=== PATIENT | male | born 1980 | race Hispanic/Latino ===

== ENCOUNTER 2020-11-24 15:00 | Emergency (ER) | payer SELFPAY ==
--- OUTSIDE RECORDS SUMMARY | 2020-11-24 15:04 | XMS REPORT | Continuity of Care Document ---
:1980 Author Organization [employer] Care Team Providers Name Role Phone [employer] Unavailable Un available Problems Problem Status Onset Classification Date Comments Sourc e Date Reported Priapism, 02/14/2017 [place] unspecified 7 [place] OTHER Active Sugar 7 [place] Priapism 02/10/[address], [place] PAIN IN GROIN Active Sug ar AREA 7 [place] PAIN IN GROIN Active Sug ar 7 [place] PRIAPISM Active [address] Discharge 06/17/2016 [place] Diagnosis: 6 [place] Priapism, unspecified ABDOMINAL PAIN Active Alzar gar 6 [place] GROIN PAIN Active Sugar 6 [place] Discharge 06/11/2016 [place] Diagnosis: 6 [place] Priapism Discharge 06/11/2016 [place] Diagnosis: 6 [place] Benign hypertension Discharge 02/21/2016 [place] Diagnosis: HTN 6 [place] (hypertension) CHEST PAIN Active [place] 2 [place] Hypertensive Active Problem 02/14/2017 [place] disorder, Medical [facility], arterial [place] (disorder) Priapism Active Problem 02/14/2017 [facility] (disorder) [facility], [place] Medications Medication Details Route Status Patient Ordering Order Source Instructions Provider Date Morphine Notes: (Same Inactive 02/11[facility] Sugar as:MORPhine 2016 [facility] Sulfate) Morphine 2 mg, Route: Inactive 02/11[facility] Sugar IVP, ONCE, 2016 [place] Dosing Weight 89.091, kg, Priority: STAT, Start date: 02/11/17 13:55:00 CDT, Stop date: 02/11/17 13:55:00 CDT phenylephrine 10 Notes: Same Inactive 02/11[facility] Sugar mg/mL injectable as: 2016 [facility] solution Naeem-Synephrin e Terbutaline Notes: DO Inactive Suga r NOT USE IN 2017 [facility] [employer]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 (Same As: Poornima) Sodium Chloride 0.154 1,000 mL, Inactive [place] MEQ/ML Injectable 1,000 ml/hr, 2017 L and Solution Infuse Over: 1 hr, Route: IV, 1,000, Drug form: INJ, ONCE, Priority: STAT, Dosing Weight 89.091 kg, Start date: 02/11/17 13:09:00 CDT, Duration: 1 doses or times, Stop date: 02/11/17 13:09:00 CDT Zofran ODT 4 mg, Route: Inactive [place] PO, Drug 2016 [place] form: TABDIS, ONCE, Dosing Weight 89.091, kg, Priority: STAT, Start date: 02/11/17 13:00:00 CDT, Stop date: 02/11/17 13:00:00 CDT Morphine 4 mg, Route: Inactive [place] IM, ONCE, 2016 [facility] Dosing Weight 89.091, kg, Priority: STAT, Start date: 02/11/17 13:00:00 CDT, Stop date: 02/11/17 13:00:00 CDT Acetaminophen 325 MG 1 tab, PO, Active Sugar / Hydrocodone Q6H, PRN Pain 2016 [facility] Bitartrate 5 MG Oral Score 6-10, Tablet [[place] 5/325] do not drive or operate heavy machinery while taking this medication not to exceed 8 tablets/day, # 15 tab, 0 Refill(s) Amlodipine 10 MG Oral 10 mg = 1 Active Sugar Tablet [Norvasc] tab, PO, 2016 Daily, # 30 tab, 0 Refill(s) Labetalol 20 mg, Route: Inactive [place] IVP, Drug 2016 [place] form: INJ, ONCE, Dosing Weight 85.909, kg, Start date: 02/07/17 12:25:00 CDT, Stop date: 02/07/17 12:25:00 CDT Clonidine 0.2 mg, Inactive [place] Hydrochloride 0.2 MG Route: PO, 2016 [facility] Oral Tablet Drug form: TAB, ONCE, Dosing Weight 85.909, kg, Priority: STAT, Start date: 02/07/17 11:45:00 CDT, Stop date: 02/07/17 11:45:00 CDT Labetalol 20 mg, Route: Inactive [place] IVP, Drug 2017 [place] form: INJ, ONCE, Dosing Weight 85.909, kg, Priority: STAT, Start date: 02/07/17 11:41:00 CDT, Stop date: 02/07/17 11:41:00 CDT Morphine 4 mg, Route: Inactive [place] IM, ONCE, 2016 [place] Dosing Weight 85.909, kg, Priority: STAT, Start date: 02/07/17 11:31:00 CDT, Stop date: 02/07/17 11:31:00 CDT Morphine 4 mg, Route: Inactive [place] IM, ONCE, 2016 [place] Dosing Weight 85.909, kg, Priority: STAT, Start date: 02/07/17 10:40:00 CDT, Stop date: 02/07/17 10:40:00 CDT Zofran ODT 4 mg, Route: Inactive [place] PO, Drug 2016 [place] form: TABDIS, ONCE, Dosing Weight 85.909, kg, Priority: STAT, Start date: 02/07/17 10:40:00 CDT, Stop date: 02/07/17 10:40:00 CDT Zofran ODT 4 mg, Route: Inactive [place] PO, Drug 2016 [place] form: TABDIS, ONCE, Dosing Weight 85.909, kg, Priority: STAT, Start date: 02/07/17 10:39:00 CDT, Stop date: 02/07/17 10:39:00 CDT Morphine 4 mg, Route: Inactive [place] IM, ONCE, 2016 [place] Dosing Weight 85.909, kg, Priority: STAT, Start date: 02/07/17 10:39:00 CDT, Stop date: 02/07/17 10:39:00 CDT Naeem-Synephrine Notes: Same Inactive Mady hammond as: 2017 [place] Naeem-Synephrin e Phenylephrine 10 mg, Route: Inactive Sugar INJ, Q15Min, 2017 [place] Dosing Weight 85.909, kg, PRN, Start date: 02/07/17 10:26:00 CDT, Duration: 30 day, Stop date: 03/09/17 10:25:00 CDT, pripism Lidocaine Notes: (Same Inactive [place] Hydrochloride 10 as: 2016 [place] MG/ML Injectable Xylocaine) Solution Dilaudid 0.5 mg, Inactive [place] Route: IM, 2017 [place] ONCE, Dosing Weight 89.091, kg, Priority: STAT, Start date: 02/01/17 11:03:00 CDT, Stop date: 02/01/17 11:03:00 CDT Zofran 4 mg, Route: Inactive [place] IM, Drug 2016 [place] form: INJ, ONCE, Dosing Weight 89.091, kg, Priority: STAT, Start date: 02/01/17 10:08:00 CDT, Stop date: 02/01/17 10:08:00 CDT Zofran ODT Notes: (Same Inactive [place] as: Zofran 2016 [place] ODT) Dilaudid 0.5 mg, Inactive [place] Route: IM, 2016 [place] ONCE, Dosing Weight 89.091, kg, Priority: STAT, Start date: 02/01/17 10:01:00 CDT, Stop date: 02/01/17 10:01:00 CDT Phenylephrine 1 mg, Route: Inactive S ugar SUB-Q, ONCE, 2016 [facility] Dosing Weight 89.091, kg, Start date: 02/01/17 9:55:00 CDT, Stop date: 02/01/17 9:55:00 CDT Dilaudid 1 mg, Route: Inactive Sugar IVP, ONCE, 2016 [facility] Dosing Weight 89.091, kg, Priority: STAT, Start date: 02/01/17 9:54:00 CDT, Stop date: 02/01/17 9:54:00 CDT Amlodipine 10 mg, Route: Inactive [place] as PO, Drug 2016 Medical form: TAB, Center ONCE, Dosing Weight 100.909, kg, Start date: 01/28/17 14:15:00 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, Stop date: 01/28/17 14:15:00 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 Dilaudid 0.5 mg, Inactive [place] Route: IVP, 2017 Medical ONCE, Dosing Center Weight 100.909, kg, Priority: STAT, Start date: 01/28/17 13:39:00 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, Stop date: 01/28/17 13:39:00 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 phenylephrine 100 Inactive 01/28[facility] [place] microgram, 1 2017 Medical mL, Route: Center intraCAVERNOS AL, Drug form: INJ, PRN, PRN Other -See Comment, Start date: 01/28/17 13:09:00 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, Duration: 5 doses or times, Stop date: Limited # of times Lidocaine Notes: (Same Inactive [place] Hydrochloride 10 as: 2017 Medical MG/ML Injectable Xylocaine) [facility] er Solution phenylephrine 10 1 mL, Route: Inactive [place] mg/mL injectable intraCAVERNOS 2017 M edical solution AL, ONCE, Center Dosing Weight 100.909, kg, Start date: 01/28/17 12:55:00 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, Stop date: 01/28/17 12:55:00 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 Morphine Notes: (Same Inactive [place] as:MORPhine 2017 Medical Sulfate) [place] Ondansetron Notes: (Same Inactive [place] as as: Zofran) 2017 [facility] Center MEDICATION WASTE Product Size: 4 mg Product Wasted: _0__ mg Zofran 4 mg, Route: Inactive [place] IVP, Drug 2016 [place] form: INJ, ONCE, Dosing Weight 93.182, kg, Priority: STAT, Start date: 06/14/16 13:33:00 CDT, Stop date: 06/14/16 13:33:00 CDT Dilaudid 0.5 mg, Inactive [place] Route: IVP, 2016 [place] ONCE, Dosing Weight 93.182, kg, Priority: STAT, Start date: 06/14/16 13:33:00 CDT, Stop date: 06/14/16 13:33:00 CDT Sodium Chloride 0.154 1,000 mL, Inactive 06/14[facility] [place] MEQ/ML Injectable 1000 ml/hr, [address] [place] [address] Solution Infuse Over: 1 hr, Route: IV, 1,000, Drug form: INJ, ONCE, Priority: STAT, Dosing Weight 93.182 kg, Start date: 06/14/16 13:27:00 CDT, Duration: 1 doses or times, Stop date: 06/14/16 13:27:00 CDT Morphine 2 mg, Route: Inactive [place] IM, Drug 2015 [place] form: INJ, ONCE, Dosing Weight 93.182, kg, Priority: STAT, Start date: 06/14/16 12:11:00 CDT, Stop date: 06/14/16 12:11:00 CDT Phenylephrine Notes: (Same Inactive S ugar as: 2015 [facility] Naeem-Synephrin e) Morphine Notes: (Same Inactive [place] as:MORPhine 2015 [facility] Sulfate) Zofran ODT Notes: (Same Inactive [place] as: Zofran 2015 [facility] ODT) bupivacaine 0.5% 1 inj, Route: Inactive [place] SUB-Q, Dosing 2015 [facility] Weight 93.182, kg, ONCE, STAT, Start date: 06/14/16 11:03:00 CDT, Stop date: 06/14/16 11:03:00 CDT lidocaine 2% 1 inj, Route: Inactive S ugar SUB-Q, Dosing 2015 [place] Weight 93.182, kg, ONCE, STAT, Start date: 06/14/16 11:02:00 CDT, Stop date: 06/14/16 11:02:00 CDT Acetaminophen 325 MG 1-2 tab, PO, Active Sugar / Hydrocodone Q4-6H, PRN 2015 [facility] Bitartrate 5 MG Oral Pain, X 5 Tablet [[place] 5/325] day, # 15 tab, 0 Refill(s) Dilaudid Notes: (Same Inactive [place] as: Dilaudid) 2015 [facility] Morphine 4 mg, Route: Inactive [place] IM, ONCE, 2015 [facility] Dosing Weight 88.636, kg, Start date: 06/08/16 13:42:00 CDT, Stop date: 06/08/16 13:42:00 CDT Morphine 4 mg, Route: Inactive [place] IM, Drug 2015 [place] form: INJ, ONCE, Dosing Weight 88.636, kg, Priority: STAT, Start date: 06/08/16 13:26:00 CDT, Stop date: 06/08/16 13:26:00 CDT Phenylephrine Route: SUB-Q, Inactive [place] ONCE, Dosing 2015 [facility] Weight 88.636, kg, Start date: 06/08/16 13:23:00 CDT, Stop date: 06/08/16 13:23:00 CDT Marcaine HCl 10 mL, Route: Inactive S ugar SUB-Q, Dosing 2015 [facility] Weight 88.636, kg, ONCE, Start date: 06/08/16 13:22:00 CDT, Stop date: 06/08/16 13:22:00 CDT Amlodipine 10 mg, Route: Inactive Sug ar PO, Drug 2015 [facility] form: TAB, ONCE, Dosing Weight 91.818, kg, Start date: 03/22/16 14:16:00 CDT, Stop date: 03/22/16 14:16:00 CDT Morphine 4 mg, Route: Inactive [place] IVP, ONCE, 2015 [facility] Dosing Weight 91.818, kg, Priority: STAT, Start date: 03/22/16 13:33:00 CDT, Stop date: 03/22/16 13:33:00 CDT Hydralazine Notes: (Same Inactive Sug ar as: 2015 Apresoline) Push over 5 minutes Morphine Notes: (Same Inactive [place] as:MORPhine 2015 [facility] Sulfate) Ondansetron Notes: (Same Inactive Sug ar as: Zofran) 2015 MEDICATION WASTE Product Size: 4 mg Product Wasted: ___ mg Phenylephrine Notes: Same Inactive Lazar gar as: 2015 Naeem-Synephrin e Hydrochlorothiazide Notes: (Same Inactive [place] as: 2015 Hydrodiuril) With food. hydrochlorothiazide 12.5 mg = 1 Active [place] 12.5 mg oral tablet tab, PO, 2015 [place] d Daily, # 30 tab, 0 Refill(s) amLODIPine 10 mg oral 10 mg = 1 Active [place] tablet tab, PO, 2015 [place] Daily, # 30 tab, 0 Refill(s) Ondansetron 4 mg, Route: Inactive Sug ar IVP, ONCE, 2015 [facility] Dosing Weight 90.136, kg, Priority: STAT, Start date: 02/18/16 15:02:00, Stop date: 02/18/16 15:02:00 Hydromorphone 1 mg, Route: Inactive S ugar IVP, ONCE, 2015 [facility] Dosing Weight 90.136, kg, Priority: STAT, Start date: 02/18/16 15:02:00, Stop date: 02/18/16 15:02:00 Phenylephrine Notes: (Same Inactive S ugar as: 2015 [facility] Naeem-Synephrin e) Labetalol 20 mg, Route: Inactive [place] IVP, ONCE, 2015 [facility] Dosing Weight 90.136, kg, Priority: STAT, Start date: 02/18/16 14:54:00, Stop date: 02/18/16 14:54:00 Saline Flush 0.9% Notes: (Same Inactive [place] as: BD 2015 [facility] Posiflush) Acetaminophen 325 MG 1-2 tab, PO, Active [place] / Hydrocodone Q4-6H, PRN 2015 [facility] Bitartrate 5 MG Oral Pain, X 5 Tablet [[place] 5/325] day, # 15 tab, 0 Refill(s) amLODIPine 5 mg oral 5 mg = 1 tab, Active 02/08 [place] tablet PO, Daily, # 2016 [place] 30 tab, 0 Refill(s) Marcaine HCl Notes: Inactive 02/08[facility] Sugar Preservative 2015 [facility] free. 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 (Same As: Brethine) Non-Formulary Dilaudid 1 mg, Route: Inactive [place] IVP, ONCE, 2015 [facility] Dosing Weight 93.636, kg, Priority: STAT, Start date: 02/09/16 14:06:00, Stop date: 02/09/16 14:06:00 Labetalol 20 mg, Route: Inactive [place] IVP, Drug 2015 [place] form: INJ, ONCE, Dosing Weight 93.636, kg, Priority: STAT, Start date: 02/09/16 14:06:00, Stop date: 02/09/16 14:06:00 phenylephrine 10 Notes: (Same Inactive H Sugar mg/mL injectable as: 2015 [facility] solution Naeem-Synephrin e) Unknown Home Refill(s) 0 Active [place] Medication 2015 Phenylephrine 1 mg, Route: Inactive S ugar SUB-Q, ONCE, 2015 [facility] Dosing Weight 93.636, kg, Start date: 02/09/16 11:15:00, Stop date: 02/09/16 11:15:00 Morphine 4 mg, Route: Inactive [place] IVP, Drug 2015 form: INJ, ONCE, Dosing Weight 93.636, kg, Priority: STAT, Start date: 02/09/16 11:12:00, Stop date: 02/09/16 11:12:00 Phenergan 25 mg oral 25 mg, 1 tab, PO Active aton 08/23 [place] tablet PO, Q4H, PRN, 2011 15 tab, Nausea, Substitution Allowed Pepcid 40 mg oral 40 mg, 1 tab, PO Active [place] tablet PO, Daily, 2011 tab, Substitution Allowed morphine Sulfate 2 mg, Route: IVP No Longer [place] IVP, ONCE, Active 2011 [facility] Dosing Weight 81.818, kg, Priority: STAT, Start date: 08/23/12 12:25:00, Stop date: 08/23/12 12:25:00 ondansetron 4 mg, Route: IVP No Longer Ye[place] Lazar gar IVP, ONCE, Active 2011 [facility] Dosing Weight 81.818, kg, Priority: STAT, Start date: 08/23/12 12:25:00, Stop date: 08/23/12 12:25:00 Sodium Chloride 0.9% 1,000 mL, IV No Longer [place] (Bolus) IV 1000 mL Rate: 1,000 Active 2011 L and ml/hr, Infuse over: 1 hr, Route: IV, Dosing Weight 81.818 kg, Total Volume: 1,000, Bolus Dose, Priority: STAT, Start date: 08/23/12 12:25:00, Duration: 1 doses or times, Stop date: 08/23/12 13:24:00 Pepcid 20 mg, Route: IVP No Longer [place] IVP, ONCE, Active 2011 [facility] Dosing Weight 81.818, kg, Start date: 08/23/12 12:25:00, Stop date: 08/23/12 12:25:00 Allergies, Adverse Reactions, Alerts No Known Medication Allergies Immunizations No Data Provided for This Section Results Order Name Results Value Reference Date Interpretation Comments [place] r[place] DRUG SCREEN U Opiate Scr Positive Negative 02/11 Lazar gar *ABN* /2016 [facility] (02/11/17 3:19 PM) DRUG SCREEN U Edna Scr Negative Negative 02/11 [place] *NA* [facility] (02/11/17 3:19 PM) DRUG SCREEN U Benzodia Negative Negative 02/11 [place] Scr *NA* [facility] (02/11/17 3:19 PM) DRUG SCREEN U Amph Scr Negative Negative 02/11 [place] *NA* [facility] (02/11/17 3:19 PM) DRUG SCREEN UDS Note See Note 02/11 [place] (02/11/17 3:19 PM) [facility] DRUG SCREEN U Phencyc Scr Negative Negative 02/11 S ugar *NA* [facility] (02/11/17 3:19 PM) DRUG SCREEN U Cocaine Scr Negative Negative 02/11 S ugar *NA* [facility] (02/11/17 3:19 PM) DRUG SCREEN U Cannab Scr Positive Negative 02/11 Lazar gar *ABN* /2016 [facility] (02/11/17 3:19 PM) URINE AND UA <=1.0 0.1 - 1.0 02/11 [place] STOOL Urobilinogen mg/dL /2016 [facility] URINE AND UA Spec Grav 1.011 <=1.030 02/11 [place] STOOL [place] URINE AND UA Sq Epi None Seen 02/11 [place] STOOL [place] URINE AND UA Mucus Few /LPF None Seen 02/11 [place] STOOL /LPF /2016 [place] URINE AND UA RBC 1 0 - 2 02/11 [place] STOOL [place] URINE AND UA WBC <1 0 - 5 02/11 [place] STOOL [place] URINE AND UA Leuk Est Negative Negative 02/11 [place] STOOL (02/11/17 3:19 PM) Land URINE AND UA Nitrite Negative Negative 02/11 [place] STOOL (02/11/17 3:19 PM) Land URINE AND UA Bili Negative Negative 02/11 [place] STOOL *NA* /2016 [place] (02/11/17 3:19 PM) URINE AND UA Blood Negative Negative 02/11 [place] STOOL (02/11/17 3:19 PM) Land URINE AND UA Protein Negative Negative 02/11 [place] STOOL mg/dL mg/dL [place] URINE AND UA pH 7.0 5.0 - 8.0 02/11 [place] STOOL [place] URINE AND UA Glucose Negative Negative 02/11 [place] STOOL mg/dL mg/dL [place] URINE AND UA Ketones Negative Negative 02/11 [place] STOOL mg/dL mg/dL [place] URINE AND UA Turbidity Clear Clear 02/11 [place] STOOL (02/11/17 3:19 PM) Land URINE AND UA Color Light Yellow Yellow 02/11 [place] STOOL *NA* /2016 [facility] (02/11/17 3:19 PM) CHEM PANEL eGFR 101 02/11 Comment: The [facility] eGFR is calculated using the CKD-EPI formula. In most young, healthy individuals the eGFR will be >90 mL/min/1.73m2 . The eGFR declines with age. An eGFR of 60-89 may be normal in some populations, particularly the elderly, for whom the CKD-EPI formula has not been extensively validated. Use of the eGFR is not recommended in the following populations:< br/>
Susie viduals with unstable creatinine concentration s, including patients and those with serious co-morbid conditions.<b r/>
Patie nts with extremes in muscle mass or diet.

The data above are obtained from the National Kidney Disease Education Program (NKDEP) which additionally recommends that when the eGFR is used in patients with extremes of body mass index for purposes of drug dosing, the eGFR should be multiplied by the estimated BMI. CHEM PANEL Sodium Lvl 143 135 - 145 02/11 [place] CHEM PANEL BUN 17 7 - 22 02/11 [place] CHEM PANEL Creatinine 0.97 0.50 - 03 [place] Lvl 1.40 /2016 [place] CHEM PANEL Glucose Lvl 116 70 - 99 02/11 [place] CHEM PANEL Chloride Lvl 107 95 - 109 02/11 [place] CHEM PANEL CO2 29 24 - 32 02/11 [place] CHEM PANEL Potassium Lvl 4.2 3.5 - 5.1 02/11 Lazar gar [place] CHEM PANEL Calcium Lvl 7.7 8.5 - 10.5 02/11 [place] CHEM PANEL AGAP 11.2 10.0 - 02/11 [place] 20.0 [place] HEMATOLOGY WBC 13.0 3.7 - 10.4 02/11 [place] HEMATOLOGY Hgb 14.4 14.0 - 02/11 [place] 18.0 [place] HEMATOLOGY Hct 43.2 42.0 - 02/11 [place] 54.0 [place] HEMATOLOGY RBC 4.58 4.70 - 02/11 [place] 6.10 [place] HEMATOLOGY MPV 8.6 7.4 - 10.4 02/11 [place] HEMATOLOGY MCV 94.4 80.0 - 02/11 [place] 94.0 [place] HEMATOLOGY RDW 14.1 11.5 - 02/11 [place] 14.5 [place] HEMATOLOGY Platelet 166 133 - 450 02/11 [place] HEMATOLOGY MCH 31.4 27.0 - 02/11 [place] 31.0 [place] HEMATOLOGY MCHC 33.3 32.0 - 02/11 [place] 36.0 [place] HEMATOLOGY Basophils # 0.1 0.0 - 0.2 02/11 [place] HEMATOLOGY Eosinophils # 0.2 0.0 - 0.5 02/11 [place] HEMATOLOGY Lymphocytes # 2.9 1.0 - 5.5 02/11 [place] gar [place] HEMATOLOGY Monocytes # 0.8 0.0 - 0.8 02/11 [place] HEMATOLOGY Segs-Bands # 9.0 1.5 - 8.1 02/11 [place] HEMATOLOGY Basophils 0.5 0.0 - 1.0 02/11 [place] HEMATOLOGY Lymphocytes 22.5 20.0 - 03 [place] 40.0 [place] HEMATOLOGY Monocytes 6.2 2.0 - 12.0 02/11 [place] HEMATOLOGY Segs 69.5 45.0 - 02/11 [place] 75.0 [place] HEMATOLOGY Eosinophils 1.3 0.0 - 4.0 02/11 [place] /2016 [facility] HEMATOLOGY Sickle Cell Negative Negative 02/11 [place] Screen (02/11/17 1:31 PM) [facility] ELECTROLYTE AGAP 14.8 10.0 - 01/28 [place] S 20.0 [facility] ELECTROLYTE eGFR 111 01/28 Result [facility] Comment: The Medical eGFR is Center calculated using the CKD-EPI formula. In most young, healthy individuals the eGFR will be >90 mL/min/1.73m2 . The eGFR declines with age. An eGFR of 60-89 may be normal in some populations, particularly the elderly, for whom the CKD-EPI formula has not been extensively validated. Use of the eGFR is not recommended in the following populations:< br/>
Susie viduals with unstable creatinine concentration s, including patients and those with serious co-morbid conditions.<b r/>
Patie nts with extremes in muscle mass or diet.

The data above are obtained from the National Kidney Disease Education Program (NKDEP) which additionally recommends that when the eGFR is used in patients with extremes of body mass index for purposes of drug dosing, the eGFR should be multiplied by the estimated BMI. ELECTROLYTE Chloride Lvl 102 95 - 109 01/28 [facility] as [facility] ELECTROLYTE CO2 25 24 - 32 01/28 [facility] ELECTROLYTE Potassium Lvl 3.8 3.5 - 5.1 01/28 [place] [facility] ELECTROLYTE Calcium Lvl 8.4 8.5 - 10.5 01/28 [place] [facility] ELECTROLYTE Sodium Lvl 138 135 - 145 01/28 [facility] ELECTROLYTE Creatinine 0.88 0.50 - 01/28 [facility] S Lvl 1.40 [facility] ELECTROLYTE BUN 8 7 - 22 01/28 [facility] ELECTROLYTE Glucose Lvl 106 70 - 99 01/28 [facility] HEMATOLOGY Monocytes 6.6 2.0 - 12.0 01/28 [facility]2016 [facility] HEMATOLOGY Segs 61.5 45.0 - 01/28 [place] 75.0 [facility] HEMATOLOGY Lymphocytes 29.4 20.0 - 01/28 [place] 40.0 [facility] HEMATOLOGY Basophils 0.5 0.0 - 1.0 01/28 [facility] HEMATOLOGY Segs-Bands # 7.4 1.5 - 8.1 01/28 [facility] HEMATOLOGY Lymphocytes # 3.5 1.0 - 5.5 01/28 [facility] HEMATOLOGY Monocytes # 0.8 0.0 - 0.8 01/28 [facility] HEMATOLOGY Eosinophils 2.0 0.0 - 4.0 01/28 [facility] HEMATOLOGY Basophils # 0.1 0.0 - 0.2 01/28 [facility] HEMATOLOGY Eosinophils # 0.2 0.0 - 0.5 01/28 [facility] HEMATOLOGY MCV 93.3 80.0 - 01/28 94.0 [facility] HEMATOLOGY MCHC 34.0 32.0 - 01/28 [place] 36.0 [facility] HEMATOLOGY MCH 31.7 27.0 - 01/28 [place] 31.0 [facility] HEMATOLOGY RDW 14.1 11.5 - 01/28 [place] 14.5 [facility] HEMATOLOGY Platelet 129 133 - 450 01/28 [facility] HEMATOLOGY MPV 8.2 7.4 - 10.4 01/28 [facility] HEMATOLOGY WBC 12.0 3.7 - 10.4 01/28 [facility] HEMATOLOGY Hct 41.8 42.0 - 01/28 [place] 54.0 [facility] HEMATOLOGY RBC 4.48 4.70 - 01/28 [place] 6.10 [facility] HEMATOLOGY Hgb 14.2 14.0 - 01/28 [place] 18.0 [facility] URINE AND UA RBC 0-2 /HPF 0 - 2 06/14 [place] URINE AND UA Bacteria Occasional None Seen 06/14 Lazar gar STOOL /HPF /HPF /2015 [place] URINE AND UA Sq Epi Rare /LPF Few /LPF 06/14 [place] URINE AND UA WBC 0-2 /HPF None Seen 06/14 [place] STOOL /HPF /2015 [place] URINE AND UA Leuk Est Negative Negative 06/14 [place] STO[place] (06/14/16 2:33 PM) /2015 [place] URINE AND UA Blood Negative Negative 06/14 [place] STOOL (06/14/16 2:33 PM) /2015 [place] URINE AND UA 0.2 0.1 - 1.0 06/14 [place] STOOL Urobilinogen /2015 [place] URINE AND UA Ketones Negative Negative 06/14 [place] STO[place] mg/dL mg/dL /2015 [place] URINE AND UA Nitrite Negative Negative 06/14 [place] ST[place] (06/14/16 2:33 PM) /2015 [place] URINE AND UA Turbidity Clear Clear 06/14 [place] STOOL (06/14/16 2:33 PM) [place] URINE AND UA Spec Grav 1.020 <=1.030 06/14 [place] STOOL /2015 [place] URINE AND UA Bili Negative Negative 06/14 [place] STOOL *NA* /2015 [place] (06/14/16 2:33 PM) URINE AND UA pH 5.5 5.0 - 8.0 06/14 [place] STOOL /2015 [place] URINE AND UA Protein Negative Negative 06/14 [place] STOOL mg/dL mg/dL /2015 [place] URINE AND UA Glucose Negative Negative 06/14 [place] STO[place] mg/dL mg/dL /2015 [place] URINE AND UA Color Yellow Yellow 06/14 [place] STOOL *NA* /2015 [place] (06/14/16 2:33 PM) DRUG SCREEN U Phencyc Scr Negative Negative 06/14 [facility] S ugar *NA* (06/14/16 2:32 PM) DRUG SCREEN UDS Note See Note 06/14 [place] (06/14/16 2:32 PM) [place] DRUG SCREEN U Edna Scr Negative Negative 06/14 [facility] [place] *NA* /2015 [place] (06/14/16 2:32 PM) DRUG SCREEN U Cocaine Scr Negative Negative 06/14 MH S ugar *NA* [place] (06/14/16 2:32 PM) DRUG SCREEN U Amph Scr Negative Negative 06/14 [facility] [place] *NA* [place] (06/14/16 2:32 PM) DRUG SCREEN U Cannab Scr Positive Negative 06/14 MH Lazar gar *ABN* /2015 (06/14/16 2:32 PM) DRUG SCREEN U Opiate Scr Positive Negative 06/14 MH [place] *ABN* /2015 [place] (06/14/16 2:32 PM) DRUG SCREEN U Benzodia Negative Negative 06/14 MH [place] Scr *NA* /2015 [place] (06/14/16 2:32 PM) ELECTROLYTE Chloride Lvl 110 95 - 109 06/14 MH [place] S /2015 [place] ELECTROLYTE CO2 26 24 - 32 06/14 MH [place] S [place] ELECTROLYTE Calcium Lvl 7.7 8.5 - 10.5 06/14 MH L[facility] gar S [place] ELECTROLYTE eGFR 120 06/14 Result MH [place] S Comment: The [place] eGFR is calculated using the CKD-EPI formula. In most young, healthy individuals the eGFR will be >90 mL/min/1.73m2 . The eGFR declines with age. An eGFR of 60-89 may be normal in some populations, particularly the elderly, for whom the CKD-EPI formula has not been extensively validated. Use of the eGFR is not recommended in the following populations:< br/>
Susie viduals with unstable creatinine concentration s, including patients and those with serious co-morbid conditions.<b r/>
Patie nts with extremes in muscle mass or diet.

The data above are obtained from the National Kidney Disease Education Program (NKDEP) which additionally recommends that when the eGFR is used in patients with extremes of body mass index for purposes of drug dosing, the eGFR should be multiplied by the estimated BMI. ELECTROLYTE Potassium Lvl 3.7 3.5 - 5.1 06/14 MH S ugar [place] ELECTROLYTE Creatinine 0.74 0.50 - 07 MH [place] Lvl 1.40 /2015 [place] ELECTROLYTE Sodium Lvl 144 135 - 145 06/14 MH [place] ELECTROLYTE Glucose Lvl 97 70 - 99 / MH [place] S 2016 [place] ELECTROLYTE BUN 12 7 - 22 / MH [place] S /2016 [place] ELECTROLYTE AGAP 11.7 10.0 - 07 MH [place] S 20.0 /2015 [place] HEMATOLOGY Eosinophils 1.1 0.0 - 4.0 /24 MH [place] /2016 [place] HEMATOLOGY Monocytes 5.6 2.0 - 12.0 /24 MH [place] /2016 [place] HEMATOLOGY Segs 69.2 45.0 - 07/ MH [place] 75.0 /2016 [place] HEMATOLOGY Lymphocytes 23.7 20.0 - 07 MH [place] 40.0 /2015 [place] HEMATOLOGY Basophils 0.4 0.0 - 1.0 07/24 MH [place] /2015 [place] HEMATOLOGY Monocytes # 0.6 0.0 - 0.8 07/24 MH [place] /2015 [place] HEMATOLOGY Segs-Bands # 8.0 1.5 - 8.1 07/24 MH [place] HEMATOLOGY Lymphocytes # 2.7 1.0 - 5.5 07/24 MH [place] gar /2015 [place] HEMATOLOGY Basophils # 0.0 0.0 - 0.2 07/24 [facility] [place] 2016 [place] HEMATOLOGY Eosinophils # 0.1 0.0 - 0.5 07/24 MH [place] HEMATOLOGY RDW 13.9 11.5 - 06/14 MH [place] 14.5 [place] HEMATOLOGY MCV 93.7 80.0 - 06/14 [facility] [place] 94.0 [place] HEMATOLOGY Platelet 133 133 - 450 / MH [place] HEMATOLOGY MPV 8.2 7.4 - 10.4 / MH [place] HEMATOLOGY MCH 31.3 27.0 - 06/14 MH [place] 31.0 [place] HEMATOLOGY MCHC 33.4 32.0 - 06/14 MH [place] 36.0 [place] HEMATOLOGY Hgb 13.5 14.0 - 06/14 [facility] [place] 18.0 [place] HEMATOLOGY RBC 4.30 4.70 - 06/14 MH [place] 6.10 [place] HEMATOLOGY WBC 11.6 3.7 - 10.4 / MH [place] HEMATOLOGY Hct 40.3 42.0 - 06/14 MH [place] 54.0 [place] CHEM PANEL eGFR 116 05/ Result Comment: The [place] eGFR is calculated using the CKD-EPI formula. In most young, healthy individuals the eGFR will be >90 mL/min/1.73m2 . The eGFR declines with age. An eGFR of 60-89 may be normal in some populations, particularly the elderly, for whom the CKD-EPI formula has not been extensively validated. Use of the eGFR is not recommended in the following populations:< br/>
Susie viduals with unstable creatinine concentration s, including patients and those with serious co-morbid conditions.<b r/>
Patie nts with extremes in muscle mass or diet.

The data above are obtained from the National Kidney Disease Education Program (NKDEP) which additionally recommends that when the eGFR is used in patients with extremes of body mass index for purposes of drug dosing, the eGFR should be multiplied by the estimated BMI. CHEM PANEL Sodium Lvl 143 135 - 145 05/ MH [place] /2016 [place] CHEM PANEL Creatinine 0.80 0.50 - 05/ MH [place] Lvl 1.40 /2015 [place] CHEM PANEL BUN 13 7 - 22 05/ MH [place] /2016 [place] CHEM PANEL Glucose Lvl 105 70 - 99 05/ MH [place] /2016 [place] CHEM PANEL Calcium Lvl 8.1 8.5 - 10.5 05/ [place] /2015 [place] CHEM PANEL CO2 26 24 - 32 05/ MH [place] /2016 [place] CHEM PANEL Chloride Lvl 110 95 - 109 05/ [place] /2015 [place] CHEM PANEL Potassium Lvl 3.7 3.5 - 5.1 05/ Lazar gar /2015 [place] CHEM PANEL AGAP 10.7 10.0 - 05/ MH [place] 20.0 /2015 [place] HEMATOLOGY MCH 31.2 27.0 - 05/ [place] 31.0 /2016 [place] HEMATOLOGY MCV 92.1 80.0 - 05/ [place] 94.0 /2016 [place] HEMATOLOGY Hct 41.0 42.0 - 05/ MH [place] 54.0 /2016 [place] HEMATOLOGY Hgb 13.9 14.0 - 05/ MH [place] 18.0 /2016 [place] HEMATOLOGY WBC 12.8 3.7 - 10.4 05/ MH [place] /2016 [place] HEMATOLOGY RBC 4.45 4.70 - 05/ [place] 6.10 /2016 [place] HEMATOLOGY Platelet 153 133 - 450 05/ MH [place] /2016 [place] HEMATOLOGY RDW 13.8 11.5 - 05/01 [place] 14.5 /2016 [place] HEMATOLOGY MCHC 33.9 32.0 - 05/01 MH [place] 36.0 /2016 [place] HEMATOLOGY MPV 8.7 7.4 - 10.4 05/01 MH [place] /2016 [place] HEMATOLOGY Segs 67.1 45.0 - 05/01 MH [place] 75.0 /2016 [place] HEMATOLOGY Lymphocytes 23.6 20.0 - 05/01 MH [place] 40.0 /2016 [place] HEMATOLOGY Basophils # 0.0 0.0 - 0.2 05/01 MH [place] /2016 [place] HEMATOLOGY Monocytes # 1.0 0.0 - 0.8 05/01 MH [place] /2016 [facility] HEMATOLOGY Eosinophils # 0.2 0.0 - 0.5 03/22 [place] [place] HEMATOLOGY Segs-Bands # 8.6 1.5 - 8.1 03/22 [place] HEMATOLOGY Lymphocytes # 3.0 1.0 - 5.5 03/22 [place] HEMATOLOGY Monocytes 7.6 2.0 - 12.0 03/22 [place] HEMATOLOGY Eosinophils 1.4 0.0 - 4.0 03/22 [place] HEMATOLOGY Basophils 0.3 0.0 - 1.0 03/22 [place] CARDIAC Troponin-I <0.02 0.00 - 02/17 [place] ENZYMES 0.40 /2015 [facility] CARDIAC CK MB 0.7 0.5 - 3.6 02/17 [place] ENZYMES /2015 [facility] CARDIAC Total CK 109 12 - 191 02/17 [place] ENZYMES [facility] CARDIAC CK MB Index 0.6 0.0 - 2.5 02/17 [place] [facility] CHEM PANEL eGFR 104 02/17 Result Comment: The [facility] eGFR is calculated using the CKD-EPI formula. In most young, healthy individuals the eGFR will be >90 mL/min/1.73m2 . The eGFR declines with age. An eGFR of 60-89 may be normal in some populations, particularly the elderly, for whom the CKD-EPI formula has not been extensively validated. Use of the eGFR is not recommended in the following populations:< br/>
Susie viduals with unstable creatinine concentration s, including patients and those with serious co-morbid conditions.<b r/>
Patie nts with extremes in muscle mass or diet.

The data above are obtained from the National Kidney Disease Education Program (NKDEP) which additionally recommends that when the eGFR is used in patients with extremes of body mass index for purposes of drug dosing, the eGFR should be multiplied by the estimated BMI. CHEM PANEL B/C Ratio 17 6 - 25 02/17 [facility] CHEM PANEL Globulin 4.2 2.0 - 4.0 02/17 [facility] CHEM PANEL A/G Ratio 1.0 0.7 - 1.6 02/17 [place] CHEM PANEL AGAP 11.7 10.0 - 02/17 [place] 20.0 [place] CHEM PANEL AST 22 0 - 37 02/17 [place] CHEM PANEL Bili Total 0.4 0.2 - 1.3 02/17 [place] CHEM PANEL Alk Phos 165 39 - 136 02/17 [place] CHEM PANEL Creatinine 0.95 0.50 - 02/17 [place] Lvl 1.40 /2015 [place] CHEM PANEL Sodium Lvl 140 135 - 145 02/17 [place] CHEM PANEL BUN 16 7 - 22 02/17 [place] CHEM PANEL Glucose Lvl 113 70 - 99 02/17 [place] CHEM PANEL Albumin Lvl 4.1 3.5 - 5.0 02/17 [place] CHEM PANEL Total Protein 8.3 6.4 - 8.4 02/17 [place] [place] CHEM PANEL ALT 51 0 - 65 02/17 [place] CHEM PANEL Calcium Lvl 8.5 8.5 - 10.5 02/17 [place] CHEM PANEL Chloride Lvl 104 95 - 109 02/17 [place] CHEM PANEL Potassium Lvl 3.7 3.5 - 5.1 02/17 [place] [place] CHEM PANEL CO2 28 24 - 32 02/17 [place] HEMATOLOGY MCHC 33.6 32.0 - 02/17 [place] 36.0 [place] HEMATOLOGY Platelet 174 133 - 450 02/17 [place] HEMATOLOGY MPV 8.4 7.4 - 10.4 02/17 [place] HEMATOLOGY RDW 13.2 11.5 - 02/17 [place] 14.5 [place] HEMATOLOGY WBC 11.9 3.7 - 10.4 02/17 [place] HEMATOLOGY RBC 4.84 4.70 - 02/17 [place] 6.10 /2015 [place] HEMATOLOGY Hgb 14.9 14.0 - 02/17 [place] 18.0 [place] HEMATOLOGY MCH 30.9 27.0 - 02/17 [place] 31.0 /2015 [place] HEMATOLOGY Hct 44.5 42.0 - 02/17 [place] 54.0 /2015 [place] HEMATOLOGY MCV 91.9 80.0 - 02/17 [place] 94.0 /2015 [place] HEMATOLOGY PT 12.2 12.0 - 02/17 [place] 14.7 /2015 [place] HEMATOLOGY INR 0.88 0.85 - 02/17 [place] 1.17 /2015 [place] HEMATOLOGY PTT 30.2 22.9 - 02/17 MH [place] 35.8 /2015 [place] HEMATOLOGY Monocytes # 0.5 0.0 - 0.8 02/17 [place] /2015 [place] HEMATOLOGY Eosinophils # 0.1 0.0 - 0.5 02/17 [place] HEMATOLOGY Lymphocytes # 2.5 1.0 - 5.5 02/17 [place] HEMATOLOGY Basophils # 0.0 0.0 - 0.2 02/17 [place] HEMATOLOGY Monocytes 4.4 2.0 - 12.0 02/17 [place] HEMATOLOGY Lymphocytes 21.1 20.0 - 02/17 [place] 40.0 [facility] HEMATOLOGY Segs-Bands # 8.7 1.5 - 8.1 02/17 [place] HEMATOLOGY Basophils 0.4 0.0 - 1.0 02/17 [facility] HEMATOLOGY Eosinophils 0.9 0.0 - 4.0 02/17 [place] [facility] HEMATOLOGY Segs 73.2 45.0 - 02/17 [place] 75.0 [facility] IMMUNOLOGY CDC HIV 4th Negative Negative 02/17 [place] GEN (02/18/16 3:19 PM) /2015 [place] DRUG SCREEN UDS Note See Note 02/08 MH [place] (02/09/16 3:07 PM) /2015 [place] DRUG SCREEN U Opiate Scr Positive Negative 02/08 Lazar gar *ABN* /2015 [place] (02/09/16 3:07 PM) DRUG SCREEN U Phencyc Scr Negative Negative 02/08 MH S ugar *NA* /2015 [place] (02/09/16 3:07 PM) DRUG SCREEN U Cannab Scr Positive Negative 02/08 MH [place] gar *ABN* /2015 [place] (02/09/16 3:07 PM) DRUG SCREEN U Cocaine Scr Negative Negative 02/08 MH S ugar *NA* [place] (02/09/16 3:07 PM) DRUG SCREEN U Edna Scr Negative Negative 02/08 MH [place] *NA* /2015 [place] (02/09/16 3:07 PM) DRUG SCREEN U Benzodia Negative Negative 02/08 MH [place] Scr *NA* /2015 [place] (02/09/16 3:07 PM) DRUG SCREEN U Amph Scr Negative Negative 02/08 [place] *NA* /2015 [place] (02/09/16 3:07 PM) ELECTROLYTE AGAP 10.5 10.0 - 02/08 MH [place] S 20.0 [place] ELECTROLYTE eGFR 116 02/08 Result MH [place] Comment: The [place] eGFR is calculated using the CKD-EPI formula. In most young, healthy individuals the eGFR will be >90 mL/min/1.73m2 . The eGFR declines with age. An eGFR of 60-89 may be normal in some populations, particularly the elderly, for whom the CKD-EPI formula has not been extensively validated. Use of the eGFR is not recommended in the following populations:< br/>
Susie viduals with unstable creatinine concentration s, including patients and those with serious co-morbid conditions.<b r/>
Patie nts with extremes in muscle mass or diet.

The data above are obtained from the National Kidney Disease Education Program (NKDEP) which additionally recommends that when the eGFR is used in patients with extremes of body mass index for purposes of drug dosing, the eGFR should be multiplied by the estimated BMI. ELECTROLYTE Calcium Lvl 8.1 8.5 - 10.5 02/08 MH Lazar gar S [place] ELECTROLYTE Chloride Lvl 108 95 - 109 02/08 MH Sug ar S [place] ELECTROLYTE CO2 28 24 - 32 02/08 MH [place] S [place] ELECTROLYTE Sodium Lvl 143 135 - 145 02/08 MH [place] ELECTROLYTE Potassium Lvl 3.5 3.5 - 5.1 02/08 MH S ugar S [place] ELECTROLYTE BUN 16 7 - 22 02/08 MH [place] S [place] ELECTROLYTE Creatinine 0.81 0.50 - 02/08 MH [place] Lvl 1.40 /2015 [place] ELECTROLYTE Glucose Lvl 114 70 - 99 02/08 MH [place] S 2016 [place] HEMATOLOGY Lymphocytes 24.4 20.0 - 02/08 MH [place] 40.0 /2016 [place] HEMATOLOGY Eosinophils 1.2 0.0 - 4.0 02/08 MH [place] HEMATOLOGY Monocytes 6.2 2.0 - 12.0 02/08 MH [place] /2016 [place] HEMATOLOGY Segs 67.8 45.0 - 02/08 MH [place] 75.0 /2016 [place] HEMATOLOGY Segs-Bands # 8.6 1.5 - 8.1 02/08 MH [place] HEMATOLOGY Basophils 0.4 0.0 - 1.0 02/08 MH [place] HEMATOLOGY Monocytes # 0.8 0.0 - 0.8 02/08 MH [place] HEMATOLOGY Eosinophils # 0.1 0.0 - 0.5 02/08 MH [place] gar [place] HEMATOLOGY Lymphocytes # 3.1 1.0 - 5.5 02/08 MH [place] gar [place] HEMATOLOGY Basophils # 0.0 0.0 - 0.2 / MH [place] HEMATOLOGY WBC 12.7 3.7 - 10.4 02/08 MH [place] HEMATOLOGY RBC 4.69 4.70 - 02/08 [place] 6.10 [place] HEMATOLOGY Hgb 14.4 14.0 - 02/08 [place] 18.0 [place] HEMATOLOGY Hct 43.1 42.0 - 02/08 [place] 54.0 [place] HEMATOLOGY MCV 92.0 80.0 - 02/08 [place] 94.0 [place] HEMATOLOGY RDW 12.8 11.5 - 02/08 [place] 14.5 /2015 [place] HEMATOLOGY MPV 8.6 7.4 - 10.4 02/08 [place] HEMATOLOGY Platelet 131 133 - 450 02/08 [place] HEMATOLOGY MCH 30.6 27.0 - 02/08 MH [place] 31.0 /2015 [place] HEMATOLOGY MCHC 33.3 32.0 - 02/08 [place] 36.0 [place] CHEMISTRY Total CK 85 12 - 191 08/23 Normal [place] CHEMISTRY Troponin-I <0.02 0.00 - 10 Normal [place] 0.40 /2011 [place] CHEMISTRY CK MB Index <0.6 0.0 - 2.5 08/23 Normal [place] CHEMISTRY Lipase Lvl 83 73 - 393 08/23 Normal [place] CHEMISTRY Potassium Lvl 4.0 3.5 - 5.1 08/23 Normal [place] CHEMISTRY Albumin Lvl 3.9 3.5 - 5.0 08/23 Normal [place] CHEMISTRY Alk Phos 114 39 - 136 08/23 Normal [place] CHEMISTRY A/G Ratio 1.0 0.7 - 1.6 08/23 Normal [place] /2011 [place] CHEMISTRY Globulin 3.8 2.0 - 4.0 08/23 Normal [place] CHEMISTRY CO2 24 24 - 32 10 Normal [place] CHEMISTRY Chloride Lvl 107 95 - 109 08/23 Normal [place] CHEMISTRY Total Protein 7.7 6.4 - 8.4 08/23 Normal [place] CHEMISTRY Calcium Lvl 8.6 8.5 - 10.5 08/23 Normal [place] CHEMISTRY ALT 34 0 - 65 08/23 Normal [place] CHEMISTRY AST 12 0 - 37 08/23 Normal [place] CHEMISTRY Bili Total 0.4 0.2 - 1.3 08/23 Normal [place] CHEMISTRY AGAP 16.0 10.0 - 10 Normal [place] 20.0 /2011 [place] CHEMISTRY B/C Ratio 24 6 - 25 08/23 Normal [place] CHEMISTRY Glucose Lvl 99 70 - 99 08/23 Normal <sup>1</sup>I S nterpretive [place] Data: Adult reference range values reflect the clinical guidelines
of the [place] [employer]. CHEMISTRY Sodium Lvl 143 135 - 145 08/23 Normal [place] CHEMISTRY Creatinine 0.7 0.5 - 1.4 08/23 Normal [place] Lvl /2011 [place] CHEMISTRY BUN 17 7 - 22 08/23 Normal [place] CHEMISTRY CK MB <0.5 0.5 - 3.6 08/23 Normal [place] HEMATOLOGY Monocytes # 0.7 0.0 - 0.8 08/23 Normal [place] HEMATOLOGY Basophils # 0.0 0.0 - 0.2 08/23 Normal [place] HEMATOLOGY Eosinophils # 0.2 0.0 - 0.5 08/23 Normal L[place] gar [place] HEMATOLOGY Lymphocytes 30.2 20.0 - 10 Normal [place] 40.0 /2012 [place] HEMATOLOGY Monocytes 5.8 2.0 - 12.0 08/23 Normal [place] HEMATOLOGY Segs 62.4 45.0 - 10 Normal [place] 75.0 /2012 [place] HEMATOLOGY Lymphocytes # 3.8 1.0 - 5.5 08/23 Normal [place] gar [place] HEMATOLOGY Basophils 0.4 0.0 - 1.0 08/23 Normal [place] /2011 [place] HEMATOLOGY Segs-Bands # 7.9 1.5 - 8.1 08/23 Normal [place] ar /2011 [place] HEMATOLOGY Eosinophils 1.2 0.0 - 4.0 08/23 Normal [place] /2011 [place] HEMATOLOGY MPV 8.5 7.4 - 10.4 08/23 Normal [place] /2011 [place] HEMATOLOGY Platelet 156 133 - 450 08/23 Normal [place] /2011 [place] HEMATOLOGY RDW 12.9 11.5 - 10 Normal [place] 14.5 /2011 [place] HEMATOLOGY MCV 94.9 80.0 - 10 HI [place] 94.0 /2011 [place] HEMATOLOGY MCH 32.6 27.0 - 10 HI [place] 31.0 /2011 [place] HEMATOLOGY Hgb 15.1 14.0 - 10 Normal [place] 18.0 /2011 [place] HEMATOLOGY Hct 44.0 42.0 - 08/23 Normal [place] 54.0 /2011 [place] HEMATOLOGY MCHC 34.4 32.0 - 08/23 Normal [place] 36.0 /2011 [place] HEMATOLOGY RBC 4.64 4.70 - 08/23 LOW [place] 6.10 [place] HEMATOLOGY WBC 12.7 3.7 - 10.4 08/23 HI [place] /2011 [place] Pathology Reports No Data Provided for This Section Diagnostic Reports No Data Provided for This Section Consultation Notes No Data Provided for This Section Discharge Summaries No Data Provided for This Section History and Physicals No Data Provided for This Section Vital Signs Vital Sign Value Date Comments Source Respitory Rate 15 02/11/2017 [place] Systolic (mm Hg) 175 02/11/2017 [place] Diastolic (mm Hg) 108 02/11/2017 MH [place] and Diastolic (mm Hg) 112 02/11/2017 MH [place] and Systolic (mm Hg) 182 02/11/2017 MH [place] Respitory Rate 18 02/11/2017 [place] Heart Rate 76 02/11/2017 [place] Weight 89.091 02/11/2017 [place] BMI Calculated 31.7 02/11/2017 MH [place] Systolic (mm Hg) 162 02/11/2017 [facility] [place] Diastolic (mm Hg) 116 02/11/2017 MH [place] and Temperature Oral (F) 97.7 F 02/11/2017 [place] Respitory Rate 20 02/11/2017 [place] Heart Rate 75 02/11/2017 MH [place] Height 167.64 cm 02/11/2017 MH [place] Systolic (mm Hg) 157 02/07/2017 [facility] [place] Diastolic (mm Hg) 102 02/07/2017 [place] Respitory Rate 11 02/07/2017 MH [place] Systolic (mm Hg) 209 02/07/2017 [facility] [place] Diastolic (mm Hg) 120 02/07/2017 MH [place] and Respitory Rate 18 02/07/2017 MH [place] Systolic (mm Hg) 236 02/07/2017 [facility] [place] Diastolic (mm Hg) 125 02/07/2017 MH [place] and Respitory Rate 16 02/07/2017 MH [place] Weight 85.909 02/07/2017 [place] Temperature Oral (F) 97.7 F 02/07/2017 [place] Heart Rate 90 02/07/2017 MH [place] Systolic (mm Hg) 148 02/01/2017 MH [place] Diastolic (mm Hg) 97 02/01/2017 [place] Heart Rate 78 02/01/2017 [place] Respitory Rate 20 02/01/2017 [place] Temperature Oral (F) 98.0 F 02/01/2017 [place] Height 167.64 cm 02/01/2017 [place] BMI Calculated 31.7 02/01/2017 MH [place] Weight 89.091 02/01/2017 [place] Temperature Oral (F) 97.6 F 02/01/2017 [place] Heart Rate 81 02/01/2017 [place] Respitory Rate 20 02/01/2017 [place] Systolic (mm Hg) 166 02/01/2017 [place] Diastolic (mm Hg) 112 02/01/2017 [place] Temperature Oral (F) 97.8 F 01/28/2017 [facility] Systolic (mm Hg) 164 01/28/2017 [facility] Diastolic (mm Hg) 100 01/28/2017 [facility] Respitory Rate 20 01/28/2017 [facility] Systolic (mm Hg) 188 01/28/2017 [facility] Diastolic (mm Hg) 103 01/28/2017 [facility] Respitory Rate 18 01/28/2017 [facility] Systolic (mm Hg) 199 01/28/2017 [facility] Diastolic (mm Hg) 122 01/28/2017 [facility] Respitory Rate 20 01/28/2017 [facility] Weight 100.909 01/28/[facility] Temperature Oral (F) 97.2 F 01/28/2017 [facility] Heart Rate 82 01/28/2017 [facility] Systolic (mm Hg) 142 06/14/2016 [place] Diastolic (mm Hg) 74 06/14/2016 [place] and Respitory Rate 20 06/14/2016 [place] Heart Rate 70 06/14/2016 [place] Temperature Oral (F) 97.8 F 06/14/2016 [place] Heart Rate 68 06/14/2016 [place] Systolic (mm Hg) 131 06/14/2016 [place] Diastolic (mm Hg) 83 06/14/2016 [place] and Respitory Rate 16 06/14/2016 [place] Heart Rate 70 06/14/2016 [place] Respitory Rate 20 06/14/2016 [place] Systolic (mm Hg) 140 06/14/2016 [place] Diastolic (mm Hg) 79 06/14/2016 [place] and Height 165.1 cm 06/14/2016 [place] Temperature Oral (F) 97.6 F 06/14/2016 [place] Weight 93.182 06/14/2016 [place] BMI Calculated 34.19 06/14/2016 [place] Systolic (mm Hg) 144 06/08/2016 [place] Diastolic (mm Hg) 98 06/08/2016 [place] and Respitory Rate 16 06/08/2016 [place] Heart Rate 66 06/08/2016 [place] Temperature Oral (F) 98.0 F 06/08/2016 [place] Heart Rate 65 06/08/2016 [place] Respitory Rate 16 06/08/2016 [place] Systolic (mm Hg) 155 06/08/2016 [place] Diastolic (mm Hg) 91 06/08/2016 [place] and Systolic (mm Hg) 141 06/08/2016 [place] Diastolic (mm Hg) 93 06/08/2016 [place] and Heart Rate 68 06/08/2016 [place] Respitory Rate 16 06/08/2016 [place] Height 167.64 cm 06/08/2016 [place] BMI Calculated 31.54 06/08/2016 MH [place] Weight 88.636 06/08/2016 [place] Temperature Oral (F) 98.3 F 06/08/2016 [facility] [place] Systolic (mm Hg) 142 03/22/2016 [facility] [place] Diastolic (mm Hg) 75 03/22/2016 MH [place] and Heart Rate 65 03/22/2016 MH [place] Respitory Rate 18 03/22/2016 [place] Temperature Oral (F) 97.7 F 03/22/2016 [place] Heart Rate 72 03/22/2016 MH [place] Respitory Rate 18 03/22/2016 MH [place] Systolic (mm Hg) 149 03/22/2016 [facility] [place] Diastolic (mm Hg) 83 03/22/2016 [place] Height 167.64 cm 03/22/2016 [place] BMI Calculated 32.67 03/22/2016 [place] Weight 91.818 03/22/2016 [place] Temperature Oral (F) 97.9 F 03/22/2016 [place] Systolic (mm Hg) 166 03/22/2016 [facility] [place] Diastolic (mm Hg) 98 03/22/2016 [place] and Respitory Rate 18 03/22/2016 MH [place] Heart Rate 74 03/22/2016 [place] Temperature Oral (F) 98.0 F 02/18/2016 [place] Heart Rate 70 02/18/2016 [place] Respitory Rate 18 02/18/2016 MH [place] Systolic (mm Hg) 138 02/18/2016 [facility] [place] Diastolic (mm Hg) 88 02/18/2016 [place] and Respitory Rate 20 02/18/2016 MH [place] Systolic (mm Hg) 152 02/18/2016 [facility] [place] Diastolic (mm Hg) 89 02/18/2016 [place] and Heart Rate 72 02/18/2016 MH [place] Systolic (mm Hg) 196 02/18/2016 [facility] [place] Diastolic (mm Hg) 108 02/18/2016 [place] and Heart Rate 82 02/18/2016 [place] Respitory Rate 18 02/18/2016 [place] Height 165.1 cm 02/18/2016 [place] Temperature Oral (F) 97.6 F 02/18/2016 [place] Weight 90.136 02/18/2016 MH [place] BMI Calculated 33.07 02/18/2016 MH [place] Heart Rate 80 02/09/2016 MH [place] Temperature Oral (F) 98.8 F 02/09/2016 [facility] [place] Respitory Rate 16 02/09/2016 MH [place] Systolic (mm Hg) 154 02/09/2016 [facility] [place] Diastolic (mm Hg) 98 02/09/2016 MH [place] and Heart Rate 78 02/09/2016 MH [place] Respitory Rate 20 02/09/2016 MH [place] Systolic (mm Hg) 148 02/09/2016 [facility] [place] Diastolic (mm Hg) 78 02/09/2016 MH [place] and Heart Rate 80 02/09/2016 MH [place] Respitory Rate 20 02/09/2016 MH [place] Systolic (mm Hg) 150 02/09/2016 [facility] [place] Diastolic (mm Hg) 78 02/09/2016 MH [place] and Weight 93.636 02/09/2016 [place] BMI Calculated 34.35 02/09/2016 [place] Temperature Oral (F) 98.2 F 02/09/2016 [place] Height 165.1 cm 02/09/2016 MH [place] Weight 81.818 08/23/2012 MH [place] Height 167.64 cm 08/23/2012 [place] Encounters Location Location Encounter Encounter Reason Attending [facility] Stat Source Details Type Number For Provider Date Date Visit Emergency [id number] ELIZABET 08/23 08/23 Discharg e [place] NABEEL /2011 d [facility] [place] [id number] Gabe 02/08 02/08 [place] [facility] [place]li /2015 [facility] [place] [id number] Marisol 02/17 02/17 [place] [facility] [place] /2015 [facility] [place] [id number] Jonathan Schuster 03/22 03/22 M H [place] [facility] /2015 [facility] [place] [id number] Gabe 06/08 06/08 [facility] [place] [facility] [place]li /2015 [facility] [place] [id number] Matteo Son 06/14 06/14 MH [place] [facility] /2015 [facility] Emergency [id number] Gerald 01/28 01/28 Gwendolyn Kongann Eliud /2016 [facility] Emergency [id number] Gabe 02/01 02/01 Yocasta Jo Kohli /2016 [facility] [place] [facility] Emergency [id number] Matteo Son 02/07 02/07 [place] /2016 [facility] [facility] [place] [facility] Emergency [id number] Gabe 02/11 02/11 Yocasta Jo Kohli /2016 [facility] [place] Procedures No Data Provided for This Section Assessment and Plan Assessment and Plan Date Source Extracted from:Title: Urology consultation 02/09/2016 Yocasta Schreiber Author: Shorty Gutierrez MD Date: 02/09/16 Impression and Plan Pripism, resolved. I explained priapism in detail and urged the patient to get his HTN under control, as this may be a contributing factor. We discussed pseudofed and cold showers should this occur aga in. [facility] after seeing a physician about his HTN. Thank you for allowing me to participate in this patient's care. Plan of Care No Data Provided for This Section Social History Social History Date Source Social History TypeResponse 02/11/2017 Yocasta Mathew d Smoking Status Current some day smoker; Exposure to Tob acco Smoke None; Cigarette Smoking Last 365 Days No; Reg Smoking Cessation Counseling No Social History TypeResponse 01/28/2017 [facility] Smoking Status Current some day smoker; Exposure to Tob acco Smoke None; Cigarette Smoking Last 365 Days No; Reg Smoking Cessation Counseling No Family History No Data Provided for This Section Advance Directives No Data Provided for This Section Functional Status No Data Provided for This Section
--- OUTSIDE RECORDS SUMMARY | 2020-11-24 15:08 | XMS REPORT | Continuity of Care Document ---
:1980 Author Organization [facility] t Address [address] [place] [address] Care Team Providers Name Role Phone DR WILLIAM Attending Clinician Unavailable Arsalan Pittman Attending Clinician Marco Antonio EASON Attending Clinician Arsalan KING Attending Clinician Unavailable DR CHRISTA Attending Clinician Unavailable PILAR Attending Clinician Unavailable DR CORY Attending Clinician Unavailable DR IRMA Attending Clinician Unavailable Heath Kohli Attending Clinician King Palomo Attending Clinician Miguelito Kline Attending Clinician DR IDALIA Attending Clinician Unavailable Mariely Attending Clinician Maira Noble Attending Clinician DR WILLIAM Admitting Clinician Unavailable Arsalan KING Admitting Clinician Unavailable DR CHRISTA Admitting Clinician Unavailable PILAR Admitting Clinician Unavailable DR CORY Admitting Clinician Unavailable DR IRMA Admitting Clinician Unavailable Miguelito Kline Admitting Clinician DR IDALIA Admitting Clinician Unavailable Problems Condition Condition Condition Status Onset Resolution Last Treating Co mments Source Name Details Category Date Date Treatment Clinician Date OTHER Diagnosis Active 2017-02-11 Mem oria 02-11 13:02:00 l OTHER 00:00: [place] 00 Active 02/11/2017 [facility] [place] PAIN IN Diagnosis Active 2017-02-07 De moria GROIN AREA 3-19 11:48:00 l PAIN IN 00:00: [place] GROIN AREA 00 Active 02/07/2017 [place] PAIN IN Diagnosis Active 2017-02-01 Me moria GROIN 3-13 11:19:00 l PAIN IN 00:00: [place] GROIN 00 Active 02/01/2017 [place] PRIAPISM Diagnosis Active 2017-06-02 M emoria 3 10:32:00 l PRIAPISM 00:00: Heath n 00 Active 01/28/2017 [facility] ABDOMINAL Diagnosis Active 2016-06-14 Memoria PAIN 06-14 11:14:00 l 00:00: [place] ABDOMINAL 00 PAIN Active 06/14/2016 [place] GROIN PAIN Diagnosis Active 2016-06-08 Memoria 06-08 17:01:00 l GROIN 10:00: [place] PAIN 00 Active 06/08/2016 [place] CHEST PAIN Diagnosis Active 2011-112012-08-23 Memoria 0 14:16:00 l CHEST 06:00: [place] PAIN 00 Active 08/23/2012 [place] Hypertensi Problem Active 2017-02-14 M emoria ve 04:12:21 l disorder, [place] systemic Hypertensi arterial ve (disorder) disorder, systemic arterial (disorder) Active Problem 02/14/2017 [facility] [place] Priapism Problem Active 2017-02-14 Mem oria (disorder) 04:12:21 l Priapism Heath n (disorder) Active Problem 02/14/2017 [facility] [place] Priapism, Problem 2017-02-14 2017-02-14 Memoria unspecifie 02-11 04:12:21 04:12:21 l d 05:00: [place] Priapism, 00 unspecifie d 02/11/2017 02/14/2017 [place] Priapism Problem 2017-02-10 2017-02-10 Memoria 3 00:30:06 00:30:06 l Priapism 05:00: Heath n 00 02/07/2017 02/10/2017 [facility] [place] Discharge Problem 2016-06-17 2016-06-17 Memoria Diagnosis: 06-14 00:37:55 00:37:55 l Priapism, 05:00: [place] unspecifie Discharge 00 d Diagnosis: Priapism, unspecifie d 06/14/2016 06/17/2016 [place] Discharge Problem 2016-06-11 2016-06-11 Memoria Diagnosis: 06-08 02:43:56 02:43:56 l Priapism 05:00: [place] Discharge 00 Diagnosis: Priapism 6 06/11/2016 [place] Discharge Problem 2016-06-11 2016-06-11 Memoria Diagnosis: 06-08 02:43:56 02:43:56 l Benign 05:00: [place] hypertensi Discharge 00 on Diagnosis: Benign hypertensi on 06/08/2016 06/11/2016 [facility] [place] Discharge Problem 2016-02-21 2016-02-21 Memoria Diagnosis: 02-17 04:42:59 04:42:59 l HTN 05:00: [place] (hypertens Discharge 00 ion) Diagnosis: HTN (hypertens ion) 02/18/2016 02/21/2016 [place] Allergies, Adverse Reactions, Alerts This patient has no known allergies or adverse reactions. Social History Smoking Status Start Date Stop Date Source Social History 2017-01-28 18:29:05 [facility] Medications Ordered Filled Start Stop Current Ordering Indication Dosage Frequency Signature Comments Components Source Medication Medication Date Date Medication? 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 (Same As: [place]) Sodium 2016- No 1,000 mL, Memori a Chloride 02-11 1,000 l 0.154 18:09: ml/hr, [place] MEQ/ML 00 Infuse Injectable Over: 1 Solution hr, Route: IV, 1,000, Drug form: INJ, ONCE, Priority: STAT, Dosing Weight 89.091 kg, Start date: 02/11/17 13:09:00 CDT, Duration: 1 doses or times, Stop date: 02/11/17 13:09:00 CDT Zofran ODT 2016- No 4 mg, Memori a 02-11 Route: PO, l 18:00: Drug form: [place] 00 TABDIS, ONCE, Dosing Weight 89.091, kg, Priority: STAT, Start date: 02/11/17 13:00:00 CDT, Stop date: 02/11/17 13:00:00 CDT Morphine 2016- No 4 mg, Memoria 02-11 Route: IM, l 18:00: ONCE, Dosing Weight 89.091, kg, Priority: STAT, Start date: 02/11/17 13:00:00 CDT, Stop date: 02/11/17 13:00:00 CDT Acetaminoph 2016- Yes 1 tab, PO, Memoria en 325 MG / -19 Q6H, PRN l Hydrocodone 17:47: Pain Score [place] Bitartrate 00 6-10, do [address] Tablet or operate [[place] heavy 5/325] machinery while taking this medication not to exceed 8 tablets/da y, # 15 tab, 0 Refill(s) Amlodipine Yes 10 mg = 1 Me moria 10 MG Oral 3-19 tab, PO, l Tablet 17:47: Daily, # [place] [Norvasc] 00 30 tab, 0 Refill(s) Labetalol 2016- No 20 mg, Memori a 02-07 Route: l 17:25: IVP, Drug form: INJ, ONCE, Dosing Weight 85.909, kg, Start date: 02/07/17 12:25:00 CDT, Stop date: 02/07/17 12:25:00 CDT Clonidine 2016- No 0.2 mg, Memor ia Hydrochlori 3-19 Route: PO, l de 0.2 MG 16:45: Drug form: He rmann Oral Tablet 00 TAB, ONCE, Dosing Weight 85.909, kg, Priority: STAT, Start date: 02/07/17 11:45:00 CDT, Stop date: 02/07/17 11:45:00 CDT Labetalol 2017-0 No 20 mg, Memori a 3-19 Route: l 16:41: IVP, Drug [place] 00 form: INJ, ONCE, Dosing Weight 85.909, kg, Priority: STAT, Start date: 02/07/17 11:41:00 CDT, Stop date: 02/07/17 11:41:00 CDT Morphine 2017-0 No 4 mg, Memoria - Route: IM, l 16:31: ONCE, [place] Dosing Weight 85.909, kg, Priority: STAT, Start date: 02/07/17 11:31:00 CDT, Stop date: 02/07/17 11:31:00 CDT Morphine 2017-0 No 4 mg, Memoria - Route: IM, l 15:40: ONCE, Dosing Weight 85.909, kg, Priority: STAT, Start date: 02/07/17 10:40:00 CDT, Stop date: 02/07/17 10:40:00 CDT Zofran ODT 2017-0 No 4 mg, Memori a -19 Route: PO, l 15:40: Drug form: [place] 00 TABDIS, ONCE, Dosing Weight 85.909, kg, Priority: STAT, Start date: 02/07/17 10:40:00 CDT, Stop date: 02/07/17 10:40:00 CDT Zofran ODT 2017-0 No 4 mg, Memori a 3-19 Route: PO, l 15:39: Drug form: [place] 00 TABDIS, ONCE, Dosing Weight 85.909, kg, Priority: STAT, Start date: 02/07/17 10:39:00 CDT, Stop date: 02/07/17 10:39:00 CDT Morphine 2017-0 No 4 mg, Memoria 3-19 Route: IM, l 15:39: ONCE, [place] 00 Dosing Weight 85.909, kg, Priority: STAT, Start date: 02/07/17 10:39:00 CDT, Stop date: 02/07/17 10:39:00 CDT Naeem-Synephr 2016-0 No Notes: Chapo ame ine 3-19 Same as: l 15:34: Naeem-Syneph rine Phenylephri 2017-0 No 10 mg, Chapo ame ne 02-07 Route: l 15:26: INJ, [place] Q15Min, Dosing Weight 85.909, kg, PRN, Start date: 02/07/17 10:26:00 CDT, Duration: 30 day, Stop date: 03/09/17 10:25:00 CDT, pripism Lidocaine 2016-0 No Notes: Memori a Hydrochlori -19 (Same as: l de 10 MG/ML 15:21: Xylocaine) 00 Solution Dilaudid 2016-0 No 0.5 mg, Memori a 3-13 Route: IM, l 16:03: ONCE, Dosing Weight 89.091, kg, Priority: STAT, Start date: 02/01/17 11:03:00 CDT, Stop date: 02/01/17 11:03:00 CDT Zofran 2016-0 No 4 mg, Memoria 3-13 Route: IM, l 15:08: Drug form: [place] INJ, ONCE, Dosing Weight 89.091, kg, Priority: STAT, Start date: 02/01/17 10:08:00 CDT, Stop date: 02/01/17 10:08:00 CDT Zofran ODT 2016-0 No Notes: Memor ia 3-13 (Same as: l 15:01: Zofran ODT) Dilaudid 2016-0 No 0.5 mg, Memori a 3-13 Route: IM, l 15:01: ONCE, Dosing Weight 89.091, kg, Priority: STAT, Start date: 02/01/17 10:01:00 CDT, Stop date: 02/01/17 10:01:00 CDT Phenylephri 2016-0 No 1 mg, Memor ia ne - Route: l 14:55: SUB-Q, [place] 00 ONCE, Dosing Weight 89.091, kg, Start date: 02/01/17 9:55:00 CDT, Stop date: 02/01/17 9:55:00 CDT Dilaudid 2016-0 No 1 mg, Memoria 02-01 Route: l 14:54: IVP, ONCE, Dosing Weight 89.091, kg, Priority: STAT, Start date: 02/01/17 9:54:00 CDT, Stop date: 02/01/17 9:54:00 CDT Amlodipine No 10 mg, Memor ia 01-28 Route: PO, l 20:15: Drug form: [place] 00 TAB, ONCE, Dosing Weight 100.909, kg, Start date: 01/28/17 14:15:00 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, Stop 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: 01/28/17 14:15:00 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 Dilaudid 2016- No 0.5 mg, Memori a 01-28 Route: l 19:39: IVP, ONCE, Dosing Weight 100.909, kg, Priority: STAT, Start date: 01/28/17 13:39:00 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, Stop date: 01/28/17 13:39:00 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 phenylephri No 100 Memori a ne - microgram, l 19:09: 1 mL, [place] 00 Route: intraCAVER NOSAL, Drug form: INJ, PRN, PRN Other -See Comment, Start date: 01/28/17 13:09:00 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, Duration: 5 doses or times, Stop date: Limited # of times Lidocaine No Notes: Memori a Hydrochlori 01-28 (Same as: l de 10 MG/ML 18:57: Xylocaine) [place] Injectable 00 Solution phenylephri No 1 mL, Memor ia ne 10 mg/mL 01-28 Route: l injectable 18:55: intraCAVER H ermann solution 00 NOSAL, ONCE, Dosing Weight 100.909, kg, Start date: 01/28/17 12:55:00 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, Stop date: 01/28/17 12:55:00 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 Morphine No Notes: Memoria - (Same l 18:42: as:MORPhin [place] 00 e Sulfate) Ondansetron No Notes: Chapo ame - (Same as: l 18:42: Zofran) [place] 00 MEDICATION WASTE Product Size: 4 mg Product Wasted: _0__ mg Zofran 2015- No 4 mg, Memoria 06-14 Route: l 18:33: IVP, Drug [place] 00 form: INJ, ONCE, Dosing Weight 93.182, kg, Priority: STAT, Start date: 06/14/16 13:33:00 CDT, Stop date: 06/14/16 13:33:00 CDT Dilaudid No 0.5 mg, Memori a 06-14 Route: l 18:33: IVP, ONCE, Dosing Weight 93.182, kg, Priority: STAT, Start date: 06/14/16 13:33:00 CDT, Stop date: 06/14/16 13:33:00 CDT Sodium No 1,000 mL, Memori a Chloride 06-14 1000 l 0.154 18:27: ml/hr, [place] MEQ/ML 00 Infuse Injectable Over: 1 Solution hr, Route: IV, 1,000, Drug form: INJ, ONCE, Priority: STAT, Dosing Weight 93.182 kg, Start date: 06/14/16 13:27:00 CDT, Duration: 1 doses or times, Stop date: 06/14/16 13:27:00 CDT Morphine No 2 mg, Memoria 06-14 Route: IM, l 17:11: Drug form: INJ, ONCE, Dosing Weight 93.182, kg, Priority: STAT, Start date: 06/14/16 12:11:00 CDT, Stop date: 06/14/16 12:11:00 CDT Phenylephri No Notes: Chapo ame ne 06-14 (Same as: l 16:08: Naeem-Syneph rine) Morphine No Notes: Memoria 06-14 (Same l 16:05: as:MORPhin e Sulfate) Zofran ODT No Notes: Memor ia 06-14 (Same as: l 16:05: Zofran ODT) bupivacaine No 1 inj, Chapo ame 0.5% 06-14 Route: l 16:03: SUB-Q, Dosing Weight 93.182, kg, ONCE, STAT, Start date: 06/14/16 11:03:00 CDT, Stop date: 06/14/16 11:03:00 CDT lidocaine No 1 inj, Memori a 2% 06-14 Route: l 16:02: SUB-Q, Dosing Weight 93.182, kg, ONCE, STAT, Start date: 06/14/16 11:02:00 CDT, Stop date: 06/14/16 11:02:00 CDT Acetaminoph Yes 1-2 tab, Me moria en 325 MG / -18 PO, Q4-6H, l Hydrocodone 19:29: PRN Pain, H ermann Bitartrate 00 X 5 day, # 5 MG Oral 15 tab, 0 Tablet Refill(s) [[place] 5/325] Dilaudid No Notes: Memoria -18 (Same as: l 19:08: Dilaudid) Morphine No 4 mg, Memoria 06-08 Route: IM, l 18:42: ONCE, Dosing Weight 88.636, kg, Start date: 06/08/16 13:42:00 CDT, Stop date: 06/08/16 13:42:00 CDT Morphine No 4 mg, Memoria 18 Route: IM, l 18:26: Drug form: INJ, ONCE, Dosing Weight 88.636, kg, Priority: STAT, Start date: 06/08/16 13:26:00 CDT, Stop date: 06/08/16 13:26:00 CDT Phenylephri No Route: Chapo ame ne 18 SUB-Q, l 18:23: ONCE, Dosing Weight 88.636, kg, Start date: 06/08/16 13:23:00 CDT, Stop date: 06/08/16 13:23:00 CDT Marcaine 0 No 10 mL, Memoria HCl 18 Route: l 18:22: SUB-Q, Dosing Weight 88.636, kg, ONCE, Start date: 06/08/16 13:22:00 CDT, Stop date: 06/08/16 13:22:00 CDT Amlodipine No 10 mg, Memor ia 5- Route: PO, l 19:16: Drug form: [place] 00 TAB, ONCE, Dosing Weight 91.818, kg, Start date: 03/22/16 14:16:00 CDT, Stop date: 03/22/16 14:16:00 CDT Morphine No 4 mg, Memoria 5 Route: l 18:33: IVP, ONCE, Dosing Weight 91.818, kg, Priority: STAT, Start date: 03/22/16 13:33:00 CDT, Stop date: 03/22/16 13:33:00 CDT Hydralazine No Notes: Chapo ame 5-01 (Same as: l 17:46: Apresoline ) Push over 5 minutes Morphine No Notes: Memoria 5- (Same l 17:45: as:MORPhin e Sulfate) Ondansetron No Notes: Chapo ame 5-01 (Same as: l 17:45: Zofran) MEDICATION WASTE Product Size: 4 mg Product Wasted: ___ mg Phenylephri No Notes: Chapo ame ne 5-01 Same as: l 17:42: Naeem-Syneph [place] 00 rine Hydrochloro No Notes: Chapo ame thiazide 3-29 (Same as: l 21:44: Hydrodiuri Sandro l) With food. hydrochloro Yes 12.5 mg = M emoria thiazide 3-29 1 tab, PO, l 12.5 mg 21:42: Daily, # Heath n oral tablet 00 30 tab, 0 Refill(s) amLODIPine Yes 10 mg = 1 Me moria 10 mg oral 3-29 tab, PO, l tablet 21:41: Daily, # [place] 00 30 tab, 0 Refill(s) Ondansetron No 4 mg, Memor ia 3- Route: l 20:02: IVP, ONCE, Dosing Weight 90.136, kg, Priority: STAT, Start date: 02/18/16 15:02:00, Stop date: 02/18/16 15:02:00 Hydromorpho No 1 mg, Memor ia ne 02-17 Route: l 20:02: IVP, ONCE, Dosing Weight 90.136, kg, Priority: STAT, Start date: 02/18/16 15:02:00, Stop date: 02/18/16 15:02:00 Phenylephri No Notes: Chapo ame ne 02-17 (Same as: l 19:54: Naeem-Syneph rine) Labetalol No 20 mg, Memori a 02-17 Route: l 19:54: IVP, ONCE, Dosing Weight 90.136, kg, Priority: STAT, Start date: 02/18/16 14:54:00, Stop date: 02/18/16 14:54:00 Saline No Notes: Memoria Flush 0.9% 02-17 (Same as: l 19:54: BD Posiflush) Acetaminoph Yes 1-2 tab, Me moria en 325 MG / 3-20 PO, Q4-6H, l Hydrocodone 21:05: PRN Pain, H ermann Bitartrate 00 X 5 day, # 5 MG Oral 15 tab, 0 Tablet Refill(s) [[place] 5/325] amLODIPine Yes 5 mg = 1 Mem oria 5 mg oral 3-20 tab, PO, l tablet 21:04: Daily, # [place] 00 30 tab, 0 Refill(s) Marcaine No Notes: Memoria HCl 3-20 Preservati l 19:16: ve free. (Same As: Yadira ALVARADO) Terbutaline No Notes: Chapo ame 3-20 DO NOT l 19:14: USE IN HAND RUG BRAIDER AREA (Same As: Poornima) Non-Formul crystal Dilaudid No 1 mg, Memoria 3-20 Route: l 19:06: IVP, ONCE, Dosing Weight 93.636, kg, Priority: STAT, Start date: 02/09/16 14:06:00, Stop date: 02/09/16 14:06:00 Labetalol No 20 mg, Memori a 3-20 Route: l 19:06: IVP, Drug form: INJ, ONCE, Dosing Weight 93.636, kg, Priority: STAT, Start date: 02/09/16 14:06:00, Stop date: 02/09/16 14:06:00 phenylephri No Notes: Chapo ame ne 10 mg/mL 3-20 (Same as: l injectable 18:45: Naeem-Syneph H ermann solution 00 rine) Unknown Yes Refill(s) Memor ia Home 3-20 0 l Medication 17:03: [place] Phenylephri No 1 mg, Memor ia ne 3-20 Route: l 16:15: SUB-Q, ONCE, Dosing Weight 93.636, kg, Start date: 02/09/16 11:15:00, Stop date: 02/09/16 11:15:00 Morphine No 4 mg, Memoria 3-20 Route: l 16:12: IVP, Drug form: INJ, ONCE, Dosing Weight 93.636, kg, Priority: STAT, Start date: 02/09/16 11:12:00, Stop date: 02/09/16 11:12:00 Phenergan 2011-11 Yes Evaristo 25 mg, 1 Mem oria 25 mg oral 0-02 Julián tab, PO, l tablet 18:55: Yeaton Q4H, PRN, Herm ramona 36 15 tab, Nausea, Substituti on Allowed Pepcid 40 2011-11 Yes Evaristo 40 mg, 1 Mem oria mg oral 0-02 Julián tab, PO, l tablet 18:55: Yeaton Daily, 30 Herm ramona 24 tab, Substituti on Allowed morphine 2011-11 No Evaristo 2 mg, Memoria Sulfate 0-02 Julián Route: l 17:25: Yeaton IVP, ONCE, Kelsi Dosing Weight 81.818, kg, Priority: STAT, Start date: 08/23/12 12:25:00, Stop date: 08/23/12 12:25:00 ondansetron 2011-11 No Evaristo 4 mg, Chapo ame 0-02 Julián Route: l 17:25: Yeaton IVP, ONCE, Kelsi Dosing Weight 81.818, kg, Priority: STAT, Start date: 08/23/12 12:25:00, Stop date: 08/23/12 12:25:00 Sodium 2011- No Evaristo 1,000 mL, Memor ia Chloride 0-02 Julián Rate: l 0.9% 17:25: Yeaton 1,000 [place] (Bolus) IV 00 ml/hr, 1000 mL Infuse over: 1 hr, Route: IV, Dosing Weight 81.818 kg, Total Volume: 1,000, Bolus Dose, Priority: STAT, Start date: 08/23/12 12:25:00, Duration: 1 doses or times, Stop date: 08/23/12 13:24:00 Pepcid 2011- No Evaristo 20 mg, Memoria 0-02 Julián Route: l 17:25: Yeaton IVP, ONCE, Kelsi nn 00 Dosing Weight 81.818, kg, Start date: 08/23/12 12:25:00, Stop date: 08/23/12 12:25:00 Vital Signs Vital Name Observation Time Observation Value Comments Source Respitory Rate 2017-02-11 20:06:00 Memori al [place] Systolic (mm Hg) 2017-02-11 20:06:00 Chapo rial [place] Diastolic (mm Hg) 2017-02-11 20:06:00 Mem orial [place] Diastolic (mm Hg) 2017-02-11 18:45:00 Mem orial [place] Systolic (mm Hg) 2017-02-11 18:45:00 Chapo rial [place] Respitory Rate 2017-02-11 18:45:00 Memori al [place] Heart Rate 2017-02-11 18:45:00 [facility] [place] Weight 2017-02-11 17:18:00 [facility] [place] BMI Calculated 2017-02-11 17:18:00 Memori al [place] Systolic (mm Hg) 2017-02-11 17:18:00 Chapo rial [place] Diastolic (mm Hg) 2017-02-11 17:18:00 Mem orial [place] Temperature Oral (F) 2017-02-11 17:18:00 97.7 F [facility] [place] Respitory Rate 2017-02-11 17:18:00 Memori al [place] Heart Rate 2017-02-11 17:18:00 [facility] [place] Height 2017-02-11 17:18:00 167.64 cm [facility] [place] Systolic (mm Hg) 2017-02-07 17:44:00 Chapo rial [place] Diastolic (mm Hg) 2017-02-07 17:44:00 Mem orial [place] Respitory Rate 2017-02-07 17:44:00 Memori al [place] Systolic (mm Hg) 2017-02-07 16:47:00 Chapo rial [place] Diastolic (mm Hg) 2017-02-07 16:47:00 Mem orial [place] Respitory Rate 2017-02-07 16:47:00 Memori al [place] Systolic (mm Hg) 2017-02-07 15:39:00 Chapo rial [place] Diastolic (mm Hg) 2017-02-07 15:39:00 Mem orial [place] Respitory Rate 2017-02-07 15:39:00 Memori al [place] Weight 2017-02-07 15:11:00 [facility] [place] Temperature Oral (F) 2017-02-07 15:11:00 97.7 F [facility] [place] Heart Rate 2017-02-07 15:11:00 [facility] [place] Systolic (mm Hg) 2017-02-01 16:45:00 Chapo rial [place] Diastolic (mm Hg) 2017-02-01 16:45:00 Mem orial [place] Heart Rate 2017-02-01 16:45:00 [facility] [place] Respitory Rate 2017-02-01 16:45:00 Memori al [place] Temperature Oral (F) 2017-02-01 16:45:00 98.0 F [facility] [place] Height 2017-02-01 14:36:00 167.64 cm [facility] [place] BMI Calculated 2017-02-01 14:36:00 Memori al [place] Weight 2017-02-01 14:36:00 [facility] [place] Temperature Oral (F) 2017-02-01 14:36:00 97.6 F [facility] [place] Heart Rate 2017-02-01 14:36:00 [facility] [place] Respitory Rate 2017-02-01 14:36:00 Memori al [place] Systolic (mm Hg) 2017-02-01 14:36:00 Chapo rial [place] Diastolic (mm Hg) 2017-02-01 14:36:00 Mem orial [place] Temperature Oral (F) 2017-01-28 21:45:00 97.8 F [facility] [place] Systolic (mm Hg) 2017-01-28 21:45:00 Chapo rial [place] Diastolic (mm Hg) 2017-01-28 21:45:00 Mem orial [place] Respitory Rate 2017-01-28 21:45:00 Memori al [place] Systolic (mm Hg) 2017-01-28 21:03:00 Chapo rial [place] Diastolic (mm Hg) 2017-01-28 21:03:00 Mem orial [place] Respitory Rate 2017-01-28 20:47:00 Memori al [place] Systolic (mm Hg) 2017-01-28 20:47:00 Chapo rial [place] Diastolic (mm Hg) 2017-01-28 20:47:00 Mem orial [place] Respitory Rate 2017-01-28 19:22:00 Memori al [place] Weight 2017-01-28 18:12:00 [facility] [place] Temperature Oral (F) 2017-01-28 18:12:00 97.2 F [facility] [place] Heart Rate 2017-01-28 18:12:00 [facility] [place] Systolic (mm Hg) 2016-06-14 20:40:00 Chapo rial [place] Diastolic (mm Hg) 2016-06-14 20:40:00 Mem orial [place] Respitory Rate 2016-06-14 20:40:00 Memori al [place] Heart Rate 2016-06-14 20:40:00 [facility] [place] Temperature Oral (F) 2016-06-14 20:40:00 97.8 F [facility] [place] Heart Rate 2016-06-14 19:34:00 [facility] [place] Systolic (mm Hg) 2016-06-14 19:34:00 Chapo rial [place] Diastolic (mm Hg) 2016-06-14 19:34:00 Mem orial [place] Respitory Rate 2016-06-14 19:34:00 Memori al [place] Heart Rate 2016-06-14 18:33:00 [facility] [place] Respitory Rate 2016-06-14 18:33:00 Memori al [place] Systolic (mm Hg) 2016-06-14 18:33:00 Chapo rial [place] Diastolic (mm Hg) 2016-06-14 18:33:00 Mem orial [place] Height 2016-06-14 15:57:00 165.1 cm [facility] [place] Temperature Oral (F) 2016-06-14 15:57:00 97.6 F [facility] [place] Weight 2016-06-14 15:57:00 [facility] [place] BMI Calculated 2016-06-14 15:57:00 Memori al [place] Systolic (mm Hg) 2016-06-08 21:23:00 Chapo rial [place] Diastolic (mm Hg) 2016-06-08 21:23:00 Mem orial [place] Respitory Rate 2016-06-08 21:23:00 Memori al [place] Heart Rate 2016-06-08 21:23:00 [facility] [place] Temperature Oral (F) 2016-06-08 21:23:00 98.0 F [facility] [place] Heart Rate 2016-06-08 20:34:00 [facility] [place] Respitory Rate 2016-06-08 20:34:00 Memori al [place] Systolic (mm Hg) 2016-06-08 20:34:00 Chapo rial [place] Diastolic (mm Hg) 2016-06-08 20:34:00 Mem orial [place] Systolic (mm Hg) 2016-06-08 19:53:00 Chapo rial [place] Diastolic (mm Hg) 2016-06-08 19:53:00 Mem orial [place] Heart Rate 2016-06-08 19:53:00 [facility] [place] Respitory Rate 2016-06-08 19:53:00 Memori al [place] Height 2016-06-08 18:03:00 167.64 cm [facility] [place] BMI Calculated 2016-06-08 18:03:00 [facility]ori al [place] Weight 2016-06-08 18:03:00 [facility] [place] Temperature Oral (F) 2016-06-08 18:03:00 98.3 F [facility] [place] Systolic (mm Hg) 2016-03-22 19:18:00 Chapo rial [place] Diastolic (mm Hg) 2016-03-22 19:18:00 Mem orial [place] Heart Rate 2016-03-22 19:18:00 [facility] [place] Respitory Rate 2016-03-22 19:18:00 Memori al [place] Temperature Oral (F) 2016-03-22 19:18:00 97.7 F [facility] [place] Heart Rate 2016-03-22 18:42:00 [facility] [place] Respitory Rate 2016-03-22 18:42:00 Memori al [place] Systolic (mm Hg) 2016-03-22 18:42:00 Chapo rial [place] Diastolic (mm Hg) 2016-03-22 18:42:00 Mem orial [place] Height 2016-03-22 17:29:00 167.64 cm [facility] [place] BMI Calculated 2016-03-22 17:29:00 Memori al [place] Weight 2016-03-22 17:29:00 [facility] [place] Temperature Oral (F) 2016-03-22 17:29:00 97.9 F [facility] [place] Systolic (mm Hg) 2016-03-22 17:29:00 Chapo rial [place] Diastolic (mm Hg) 2016-03-22 17:29:00 Mem orial [place] Respitory Rate 2016-03-22 17:29:00 Memori al [place] Heart Rate 2016-03-22 17:29:00 [facility] [place] Temperature Oral (F) 2016-02-18 22:17:00 98.0 F [facility] [place] Heart Rate 2016-02-18 22:17:00 [facility] Respitory Rate 2016-02-18 22:17:00 [facility] Systolic (mm Hg) 2016-02-18 22:17:00 [facility] Diastolic (mm Hg) 2016-02-18 22:17:00 [facility] Respitory Rate 2016-02-18 21:08:00 [facility] Systolic (mm Hg) 2016-02-18 21:08:00 [facility] Diastolic (mm Hg) 2016-02-18 21:08:00 [facility] Heart Rate 2016-02-18 21:08:00 [facility] Systolic (mm Hg) 2016-02-18 20:19:00 [facility] Diastolic (mm Hg) 2016-02-18 20:19:00 [facility] Heart Rate 2016-02-18 20:19:00 [facility] Respitory Rate 2016-02-18 20:19:00 [facility] Height 2016-02-18 19:11:00 165.1 cm [facility] Temperature Oral (F) 2016-02-18 19:11:00 97.6 F [facility] Weight 2016-02-18 19:11:00 [facility] BMI Calculated 2016-02-18 19:11:00 [facility] Heart Rate 2016-02-09 22:09:00 [facility] Temperature Oral (F) 2016-02-09 22:09:00 98.8 F [facility] Respitory Rate 2016-02-09 22:09:00 [facility] Systolic (mm Hg) 2016-02-09 22:09:00 [facility] Diastolic (mm Hg) 2016-02-09 22:09:00 [facility] Heart Rate 2016-02-09 21:48:00 [facility] Respitory Rate 2016-02-09 21:48:00 [facility] Systolic (mm Hg) 2016-02-09 21:48:00 [facility] Diastolic (mm Hg) 2016-02-09 21:48:00 [facility] Heart Rate 2016-02-09 20:50:00 [facility] Respitory Rate 2016-02-09 20:50:00 [facility] Systolic (mm Hg) 2016-02-09 20:50:00 [facility] Diastolic (mm Hg) 2016-02-09 20:50:00 [facility] Weight 2016-02-09 15:35:00 [facility] BMI Calculated 2016-02-09 15:35:00 [facility] Temperature Oral (F) 2016-02-09 15:35:00 98.2 F [facility] Height 2016-02-09 15:35:00 165.1 cm [facility] Weight 2012-08-23 16:46:00 [facility] Height 2012-08-23 16:46:00 167.64 cm [facility] Procedures This patient has no known procedures. Encounters Start End Encounter Admission Attending Care Care Encounter Source Date/Time Date/Time Type Type Clinicians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 Interpretation Comments DRUG SCRN (test code URINE DRUG SCREEN = HDOA) This is an unconfirmed screening result and should not be used for non-medical purposes CANNABINOD (test code POSITIVE NEGATIVE A = 88C) AMPHETAMINE (test Negative NEGATIVE code = 84A) BENZODIAZP (test code Negative NEGATIVE = 86A) BARBITURAT (test code Negative NEGATIVE = 85A) OPIATES (test code = Negative NEGATIVE 92B) COCAINE (test code = Negative NEGATIVE 87A) PHENCYCLID (test code Negative NEGATIVE = 66A) METHADONE (test code Negative NEGATIVE = 64A) DOAH (test code = DOAH) *URINE DRUG SCREEN Cut-off values are as follows: Cannabinoids 50 ng/mL Cocaine 300 ng/mL Amphetamines 1000 ng/mL Phencyclidine 25 ng/mL Benzodiazepines 200 ng.mL Methadone 300 ng/mL Barbiturates 200 ng/mL Opiates 2000 ng/mL URINALYSIS WITH [id number] 03:27:00 Test Item Value Reference Range Interpretation Comments COLOR (test code = COLU) YELLOW YELLOW CLARITY (test code = CLA) CLEAR CLEAR GLUCOSE UR (test code = UA GLUCOSE) NEGATIVE NEGATIVE BILI UR (test code = BILE) NEGATIVE NEGATIVE KETONES UR (test code = MANDY) NEGATIVE NEGATIVE SP GRAVITY (test code = SPGR) 1.028 1.005-1.030 PH UR (test code = PH) 6.0 4.5-8.0 PROTEIN UR (test code = PU) 1+ NEGATIVE A UROBIL UR (test code = UROQ) 1.0 EU/dL 0.2-1.0 NITRITE UR (test code = NITRITE) NEGATIVE NEGATIVE BLOOD UR (test code = UA BLOOD) NEGATIVE NEGATIVE LEUK ES UR (test code = LEUK) NEGATIVE NEGATIVE WBC UR (test code = UWBC) 1 /HPF 0-3 RBC UR (test code = URBC) 0 /HPF 0-2 EPITH UR (test code = UEPC) FEW /LPF NONE A BACTERIA UR (test code = UBACT) FEW /HPF NONE A CAST UR (test code = CAST) /LPF NONE CRYSTAL UR (test code = CRYU) / LPF NONE MUCUS UR (test code = MUC) FEW / HPF NONE A AMORPH UR (test code = ALON) / HPF NONE TRICH UR (test code = UTRICH) /HPF NONE YEAST UR (test code = UY) /HPF NONE SPERM UR (test code = USPERM) /HPF NONE THYROID PANEL/SCREEN (TSH)2017-08-24 02:55:00 Test Item Value Reference Range Interpretation Comments TSH (test code = A57) 3.590 uIU/mL 0.358-3.740 CT HEAD W/O [id number] 02:45:50CT HEAD WITHOUT CONTRASTAfter hours services performed at 0225 hours. This exam was performed atngud92 hours of the patient's arrival to [facility].LOCATION: [id number]: Headache.COMPARISON: None.TECHNIQUE: Volumetric CT acquisition of the head without contrast. Axial imageswere reconstructed. One or more of the following radiation dose reductiontechniques was used: automated exposure control, adjustment of the mA and/or kVaccording to patient size, and/or utilization of iterative reconstructiontechnique.FINDINGS:The brain parenchyma is normal in attenuation. There is no acute intracranialhemorrhage. The ventricles, sulci, and cisterns are normal in size andconfiguration. There is no mass effect. No extra-axial fluid is present. Theorbits and globes are normal. There is mild mucosal thickening in the leftmaxillary sinus. No calvarial abnormalities are present.IMPRESSION:No acute intracranial abnormality.BRAIN NATRIURETIC PROTEIN 2017-08-24 02:38:00 Test Item Value Reference Range Interpretation Comments proBNP (test code = PBNP) 26 pg/mL 0-125 TROPONIN [id number] 02:34:00 Test Item Value Reference Range Interpretation Comments TROPONIN I (test code = A84) <0.015 ng/mL 0.000-0.045 CARDIAC [id number] 02:34:00 Test Item Value Reference Range Interpretation Comments TROPONIN I (test code = A84) <0.015 ng/mL 0.000-0.045 CKMB (test code = A49) 1.2 ng/mL <=3.6 CPK (test code = 32A) 122 IU/L 39-308 AMYLASE AND [id number] 02:33:00 Test Item Value Reference Range Interpretation Comments AMYLASE (test code = 10A) 29 U/L 28-100 LIPASE (test code = 60A) 123 IU/L 73-393 COMPREHENSIVE METABOLIC [id number] 02:33:00 Test Item Value Reference Range Interpretation Comments GLUCOSE (test code = 06D) 110 mg/dL 75-100 H SODIUM (test code = 01A) 141 mmol/L 136-145 POTASSIUM (test code = 01B) 3.3 mmol/L 3.6-5.1 L CHLORIDE (test code = 04A) 102 mmol/L 98-107 CO2 (test code = 02A) 26 mmol/L 22-32 ANION GAP (test code = ANG) 16.3 mmol/L BUN (test code = 05D) 24 mg/dL 7-18 H CREATININE (test code = 03E) 1.3 mg/dL 0.7-1.3 BUN/CREA (test code = BCR) 19 12-20 CALCIUM (test code = 09D) 8.5 mg/dL 8.3-9.5 BILI TOTAL (test code = 11A) 0.4 mg/dL 0.2-1.0 PROTEIN (test code = 07D) 8.1 g/dL 6.4-8.2 ALBUMIN (test code = 08D) 4.3 g/dL 3.5-4.8 GLOBULIN (test code = GLB) 3.8 g/dL 1.5-3.8 ALB/GLOB (test code = AGRR) 1.1 1.0-2.6 ALK PHOS (test code = 35A) 151 IU/L 42-121 H AST (test code = 30A) 16 IU/L <=42 ALT (test code = 31A) 40 IU/L <=78 [id number] 02:28:00 Test Item Value Reference Range Interpretation Comments MAGNESIUM (test code = 48A) 2.0 mg/dL 1.8-2.4 PRO TIME AND [id number] 02:27:00 Test Item Value Reference Range Interpretation Comments PT (test code = 11.4 s 9.8-13.6 TT) INR (test code = 1.0 INR) INRH (test code = SUGGESTED INRH) THERAPEUTIC RANGE FOR INR: 2.5 - 3.5 For Patients with Prosthetic Valves or Patients with recurrent Thromboembolic Events 2.0 - 3.0 For Most Other Applications PTT (test code = 30.4 s 20.2-38.0 PTT) PTTH (test code = To monitor the PTTH) effectiveness of heparin, we offer the Anti-Xa (Heparin Assay). It can be used for either unfractionated or LMW Heparin. Order Code is ANTI-XA XR CHEST 1 VIEW [id number] 02:15:38Exam: Chest portable erectLocation: X2Cafwbzp: hypertensionComparison: NoneFindings:The lungs are clear. No infiltrate or effusion is seen. The pulmonaryvasculature is normal. The heart size is normal.The mediastinal silhouette isunremarkable. The bony thorax is intact.Impression:No acute disease.CBC (INCLUDES AUTOMATED DIFFERENTIAL) 2017-08-24 02:15:00 Test Item Value Reference Range Interpretation Comments WBC (test code = WBC) 13.4 10\S\3/uL 4.5-11.0 H RBC (test code = RBC) 4.97 10\S\6/uL 4.30-5.70 HGB (test code = HBG) 15.9 g/dL 14.0-18.0 HCT (test code = HCT) 44.7 % 35.0-46.0 MCV (test code = MCV) 89.9 fL 80.0-94.0 MCH (test code = MCH) 32.0 pg 27.0-31.0 H MCHC (test code = MCHC) 35.6 g/dL 32.0-36.0 RDW (test code = RDW) 12.6 % 11.5-14.5 PLT (test code = PLT) 170 10\S\3/uL 130-400 MPV (test code = MPV) 10.5 fL 9.4-12.4 NEUTROP # (test code = NE#) 7.1 10\S\3/uL 2.0-8.0 LYMPH # (test code = LY#) 5.0 10\S\3/uL 1.2-4.0 H MONOCYTE # (test code = MO#) 1.1 10\S\3/uL 0.0-1.1 EOSINOPH # (test code = EO#) 0.2 10\S\3/uL 0.0-0.7 BASOPHIL # (test code = BA#) 0.1 10\S\3/uL 0.0-0.3 IG # (test code = IG#) 0.04 10\S\3/uL 0.00-0.06 NRBC # (test code = NRBC#) 0.00 10\S\3/uL 0.00-0.01 NEUTROPH % (test code = NE%) 52.9 % 35.0-73.0 LYMPH % (test code = LY%) 37.1 % 20.0-55.0 MONO % (test code = MO%) 8.0 % 2.5-10.0 EOSINOPH % (test code = EO%) 1.1 % 0.0-5.0 BASOPHIL % (test code = BA%) 0.6 % 0.0-2.0 IG % (test code = IG%) 0.3 % 0.0-0.8 NRBC% (test code = NRBC%) 0.0 % 0.0-0.2 MANDIFF (test code = MDIFF) NO NO RBC MORPH (test code = RBCMOR) NORMAL DRUG [id number] 20:19:00Positive *ABN*(02/11/17 3:19 PM)[facility] DRUG [id number] 20:19:00Negative *NA*(02/11/17 3:19 PM)[facility] [id number] 20:19:00Negative *NA*(02/11/17 3:19 PM)[facility] [id number] 20:19:00Negative *NA*(02/11/17 3:19 PM)[facility] CMNGFQ5866-30-43 20:19:00See Note (02/11/17 3:19 PM)[facility] 2017-02-11 20:19:00Negative *NA*(02/11/17 3:19 PM)[facility] 2017-02-11 20:19:00Negative *NA*(02/11/17 3:19 PM)[facility] 2017-02-11 20:19:00Positive *ABN*(02/11/17 3:19 PM)[facility] [id number] 20:19:001.011[facility] YESWR4235-25-74 20:19:001 [facility] VIVON1748-04-27 20:19:00<1[facility] [id number] 20:19:00Negative (02/11/17 3:19 PM)[facility] ABYUP8031-55-01 20:19:00Negative (02/11/17 3:19 PM)[facility] GBFIJ6781-17-23 20:19:00Negative *NA*(02/11/17 3:19 PM)[facility] FJFHQ8227-19-49 20:19:00Negative (02/11/17 3:19 PM)[facility] HBCRO0993-34-39 20:19:007.0[facility] XYGTM3266-36-09 20:19:00 Clear (02/11/17 3:19 PM)[facility] AKJJH1330-65-42 20:19:00Light Yellow *NA*(02/11/17 3:19 PM)[facility] [id number] 18:31:96656 [facility] HPPLT7938-18-86 18:31:54891Ncfyydmr HermannCHEM PANEL 2017-02-11 18:31:0017[facility]ann[facility] ORGYS6132-52-93 18:31:000.97[facility] HCXKH7359-43-82 18:31:52297Noymrqrj HermannCHEM XYDZK3115-52-64 18:31:90571Czlozkfo HermannCHEM DHFGJ2803-51-97 18:31:0029[facility] ZTCYD9866-91-65 18:31:004.2[facility] BUVTI1804-88-89 18:31:007.7 [facility] MGAMI9992-76-35 18:31:0011.2[facility]annHEMATOLOGY 2017-02-11 18:31:0013.0[facility] CjjjgypEWIALZTAVX1664-26-66 18:31:0014.4[facility] JrjyqdvVIRIQJGXJM6484-25-47 18:31:0043.2[facility] LymrxhzLPBPZZNNFL0215-63-33 18:31:004.58[facility] PprwbkpNVYBTIMGUO0967-08-97 18:31:008.6[facility] WDOFCWJBRG7585-78-33 18:31:0094.4[facility] EzxejmyXKZAENNRFQ1730-89-60 18:31:00 14.1[facility] WhfaqseKLUKQSQTKN8382-63-16 18:31:96906Suaiibgr [facility]annHEMATOLOGY 2017-02-11 18:31:00 Test Item Value Reference Range Interpretation Comments MCH (test code = MCH) 31.4 pg 27.0-31.0 [facility] LhpgobfOWPWSKTUFH2653-12-14 18:31:0033.3[facility] 2017-02-11 18:31:000.1[facility] KuuzqkqGSGVDVFNWU0886-51-36 18:31:000.2[facility] ZhzrixaFWSAVMXKOJ7765-46-44 18:31:002.9[facility] DumjsgyGIURUPNTKO2399-57-58 18:31:000.8[facility] WakltrbMSJDRKSWPW1211-45-27 18:31:009.0[facility] YVIHWSJCTG6076-28-10 18:31:000.5[facility] FovmeczZHOLSYPMLT4681-28-47 18:31:00 22.5[facility] ZrsyhzeAFZXNIUXMQ8483-15-94 18:31:006.2[facility] 2017-02-11 18:31:0069.5[facility] YtaeymcXSDSODGYVS0091-87-90 18:31:001.3[facility] FyhlsscWSNBUYJTPI8484-83-79 18:31:00Negative (02/11/17 1:31 PM)[facility] PEXJNCUXEXTT1640-90-23 19:37:0014.8[facility] IzvxdogBVFOUTCBAKFZ5941-91-73 19:37:04058Hgjfqcan SiiggfmJTBBYIVXOBJP3111-78-69 19:37:34227Ntfhcmoa [facility] MCCERMFREEND1903-05-55 19:37:0025[facility] QpnrkitHKXRZFUEIOYZ8990-66-45 19:37:00 3.8[facility] SavmcwgOABSVSTWGYNY2055-73-18 19:37:008.4[facility] XQPZBWQYROYF8158-76-77 19:37:88278Cwgzpkix TdualcmWGSGVUSPRRGA1338-43-21 19:37:000.88[facility] HcjsyakIBMRLIWTSBZP6859-11-30 19:37:008[facility] BEQGMGJDUFCV8366-05-68 19:37:19632Yczzajgn JbzwerqTBVFIPWTSO2191-29-79 19:37:00 6.6[facility] YqtcsqpAWCTXCUCYN0734-41-48 19:37:0061.5[facility]ann[facility] 2017-01-28 19:37:0029.4[facility] AirnxexZXEPPQYPIT0730-44-63 19:37:000.5[facility] XihjdefSCMKPCLSQS7453-83-01 19:37:007.4[facility] XxgebslZNAACSHSED5434-04-41 19:37:003.5[facility] JtaxwxeBZHNCJMOCP0812-28-26 19:37:000.8[facility] KHJKOINVIF2288-12-09 19:37:002.0[facility] MplysdcXUYVAHNQHL2553-05-32 19:37:000.1 [facility] BpwvkhlXTACVAVHXE3134-59-08 19:37:000.2[facility] 2017-01-28 19:37:0093.3[facility] EsebjlqZMZODTLSEK8222-07-13 19:37:0034.0[facility] AvkigbjHHSGYZVOID3534-30-54 19:37:00 Test Item Value Reference Range Interpretation Comments MCH (test code = MCH) 31.7 pg 27.0-31.0 [facility] WfsmnmrDPAUIDXHAV9801-73-30 19:37:0014.1[facility] 2017-01-28 19:37:87941Splskyww EntcjhwWFAHDFRBLM3308-94-72 19:37:008.2[facility] XalexwtOAVHMJSSPR6235-05-06 19:37:0012.0[facility] HurpfoyOAHEHZXHQJ1842-26-28 19:37:0041.8[facility] WbgeoawGAUGZGJKTW1173-33-93 19:37:004.48[facility] OEJYLQQXIZ1564-74-86 19:37:0014.2[facility]annURINALYSIS WITH VKCZY1932-72-96 10:03:00 Test Item Value Reference Range Interpretation Comments COLOR (test code = COLU) YELLOW YELLOW CLARITY (test code = CLA) CLOUDY CLEAR A GLUCOSE UR (test code = UA GLUCOSE) NEGATIVE NEGATIVE BILI UR (test code = BILE) NEGATIVE NEGATIVE KETONES UR (test code = MANDY) NEGATIVE NEGATIVE SP GRAVITY (test code = SPGR) 1.019 1.005-1.030 PH UR (test code = PH) 7.0 4.5-8.0 PROTEIN UR (test code = PU) TRACE NEGATIVE A UROBIL UR (test code = UROQ) 1.0 EU/dL 0.2-1.0 NITRITE UR (test code = NITRITE) NEGATIVE NEGATIVE BLOOD UR (test code = UA BLOOD) NEGATIVE NEGATIVE LEUK ES UR (test code = LEUK) NEGATIVE NEGATIVE WBC UR (test code = UWBC) 0 /HPF 0-3 RBC UR (test code = URBC) 0 /HPF 0-2 EPITH UR (test code = UEPC) NONE /LPF NONE BACTERIA UR (test code = UBACT) NONE /HPF NONE CAST UR (test code = CAST) /LPF NONE CRYSTAL UR (test code = CRYU) / LPF NONE MUCUS UR (test code = MUC) / HPF NONE AMORPH UR (test code = ALON) / HPF NONE TRICH UR (test code = UTRICH) /HPF NONE YEAST UR (test code = UY) /HPF NONE SPERM UR (test code = USPERM) /HPF NONE COMPREHENSIVE METABOLIC [id number] 10:03:00 Test Item Value Reference Range Interpretation Comments GLUCOSE (test code = 06D) 116 mg/dL 75-100 H SODIUM (test code = 01A) 142 mmol/L 136-145 POTASSIUM (test code = 01B) 3.7 mmol/L 3.6-5.1 CHLORIDE (test code = 04A) 107 mmol/L 98-107 CO2 (test code = 02A) 30 mmol/L 22-32 ANION GAP (test code = ANG) 8.7 mmol/L BUN (test code = 05D) 11 mg/dL 7-18 CREATININE (test code = 03E) 0.8 mg/dL 0.7-1.3 BUN/CREA R (test code = BCR) 13 12-20 CALCIUM (test code = 09D) 8.0 mg/dL 8.3-9.5 L BILI TOTAL (test code = 11A) 0.4 mg/dL 0.2-1.0 PROTEIN (test code = 07D) 6.9 g/dL 6.4-8.2 ALBUMIN (test code = 08D) 3.3 g/dL 3.5-4.8 L GLOBULIN (test code = GLB) 3.6 g/dL 1.5-3.8 ALB/GLOB (test code = AGRR) 0.9 1.0-2.6 L ALK PHOS (test code = 35A) 121 IU/L 42-121 AST (test code = 30A) 13 IU/L <=42 ALT (test code = 31A) 22 IU/L <=78 DRUGS OF [id number] 10:00:00 Test Item Value Reference Range Interpretation Comments DRUG SCRN (test code URINE DRUG SCREEN = HDOA) This is an unconfirmed screening result and should not be used for non-medical purposes CANNABINOD (test POSITIVE NEGATIVE A code = 88C) AMPHETHETM (test Negative NEGATIVE code = 84A) BENZODIAZP (test Negative NEGATIVE code = 86A) BARBITURAT (test Negative NEGATIVE code = 85A) OPIATES (test code = Negative NEGATIVE 92B) COCAINE (test code = Negative NEGATIVE 87A) PHENCYCLID (test Negative NEGATIVE code = 66A) METHADONE (test code Negative NEGATIVE = 64A) DOAH (test code = DOAH) URINE DRUG SCREEN Cut-off values are as follows: Cannabinoids 50 ng/mL Cocaine 300 ng/mL Amphetamines 1000 ng/mL Phencyclidine 25 ng/mL Benzodiazepines 200 ng.mL Methadone 300 ng/mL Barbiturates 200 ng/mL Opiates 2000 ng/mL PRO TIME AND [id number] 09:56:00 Test Item Value Reference Range Interpretation Comments PT (test code = 9.1 s 9.8-13.6 L TT) INR (test code = 0.8 INR) INRH (test code = SUGGESTED INRH) THERAPEUTIC RANGE FOR INR: 2.5 - 3.5 For Patients with Prosthetic Valves or Patients with recurrent Thromboembolic Events 2.0 - 3.0 For Most Other Applications PTT (test code = 30.7 s 20.2-38.0 PTT) PTTH (test code = To monitor the PTTH) effectiveness of heparin, we offer the Anti-Xa (Heparin Assay). It can be used for either unfractinated or LMW Heparin. Order Code is ANTI-XA CBC (INCLUDES AUTOMATED DIFFERENTIAL)2017-01-28 09:51:00 Test Item Value Reference Range Interpretation Comments WBC (test code = WBC) 10.4 10\S\3/uL 4.5-11.0 RBC (test code = RBC) 4.47 10\S\6/uL 4.30-5.70 HGB (test code = HBG) 14.3 g/dL 14.0-18.0 HCT (test code = HCT) 41.4 % 35.0-46.0 MCV (test code = MCV) 92.6 fL 80.0-94.0 MCH (test code = MCH) 32.0 pg 27.0-31.0 H MCHC (test code = MCHC) 34.5 g/dL 32.0-36.0 RDW (test code = RDW) 13.7 % 11.5-14.5 PLT (test code = PLT) 131 10\S\3/uL 130-400 MPV (test code = MPV) 10.2 fL 9.4-12.4 NEUTROP # (test code = NE#) 7.1 10\S\3/uL 2.0-8.0 LYMPH # (test code = LY#) 2.3 10\S\3/uL 1.2-4.0 MONOCYTE # (test code = MO#) 0.8 10\S\3/uL 0.0-1.1 EOSINOPH # (test code = EO#) 0.2 10\S\3/uL 0.0-0.7 BASOPHIL # (test code = BA#) 0.0 10\S\3/uL 0.0-0.3 IG # (test code = IG#) 0.04 10\S\3/uL 0.00-0.06 NRBC # (test code = NRBC#) 0.00 10\S\3/uL 0.00-0.01 NEUTROPH % (test code = NE%) 67.9 % 35.0-73.0 LYMPH % (test code = LY%) 22.1 % 20.0-55.0 MONO % (test code = MO%) 7.2 % 2.5-10.0 EOSINOPH % (test code = EO%) 2.1 % 0.0-5.0 BASOPHIL % (test code = BA%) 0.3 % 0.0-2.0 IG % (test code = IG%) 0.4 % 0.0-0.8 NRBC% (test code = NRBC%) 0.0 % 0.0-0.2 MANDIFF (test code = MDIFF) NO NO RBC MORPH (test code = RBCMOR) NORMAL URINE AND [id number] 19:33:00Negative (06/14/16 2:33 PM)[facility] URINE AND BOABH2267-30-08 19:33:00Negative (06/14/16 2:33 PM)[facility] URINE AND EDTGL5980-25-38 19:33:000.2[facility] LOXJD4897-73-44 19:33:00Negative (06/14/16 2:33 PM)[facility] EPUGP3920-54-69 19:33:00Clear (06/14/16 2:33 PM)[facility] CMBVK4175-97-05 19:33:00 Test Item Value Reference Range Interpretation Comments UA Spec Grav (test code = UA Spec 1.020 1 Grav) [facility] EUBCK1418-14-73 19:33:00Negative *NA*(06/14/16 2:33 PM) [facility] JIBWF2573-09-77 19:33:00 Test Item Value Reference Range Interpretation Comments UA pH (test code = UA pH) 5.5 1 5.0-8.0 [facility] KMEZA9594-33-57 19:33:00Yellow *NA*(06/14/16 2:33 PM) [facility] AKTIWN7469-79-14 19:32:00Negative *NA*(06/14/16 2:32 PM) [facility] RKQZOY5953-47-57 19:32:00See Note (06/14/16 2:32 PM)[facility] PWJYQR3597-55-97 19:32:00Negative *NA*(06/14/16 2:32 PM)[facility] AZCGDS7491-43-69 19:32:00Negative *NA*(06/14/16 2:32 PM)[facility] ZZUZJN6306-60-43 19:32:00Negative *NA*(06/14/16 2:32 PM)[facility] IYIIPR8522-72-52 19:32:00Positive *ABN*(06/14/16 2:32 PM)[facility] NMOINF4735-69-38 19:32:00Positive *ABN*(06/14/16 2:32 PM)[facility] AFXHYG9741-77-90 19:32:00Negative *NA*(06/14/16 2:32 PM)[facility] VrgcgtnBURDQBDCDZVT5266-43-41 19:16:46831Jjktbwyt KjenjqyEPSZVEJSKMHC7473-05-41 19:16:0026[facility] IphkoodHEEZLHFXEIUR1901-39-91 19:16:007.7[facility] MUXRUCAUJPTY1661-06-16 19:16:09351Spddfggz HfesldqHIXSUNIYUUNP3205-19-92 19:16:003.7[facility] WfxpmbtXZAFFJTWJFWF8891-48-32 19:16:000.74[facility] XRFXLULZEUUZ4074-79-20 19:16:64766Qlvtoapn IwfudluISVNECBWERDJ5440-87-02 19:16:0097[facility] JbfehjqMEZUQTJENZDK5425-36-39 19:16:0012[facility] RKQIPGTUERSE5985-23-92 19:16:0011.7[facility] GrbatgcMGQDJBAFLF5785-38-86 19:16:00 1.1[facility] SsfpcniHHEWWZEGEE2525-42-89 19:16:005.6[facility] 2016-06-14 19:16:0069.2[facility] TsngvocYJZMZLAZCH4162-23-96 19:16:0023.7[facility] VpuufziPSUBDYDQSZ1973-78-93 19:16:000.4[facility] TwolfqvYRHZAMKXEW6905-00-56 19:16:000.6[facility] XqotegrSASIJMAYGS4735-77-77 19:16:008.0[facility] GVLLPPFOOQ2474-87-90 19:16:002.7[facility] QdigrlaZPLWVWBLGS2745-16-06 19:16:000.0 [facility] RfecrhoWFEBNLZVYH1463-06-88 19:16:000.1[facility] 2016-06-14 19:16:0013.9[facility] ZppidguIUEHTGGLUR1386-84-51 19:16:0093.7[facility] PsqjrdoNEOGWDFRXF4076-20-29 19:16:41100Wgmhdtje TxejfxwRBIZKASTVL1706-10-39 19:16:008.2[facility] SdctupeGOBAJOSJFE4508-89-20 19:16:00 Test Item Value Reference Range Interpretation Comments MCH (test code = MCH) 31.3 pg 27.0-31.0 [facility] DhfvvskPEFVOVOQUM6003-32-36 19:16:0033.4[facility]annHEMATOLOGY 2016-06-14 19:16:0013.5[facility] GlxxjadUYONLFQSGD5484-63-84 19:16:004.30[facility] DeotnmuVGOHCDRWDS7095-09-19 19:16:0011.6[facility] DpcwwkvXMTPTOGYLW2377-88-43 19:16:0040.3[facility] HermannCHEM KTOCM7909-64-44 18:35:71908Mycvqeqa HermannCHEM EROKV4553-13-05 18:35:62518Adssoils HermannCHEM XKIEY3592-29-50 18:35:000.80 [facility]annCHEM ANJJR6638-08-13 18:35:0013[facility]annCHEM PANEL 2016-03-22 18:35:38861Yjpjsghk HermannCHEM ALIRB3361-20-25 18:35:008.1[facility] HermannCHEM IVXEM6912-43-72 18:35:0026[facility] HermannCHEM ORYQX0446-80-64 18:35:79939Rwujqpwa HermannCHEM ZODEY9156-57-87 18:35:003.7[facility]annCHEM FODUI1654-63-41 18:35:0010.7[facility] ZmbinxsQOSLFEOEAE1447-17-30 18:35:00 Test Item Value Reference Range Interpretation Comments MCH (test code = MCH) 31.2 pg 27.0-31.0 [facility] NwhokwuUINNMUODFY5319-72-95 18:35:0092.1[facility]annHEMATOLOGY 2016-03-22 18:35:0041.0[facility] NcdosjdLRRVEAQBWZ8221-75-61 18:35:0013.9[facility] FdiwdwyFPJMBDOJKI8256-55-71 18:35:0012.8[facility] XhuzmjxFOSNELJVGM8719-40-35 18:35:004.45[facility] IvafosaJXZMMYOSCB0359-25-65 18:35:88986Yrygdadk [place] VFAVEYNSAF4527-89-35 18:35:0013.8[facility] PsmkbihRGWNKGRQEX2060-94-56 18:35:00 33.9[facility] LtfxhaoVPUORFFBAF4800-70-86 18:35:008.7[facility]annHEMATOLOGY 2016-03-22 18:35:0067.1[facility] PrbwaxuPJUXBGHZZY9381-05-42 18:35:0023.6[facility] StmhkejDJCHDXMAJI5116-00-17 18:35:000.0[facility] TzjrlesWHPYDHVFPI5777-01-02 18:35:001.0[facility] QstknpiVZUENLTAYW8428-18-96 18:35:000.2[facility] OSQIMBXDUJ5646-88-51 18:35:008.6[facility] AprucwaNTWITLOMVY0169-64-33 18:35:003.0 [facility] XhzogjeNCSAIDIMXD1013-44-84 18:35:007.6[facility]annHEMATOLOGY 2016-03-22 18:35:001.4[facility] FbafppvGWGXOZGWAX9141-19-25 18:35:000.3[facility] HermannCARDIAC IXGZICN2570-71-47 20:19:00<0.02[facility] HermannCARDIAC ENZYMES 2016-02-18 20:19:000.7[facility] HermannCARDIAC VUAVHGO6278-19-86 20:19:61814 [facility]annCARDIAC PBNSVWC8525-04-56 20:19:000.6[facility] HermannCHEM PANEL 2016-02-18 20:19:49344Zpryqybu HermannCHEM NUKPL7523-52-23 20:19:0017[facility] HermannCHEM LMCYQ4175-20-06 20:19:004.2[facility] HermannCHEM NJCWQ9213-59-79 20:19:001.0[facility]annCHEM ATGMI7020-43-92 20:19:0011.7[facility]annCHEM DRJQG4867-43-83 20:19:0022[facility]annCHEM AKHQN0361-59-34 20:19:000.4 [facility]annCHEM RGPTJ0459-26-86 20:19:16451Zxgbwhef HermannCHEM PANEL 2016-02-18 20:19:000.95[facility] HermannCHEM LNBLR1516-58-97 20:19:42227Ibxippvt HermannCHEM ASDYY7396-05-53 20:19:0016[facility] HermannCHEM MUVOS8446-72-24 20:19:43025Lroyvehq HermannCHEM XSUDB9906-85-82 20:19:004.1[facility] HermannCHEM UVEBX5057-42-13 20:19:008.3[facility] HermannCHEM FRSLX1077-88-21 20:19:0051 [facility]annCHEM RHPMN8160-99-28 20:19:008.5[facility] HermannCHEM PANEL 2016-02-18 20:19:82051Dxedzkuy HermannCHEM VYQSU5812-22-10 20:19:003.7[facility] HermannCHEM IIQZM9474-52-50 20:19:0028[facility] RpdjrftCBAWGDOLCV9881-47-65 20:19:0033.6[facility] PmftzjnKUHOWDFAUQ8422-28-76 20:19:08568Mhywdawr Sandro PXNTFHZJSM2892-16-97 20:19:008.4[facility] UcixwfjEQRSWACTWR8869-42-48 20:19:00 13.2[facility] LnztfulITIGUIQZOL5173-45-04 20:19:0011.9[facility]annHEMATOLOGY 2016-02-18 20:19:004.84[facility] TebmvhfARIQIOUSRL9243-05-60 20:19:0014.9[facility] NfximcnOQDMXARVXC9750-91-36 20:19:00 Test Item Value Reference Range Interpretation Comments MCH (test code = MCH) 30.9 pg 27.0-31.0 [facility] PlekaikWVAPCZJLUH2304-02-44 20:19:0044.5[facility] HermannHEMATOLOGY 2016-02-18 20:19:0091.9[facility] PbbluepSZRXUVHEVM7541-02-02 20:19:00 Test Item Value Reference Range Interpretation Comments PT (test code = PT) 12.2 s 12.0-14.7 [facility] IssbourLJNUHFEEHY9288-97-64 20:19:000.88[facility]annHEMATOLOGY 2016-02-18 20:19:00 Test Item Value Reference Range Interpretation Comments PTT (test code = PTT) 30.2 s 22.9-35.8 [facility] RbpqavzXFGUYYYTDO4826-41-29 20:19:000.5[facility]annHEMATOLOGY 2016-02-18 20:19:000.1[facility] EjdzanwSNZUJVBQGR0316-50-49 20:19:002.5[facility] EurojfmFYCPWYYRDY6035-33-38 20:19:000.0[facility] MticvgxOHAWJUPWUM1465-44-78 20:19:004.4[facility] AmoiyfyMNUSHNCJEX5376-30-29 20:19:0021.1[facility] [place] JUMAFEMZHV0764-25-59 20:19:008.7[facility] LsfumhuZTRZUAETOF1882-70-27 20:19:000.4 [facility] AkeyuwdSNEQGHYCNE6517-55-01 20:19:000.9[facility]annHEMATOLOGY 2016-02-18 20:19:0073.2[facility] WxzmklfAXONYDXVNW2466-41-57 20:19:00Negative (02/18/16 3:19 PM)[facility]annDR[facility] QMLHHW4061-59-99 20:07:00See Note (02/09/16 3:07 PM)[facility]annDR[facility] LCPGER7746-58-08 20:07:00Positive *ABN*(02/09/16 3:07 PM)[facility]annDR[facility] USGIUK4269-80-47 20:07:00Negative *NA*(02/09/16 3:07 PM)[facility] YXBRZT5273-58-06 20:07:00Positive *ABN*(02/09/16 3:07 PM) [facility] [id number] 20:07:00Negative *NA*(02/09/16 3:07 PM) [facility] [id number] 20:07:00Negative *NA*(02/09/16 3:07 PM) [facility] OTZMRO1067-51-32 20:07:00Negative *NA*(02/09/16 3:07 PM) [facility] [id number] 20:07:00Negative *NA*(02/09/16 3:07 PM) [facility] HmgcdxbMQOCXMRGSDKO6259-96-27 16:46:0010.5[facility]ann[facility]OLYTES 2016-02-09 16:46:87220Szsfiect PuroibiQAGWWALIQIBY9597-42-53 16:46:008.1[facility] XesahtkLCWOMJHHPIKS4855-58-86 16:46:33390Ynhpqpqe DhedjyuCRRJHROBNMSU0683-55-17 16:46:0028[facility] BtlhkriUYELTAEYOCQE1574-87-86 16:46:78824Bfzqhkcz [place] GLMRTTQFLBCW8168-30-80 16:46:003.5[facility] IkyqbsyXDBVDBCRLQST9584-02-98 16:46:0016[facility] GdwdbnrRWKVEVFOPRYQ1011-84-00 16:46:000.81[facility] XLKWIMVATRQB2196-54-84 16:46:66268Llkcwhfp UrctlngFUWPFRKXTB0215-64-74 16:46:00 24.4[facility] SzukomxJZODQRYTCY0666-94-58 16:46:001.2[facility]ann[facility]MATOLOGY 2016-02-09 16:46:006.2[facility] KefgbrrONZDXSOQVA0051-40-24 16:46:0067.8[facility] KcdizjnPXXDBNZHPQ0091-07-32 16:46:008.6[facility] BrwqnwgZWMMGMZTZY3476-43-51 16:46:000.4[facility] LnubbfwYDFBOOATGN9700-74-54 16:46:000.8[facility] TKRHTGKHCT9950-13-17 16:46:000.1[facility] FdhbcgvMYTFRFAQWJ1087-98-06 16:46:003.1 [facility] WmjfznoHZHQOJGJQN6170-61-51 16:46:000.0[facility]annHEMATOLOGY 2016-02-09 16:46:0012.7[facility] SobvwlfJTTLHKRADY7918-14-74 16:46:004.69[facility] HqlcmjfGAHCELQQDI2770-48-87 16:46:0014.4[facility] EqpljciKFPBCOISLD9307-34-80 16:46:0043.1[facility] RuocwdoEANFLVWRQR6821-99-18 16:46:0092.0[facility] CBPJLVXZKQ1600-82-82 16:46:0012.8[facility] QudkqpaYZELRVNBJH1347-13-78 16:46:00 8.6[facility] EtfcgqcTELLYCJKQZ5070-46-75 16:46:86628Utyqnxxh HermannHEMATOLOGY 2016-02-09 16:46:00 Test Item Value Reference Range Interpretation Comments MCH (test code = MCH) 30.6 pg 27.0-31.0 [facility] PaqynizEPCXZGQWDH9550-56-38 16:46:0033.3[facility]annCHEMISTRY 2012-08-23 17:00:0085[facility] PopyvwkWSSPOYVKH6791-28-26 17:00:00<0.02 [facility] UgttwczIYXCJRRJA9366-40-39 17:00:00<0.6[facility] HermannCHEMISTRY 2012-08-23 17:00:0083[facility] YguphkmGBKWIDQVK7985-61-63 17:00:004.0[facility] YlyldveOUYHTHDFP0792-67-50 17:00:003.9[facility] ZikvlyeHWZSJLLDK0001-41-88 17:00:36526Gbhqwlts XkvyfnsEZZVBNNJK7932-74-87 17:00:001.0[facility] VHPDUFAHK1517-85-27 17:00:003.8[facility] DaoyplrRLLTXUOEA6343-93-05 17:00:0024 [facility] CvisggvFPTTGVLHC3104-18-10 17:00:58921Hdwcfawx HermannCHEMISTRY 2012-08-23 17:00:007.7[facility] GukibcmZPVTIUYRN6977-87-28 17:00:008.6[facility] OkwrsukACMYHKBVT4098-43-23 17:00:0034[facility] BiljjioIQPRSPZSE4245-62-67 17:00:0012[facility] GfhpdidGFJRLTEVF4568-48-77 17:00:000.4[facility] ARVJPWIJB5198-00-70 17:00:0016.0[facility] TafheyoVFMAFTZLC1296-44-05 17:00:0024 [facility] BvlstllSZILYXYRK4693-93-36 17:00:0099[facility]annCHEMISTRY 2012-08-23 17:00:32274Ybmvyube WmzlafmVBNJMFZBH8988-63-80 17:00:000.7[facility] TmifaecFSLHDOJTZ7489-83-46 17:00:0017[facility] BttqbjjIMIMKKBYQ8033-99-57 17:00:00<0.5[facility] KihebkgAIFKJOVCRY8146-82-33 17:00:000.7[facility] CCDRZMNNLA6456-77-31 17:00:000.0[facility] EtqgjqtIUVAVWVFMR2415-61-55 17:00:000.2 [facility] RaqqazfMSKRPLWCRT0877-52-08 17:00:0030.2[facility]annHEMATOLOGY 2012-08-23 17:00:005.8[facility] AmoiiunSCUDNDOTAP7948-97-49 17:00:0062.4[facility] CongewuVHYXCVYDCP6144-45-51 17:00:003.8[facility] AcdvukeFCWZAJKTXZ8608-24-73 17:00:000.4[facility] XqpmpgrEQJCVQOOZP4848-63-78 17:00:007.9[facility] [place] LWMARHLYNG2179-41-08 17:00:001.2[facility] WawrlwuVUNJIOLAGN1549-33-97 17:00:008.5 [facility] PaojvulOFJSFLVZIG0168-50-95 17:00:33261Ijbiujpp HermannHEMATOLOGY 2012-08-23 17:00:0012.9[facility] KqdohepVFMGFBKKGM2164-74-59 17:00:0094.9[facility] JjbgxqvGBLTMDSBXO9768-08-15 17:00:00 Test Item Value Reference Range Interpretation Comments MCH (test code = MCH) 32.6 pg 27.0-31.0 H [facility] VymtoyuVHWZHVASFF6413-46-78 17:00:0015.1[facility]annHEMATOLOGY 2012-08-23 17:00:0044.0[facility] GhcbfhhUQBURHAQYO7975-77-87 17:00:0034.4[facility] GtoxfzjTSGNWBKBWJ8166-84-29 17:00:004.64[facility] CokiftlCEGFBTBKGV6829-69-17 17:00:0012.7[facility] [place]
[2020-11-24] MEDS ORDERED: Phenylephrine HCl 10 MG/ML 1 ML VIAL ONE ×2 (15:35→17:00)
[2020-11-24] MEDS ORDERED: TERBUTALINE SULF 1 MG/1ML ONE ×3 (15:41→16:54)
[2020-11-24] MEDS ORDERED: MORPHINE 4 MG/ML SYR ONE (15:41)
[2020-11-24] MEDS ORDERED: ONDANSETRON 4 MG/2 ML VIAL ONE (15:41)
[2020-11-24] MEDS ORDERED: NA CHLORIDE 0.9% 1,000 ML ONE ×2 (15:42→16:54)
[2020-11-24 15:52] LABS: Absolute Lymphocytes (CBC) 3.1 K/uL (0.7-4.9); Basophils % 0.4 % (0-1.3); Hematocrit 45.6 % (39.6-49.0); Lymphocytes % 22.1 % (15.3-44.8); MPV 9.3 fL (7.6-11.3); RBC Red Blood Cell Count 4.84 M/uL (4.33-5.43)
[2020-11-24] MEDS ORDERED: PSEUDOEPHEDRINE 30 MG TAB PO ONE (16:00)
[2020-11-24 16:09] LABS: Albumin 3.7 g/dL (3.4-5.0); Bilirubin Total 0.5 mg/dL (0.2-1.0); Potassium 3.9 mmol/L (3.5-5.1); Protein, Total 7.5 g/dL (6.4-8.2)
[2020-11-24] MEDS ORDERED: CEFTRIAXONE/SWI 1gm 1 GM/10 ML SYR ONE (17:34)
[2020-11-24] MEDS ORDERED: ASPIRIN 81 MG CHEWABLE TABLET ONE (17:45)
[2020-11-24 18:41] LABS: Barbiturates NEGATIVE (NEGATIVE); Benzodiazepines NEGATIVE (NEGATIVE); Cocaine NEGATIVE (NEGATIVE); METHAMPHETAM POSITIVE (NEGATIVE); Methadone NEGATIVE (NEGATIVE); Opiates POSITIVE (NEGATIVE); Phencyclidine NEGATIVE (NEGATIVE); THC Cannibis POSITIVE (NEGATIVE)
[2020-11-24 18:41] LABS: Urine Blood NEGATIVE (NEG); Urine Glucose NEGATIVE (NEG); Urine Protein NEGATIVE (NEG)
--- NOTE | 2020-11-24 18:43 | ER ---
Nurse's Notes [facility] Name: Williams Avila Jr Age: 40 yrs Sex: Male : 1980 Arrival Date: 11/24/2020 Time: 15:03 Bed 24 Private MD: Diagnosis: Chest pain, unspecified;Priapism;Abuse of other non-psychoactive substances Presentation: 11/24 15:21 Coronavirus screen: Client denies travel out of the [place] in the last 14 days. At this ll1 time, the client does not indicate any symptoms associated with coronavirus-19. Ebola Screen: Patient denies travel to an Ebola-affected area in the 21 days before illness onset. Initial Sepsis Screen: Does the patient meet any 2 criteria? No. Patient's initial sepsis screen is negative. Risk Assessment: Do you want to hurt yourself or someone else? Patient reports no desire to harm self or others. Onset of symptoms was November 24, 2020. 15:21 Method Of Arrival: Wheelchair ll1 15:21 Acuity: RADHA 2 ll1 15:38 Chief complaint: Patient states: Erection since 11 am when awaking, unknown length of ll1 time of erection while sleeping. Denies drug use. Initial Sepsis Screen: Does the patient have a suspected source of infection? No. Patient's initial sepsis screen is negative. Triage Assessment: 16:12 General: Appears uncomfortable, Behavior is calm, cooperative, appropriate for age. ll1 Pain: Complains of pain in penile Pain currently is 10 out of 10 on a pain scale. Quality of pain is described as aching, throbbing. Neuro: No deficits noted. Cardiovascular: No deficits noted. Respiratory: No deficits noted. : Reports erection since awakening at 1100. Historical: - Allergies: 15:21 No Known Allergies; ll1 - PMHx: 15:21 None; ll1 - PSHx: 15:21 None; ll1 - Immunization history:: Flu vaccine is not up to date. - Social history:: Smoking status: Patient denies any tobacco usage or history of. - Family history:: not pertinent. Screenin:11 Abuse screen: Denies threats or abuse. Nutritional screening: No deficits noted. ll1 Tuberculosis screening: No symptoms or risk factors identified. Fall Risk IV access (20 points). Ambulatory Aid- Crutches/Cane/Walker (15 pts). Total Kohli Fall Scale indicates Low Risk Score (25-44 pts). Fall prevention measures have been instituted. Side Rails Up X 2 Placed close to Nursing Station Frequent Obs/Assesments occuring Family Present and informed to notify staff if they need to leave bedside As available Patient and Family Educated on Fall Prevention Program and strategies. Assessment: 15:12 Reassessment: see initial triage assessment. ll1 15:21 General: Appears uncomfortable, Behavior is calm, cooperative, appropriate for age. ll1 Pain: Complains of pain in penis. 16:20 Reassessment: No changes from previously documented assessment. Patient and/or family ll1 updated on plan of care and expected duration. Pain level reassessed. Patient is alert, oriented x 3, equal unlabored respirations, skin warm/dry/pink. 17:20 Reassessment: No changes from previously documented assessment. Patient and/or family ll1 updated on plan of care and expected duration. Pain level reassessed. Patient is alert, oriented x 3, equal unlabored respirations, skin warm/dry/pink. 18:16 Reassessment: No changes from previously documented assessment. Patient and/or family ll1 updated on plan of care and expected duration. Pain level reassessed. Patient is alert, oriented x 3, equal unlabored respirations, skin warm/dry/pink. erection gone now Patient denies pain at this time. Patient states feeling better. Vital Signs: 15:38 BP 143 / 105; Pulse 80; Resp 18; Temp 97.9; Pulse Ox 98% ; Pain 10/10; ll1 16:10 BP 152 / 77; Pulse 80; Resp 17; Pulse Ox 99% on 2.5 lpm NC; ll1 18:14 BP 141 / 82; Pulse 66; Resp 17; Pulse Ox 99% ; Pain 0/10; ll1 ED Course: 15:03 Patient arrived in ED. rg4 15:11 Mervin Garrison MD is Attending Physician. leobardo 15:20 Arm band placed on Patient placed in an exam room, on a stretcher. ll1 15:21 Inserted saline lock: 20 gauge in right antecubital area, using aseptic technique. ll1 Blood collected. 15:22 Triage completed. ll1 15:23 Shavon Lee, RN is Primary Nurse. ll1 16:12 Patient has correct armband on for positive identification. Bed in low position. Call ll1 light in reach. Side rails up X2. Pulse ox on. NIBP on. 18:42 Serge Bates MD is Referral Physician. leobardo 18:42 Branden Wilks MD is Referral Physician. leobardo 19:02 No provider procedures requiring assistance completed. IV discontinued, intact, ss bleeding controlled, No redness/swelling at site. Pressure dressing applied. Administered Medications: 15:33 Drug: NS 0.9% 1000 ml Route: IV; Rate: 1 bolus; Site: right antecubital; leobardo 16:51 Follow up: Response: No adverse reaction; RASS: Alert and Calm (0); IV Status: ll1 Completed infusion; IV Intake: 1000ml 15:33 Drug: morphine 4 mg Route: IVP; Site: right antecubital; leobardo 16:52 Follow up: Response: No adverse reaction; RASS: Alert and Calm (0) ll1 15:33 Drug: Zofran (Ondansetron) 4 mg Route: IVP; Site: right antecubital; leobardo 16:52 Follow up: Response: No adverse reaction ll1 15:37 Drug: Terbutaline 0.5 mg Route: Sub-Q; Site: right lower abdomen; ll1 16:52 Follow up: Response: No adverse reaction; RASS: Alert and Calm (0) ll1 15:59 Drug: Pseudoephedrine 120 mg Route: PO; ll1 16:52 Follow up: Response: No adverse reaction; RASS: Alert and Calm (0) ll1 15:59 Drug: Terbutaline 0.5 mg Route: Sub-Q; Site: left lower abdomen; ll1 16:52 Follow up: Response: No adverse reaction ll1 16:50 Drug: Terbutaline 0.5 mg Route: Sub-Q; Site: right upper abdomen; ll1 16:53 Follow up: Response: No adverse reaction ll1 16:51 Drug: morphine 4 mg Route: IVP; Site: right antecubital; ll1 17:02 Follow up: Response: No adverse reaction; Pain is decreased; RASS: Alert and Calm (0) ll1 16:51 Drug: Zofran (Ondansetron) 4 mg Route: IVP; Site: right antecubital; ll1 17:02 Follow up: Response: No adverse reaction; RASS: Alert and Calm (0) ll1 17:00 Drug: NS 0.9% 1000 ml Route: IV; Rate: 125 ml/hr; Site: right antecubital; ll1 17:20 Drug: Rocephin 1 grams Route: IV; Rate: per protocol; Site: right antecubital; ll1 18:13 Follow up: Response: No adverse reaction; RASS: Alert and Calm (0); IV Status: ll1 Completed infusion; IV Intake: 20ml 17:36 Drug: Aspirin Chewable Tablet 162 mg Route: PO; ll1 18:14 Follow up: Response: No adverse reaction; RASS: Alert and Calm (0) ll1 Intake: 16:51 IV: 1000ml; Total: 1000ml. ll1 18:13 IV: 20ml; Total: 1020ml. ll1 Outcome: 18:42 Discharge ordered by . leobardo 19:02 Discharged to home ambulatory. 19:02 Condition: good 19:02 Discharge instructions given to patient, family, Instructed on discharge instructions, follow up and referral plans. medication usage, Demonstrated understanding of instructions, follow-up care, medications, Prescriptions given X 1. 19:04 Patient left the ED. ss Signatures: Mervin Garrison MD MD cha Smirch, Shelby, RN RN Merissa Otoole rg4 Shavon Lee RN RN 1
--- NOTE | 2020-11-24 18:43 | EDPHYS ---
Physician Documentation [facility] Name: Williams Avila Jr Age: 40 yrs Sex: Male : 1980 Arrival Date: 11/24/2020 Time: 15:03 Bed 24 Private MD: ED Physician Mervin Garrison HPI: 11/24 15:42 This 40 yrs old Male presents to ER via Wheelchair with complaints of leobardo Testicular Pain. 15:42 The patient presents with tenderness, that is moderate, penis, priapism, awoke this leobardo way. Onset: The symptoms/episode began/occurred this morning. Modifying factors: The symptoms are alleviated by nothing, the symptoms are aggravated by nothing. Associated signs and symptoms: The patient has no apparent associated signs or symptoms. Severity of symptoms: At their worst the symptoms were moderate, in the emergency department the symptoms are unchanged. The patient has not experienced similar symptoms in the past. Historical: - Allergies: 15:21 No Known Allergies; ll1 - PMHx: 15:21 None; ll1 - PSHx: 15:21 None; ll1 - Immunization history:: Flu vaccine is not up to date. - Social history:: Smoking status: Patient denies any tobacco usage or history of. - Family history:: not pertinent. ROS: 15:42 Constitutional: Negative for fever, chills, and weight loss, Eyes: Negative for injury, leobardo pain, redness, and discharge, ENT: Negative for injury, pain, and discharge, Neck: Negative for injury, pain, and swelling, Cardiovascular: Negative for chest pain, palpitations, and edema, Respiratory: Negative for shortness of breath, cough, wheezing, and pleuritic chest pain, Abdomen/GI: Negative for abdominal pain, nausea, vomiting, diarrhea, and constipation, Back: Negative for injury and pain, MS/Extremity: Negative for injury and deformity, Skin: Negative for injury, rash, and discoloration, Neuro: Negative for headache, weakness, numbness, tingling, and seizure, Psych: Negative for depression, anxiety, suicide ideation, homicidal ideation, and hallucinations, Allergy/Immunology: Negative for hives, rash, and allergies, Endocrine: Negative for neck swelling, polydipsia, polyuria, polyphagia, and marked weight changes, Hematologic/Lymphatic: Negative for swollen nodes, abnormal bleeding, and unusual bruising. 15:42 : Positive for penile pain, of the head of penis and shaft of penis. Exam: 15:42 Constitutional: This is a well developed, well nourished patient who is awake, alert, leobardo and in no acute distress. Head/Face: Normocephalic, atraumatic. Eyes: Pupils equal round and reactive to light, extra-ocular motions intact. Lids and lashes normal. Conjunctiva and sclera are non-icteric and not injected. Cornea within normal limits. Periorbital areas with no swelling, redness, or edema. ENT: Nares patent. No nasal discharge, no septal abnormalities noted. Tympanic membranes are normal and external auditory canals are clear. Oropharynx with no redness, swelling, or masses, exudates, or evidence of obstruction, uvula midline. Mucous membranes moist. Neck: Trachea midline, no thyromegaly or masses palpated, and no cervical lymphadenopathy. Supple, full range of motion without nuchal rigidity, or vertebral point tenderness. No Meningismus. Chest/axilla: Normal chest wall appearance and motion. Nontender with no deformity. No lesions are appreciated. Cardiovascular: Regular rate and rhythm with a normal S1 and S2. No gallops, murmurs, or rubs. Normal PMI, no JVD. No pulse deficits. Respiratory: Lungs have equal breath sounds bilaterally, clear to auscultation and percussion. No rales, rhonchi or wheezes noted. No increased work of breathing, no retractions or nasal flaring. Abdomen/GI: Soft, non-tender, with normal bowel sounds. No distension or tympany. No guarding or rebound. No evidence of tenderness throughout. Back: No spinal tenderness. No costovertebral tenderness. Full range of motion. Skin: Warm, dry with normal turgor. Normal color with no rashes, no lesions, and no evidence of cellulitis. MS/ Extremity: Pulses equal, no cyanosis. Neurovascular intact. Full, normal range of motion. Neuro: Awake and alert, GCS 15, oriented to person, place, time, and situation. Cranial nerves II-XII grossly intact. Motor strength 5/5 in all extremities. Sensory grossly intact. Cerebellar exam normal. Normal gait. Psych: Awake, alert, with orientation to person, place and time. Behavior, mood, and affect are within normal limits. 15:42 : CVA tenderness, is absent, Male external genitalia: Patient is not circumisioned. Bladder: is normal, Sexual behavior: the patient is sexually active, and reports a single partner. 17:30 ECG was reviewed by the Attending Physician. [facility] Vital Signs: 15:38 BP 143 / 105; Pulse 80; Resp 18; Temp 97.9; Pulse Ox 98% ; Pain 10/10; ll1 16:10 BP 152 / 77; Pulse 80; Resp 17; Pulse Ox 99% on 2.5 lpm NC; ll1 18:14 BP 141 / 82; Pulse 66; Resp 17; Pulse Ox 99% ; Pain 0/10; ll1 Procedures: 18:44 Performed base pf penis dress and prepped, 1mg/1cc ns of phenylephrine to each corpus leobardo cavernosum, immediat results, flaccid. MDM: 15:16 Patient medically screened. [facility] 15:47 Differential diagnosis: urinary retention, prostatitis, urethritis. Data reviewed: [facility] vital signs, nurses notes, lab test result(s). Data interpreted: compliance monitor: rate is 80 beats/min, rhythm is regular, Pulse oximetry: on room air is 98 %. Test interpretation: by ED physician or midlevel provider:. Counseling: I had a detailed discussion with the patient and/or guardian regarding: the historical points, exam findings, and any diagnostic results supporting the discharge/admit diagnosis, lab results, the need for outpatient follow up, for definitive care, a urologist. 11/24 15:22 Order name: CBC with Diff [facility] 11/24 15:22 Order name: Comprehensive Metabolic Panel; Complete Time: 16:20 [facility] 11/24 15:22 Order name: UDS; Complete Time: 18:41 [facility] 11/24 15:22 Order name: Urine Culture [facility] 11/24 15:22 Order name: CBC with Automated Diff; Complete Time: 17:02 EDMS 11/24 17:29 Order name: Troponin (emerg Dept Use Only); Complete Time: 18:21 [facility] 11/24 18:18 Order name: Urine Dipstick--Ancillary (enter results) 11/24 15:22 Order name: Urine Dipstick-Ancillary (obtain specimen); Complete Time: 18:14 [facility] 11/24 15:46 Order name: Oxygen; Complete Time: 16:10 [facility] 11/24 17:06 Order name: Misc. Order: phenylephrine 1mg in 1 cc ns, in 2 x 5 cc syringes; Complete [facility] Time: 17:31 11/24 17:22 Order name: EKG; Complete Time: 17:23 [facility] 11/24 17:22 Order name: EKG - Nurse/Tech; Complete Time: 17:31 leobardo EC:30 Rate is 92 beats/min. Rhythm is regular. QRS [place] is Normal. LA interval is normal. QRS leobardo interval is normal. QT interval is normal. No Q waves. T waves are Normal. No ST changes noted. Clinical impression: NSR w/ Non-specific ST/T Changes and No evidence of ischemia. Interpreted by me. Reviewed by me. Administered Medications: 15:33 Drug: NS 0.9% 1000 ml Route: IV; Rate: 1 bolus; Site: right antecubital; leobardo 16:51 Follow up: Response: No adverse reaction; RASS: Alert and Calm (0); IV Status: ll1 Completed infusion; IV Intake: 1000ml 15:33 Drug: morphine 4 mg Route: IVP; Site: right antecubital; leobardo 16:52 Follow up: Response: No adverse reaction; RASS: Alert and Calm (0) ll1 15:33 Drug: Zofran (Ondansetron) 4 mg Route: IVP; Site: right antecubital; leobardo 16:52 Follow up: Response: No adverse reaction ll1 15:37 Drug: Terbutaline 0.5 mg Route: Sub-Q; Site: right lower abdomen; ll1 16:52 Follow up: Response: No adverse reaction; RASS: Alert and Calm (0) ll1 15:59 Drug: Pseudoephedrine 120 mg Route: PO; ll1 16:52 Follow up: Response: No adverse reaction; RASS: Alert and Calm (0) ll1 15:59 Drug: Terbutaline 0.5 mg Route: Sub-Q; Site: left lower abdomen; ll1 16:52 Follow up: Response: No adverse reaction ll1 16:50 Drug: Terbutaline 0.5 mg Route: Sub-Q; Site: right upper abdomen; ll1 16:53 Follow up: Response: No adverse reaction ll1 16:51 Drug: morphine 4 mg Route: IVP; Site: right antecubital; ll1 17:02 Follow up: Response: No adverse reaction; Pain is decreased; RASS: Alert and Calm (0) 1 16:51 Drug: Zofran (Ondansetron) 4 mg Route: IVP; Site: right antecubital; 1 17:02 Follow up: Response: No adverse reaction; RASS: Alert and Calm (0) 1 17:00 Drug: NS 0.9% 1000 ml Route: IV; Rate: 125 ml/hr; Site: right antecubital; 1 17:20 Drug: Rocephin 1 grams Route: IV; Rate: per protocol; Site: right antecubital; 1 18:13 Follow up: Response: No adverse reaction; RASS: Alert and Calm (0); IV Status: 1 Completed infusion; IV Intake: 20ml 17:36 Drug: Aspirin Chewable Tablet 162 mg Route: PO; 1 18:14 Follow up: Response: No adverse reaction; RASS: Alert and Calm (0) [facility] Disposition: 11/24/20 18:42 Discharged to Home. Impression: Chest pain, unspecified, Priapism, Abuse of other non-psychoactive substances. - Condition is Stable. - Discharge Instructions: Nonspecific Chest Pain, Substance Use Disorder, Priapism, Nonspecific Chest Pain, Yriu-tk-Ucll, Aspirin and Your Heart. - Prescriptions for Bactrim DS 800- 160 mg Oral Tablet - take 1 tablet by ORAL route every 12 hours for 7 days; 14 tablet. - Medication Reconciliation Form, Thank You Letter, Antibiotic Education, Prescription Opioid Use form. - Follow up: Private Physician; When: 2 - 3 days; Reason: Recheck today's complaints, Continuance of care, Re-evaluation by your physician. Follow up: Serge Bates; When: 2 - 3 days; Reason: Recheck today's complaints, Re-evaluation by your physician. Follow up: Branden Wilks; When: 2 - 3 days; Reason: Recheck today's complaints, Re-evaluation by your physician. - Problem is new. - Symptoms have improved. Signatures: Dispatcher [employer] EDKY Mervin Garrison MD MD cha Smirch, Shelby, LUIS EDUARDO RN Shavon Toscano RN RN ll1 Corrections: (The following items were deleted from the chart) 15:30 15:08 Scrotum Testicles+US.RAD.BRZ ordered. [facility] EDMS 19:04 18:42 11/24/2020 18:42 Discharged to Home. Impression: Chest pain, unspecified; ss Priapism; Abuse of other non-psychoactive substances. Condition is Stable. Discharge Instructions: Nonspecific Chest Pain, Priapism, Nonspecific Chest Pain, Frli-xc-Rvoj, Aspirin and Your Heart. Prescriptions for Bactrim DS 800-160 mg Oral Tablet - take 1 tablet by ORAL route every 12 hours for 7 days; 14 tablet. and Forms are Medication Reconciliation Form, Thank You Letter, Antibiotic Education, Prescription Opioid Use. Follow up: Private Physician; When: 2 - 3 days; Reason: Recheck today's complaints, Continuance of care, Re-evaluation by your physician. Follow up: Serge Bates; When: 2 - 3 days; Reason: Recheck today's complaints, Re-evaluation by your physician. Follow up: Branden Wilks; When: 2 - 3 days; Reason: Recheck today's complaints, Re-evaluation by your physician. Problem is new. Symptoms have improved. leobardo
[2020-11-24 19:09] VITALS: TEMP 97.9
[2020-11-24 19:11] VITALS: O2SAT 99
[2020-11-24 19:12] VITALS: BP 141/82
--- NOTE | 2020-11-25 10:29 | EKG ---
Test Date: 2020-11-24 Test Time: 17:26:01 Test Rack Operator: RANDOLPH MEASUREMENT RESULTS: Intervals: Rate: 92 NE: 144 QRSD: 108 QT: 360 QTc: 445 [place]: P: 62 NE: 144 QRS: -12 T: 44 INTERPRETIVE STATEMENTS: Normal sinus rhythm Nonspecific T wave abnormality Abnormal ECG No previous ECG available for comparison Electronically Signed On 11-25-20 10:27:52 GLASS CRUSHER by Branden Wilks
== END 2020-11-24 19:04 | disposition home or self-care (01) ==
LOC: ER 15:00
DX: N48.30 Priapism, unspecified (principal); F55.8 Abuse of other non-psychoactive substances
CPT/HCPCS: 36415; 80053; 80307; 81003; 84484; 85025; 87086; 87088; 93005; 96361; 96365; 96372; 96375; 99284; J0696; J2370; J2405; J3105; J7030

== ENCOUNTER 2021-01-21 17:30 | Inpatient (IN) | payer SELFPAY ==
--- OUTSIDE RECORDS SUMMARY | 2021-01-21 17:40 | XMS REPORT | Continuity of Care Document ---
:1980 Author Organization [facility] t Address [address] [place] [address] Care Team Providers Name Role Phone Guerrero DO Attending Clinician Doctor Unassigned, Name Attending Clinician Unavailable DR WILLIAM Attending Clinician Unavailable Arsalan Pittman [...] Mem oria 02-11 13:02:00 l OTHER 00:00: [place] 00 Active 02/11/2017 [facility] [place] PAIN IN Diagnosis Active 2017-02-07 Tx moria GROIN AREA -19 11:48:00 l PAIN IN 00:00: [place] GROIN AREA 00 Active 02/07/2017 [place] PAIN IN Diagnosis Active 2017-02-01 Me moria GROIN 3- 11:19:00 l PAIN IN 00:00: [place] GROIN 00 Active 02/01/2017 [place] PRIAPISM Diagnosis Active 2017-06-02 M emoria 3 10:32:00 l PRIAPISM 00:00: Heath n 00 Active 01/28/2017 [facility] ABDOMINAL Diagnosis Active 2016-06-14 Memoria PAIN 06-14 11:14:00 l 00:00: [place] ABDOMINAL 00 PAIN Active 06/14/2016 [place] GROIN PAIN Diagnosis Active 2016-06-08 Memoria 06-08 17:01:00 l GROIN 10:00: [place] PAIN 00 Active 06/08/2016 [place] CHEST PAIN Diagnosis Active 2011-112012-08-23 Memoria 0- 14:16:00 l CHEST 06:00: [place] PAIN 00 Active 08/23/2012 [place] Hypertensi Problem Active 2017-02-14 M emoria ve 04:12:21 l disorder, [place] systemic Hypertensi arterial ve (disorder) disorder, systemic arterial (disorder) Active Problem 02/14/2017 [facility] [place] Priapism Problem Active 2017-02-14 Mem oria (disorder) 04:12:21 l Priapism Heath n (disorder) Active Problem 02/14/2017 [facility] [place] History of Past Illness Condition Condition Condition Status Onset Resolution Last Treating Co mments Source Name Details Category Date Date Treatment Clinician Date Priapism, Problem 2017-02-14 2017-02-14 Memoria unspecifie 02-11 04:12:21 04:12:21 l d 05:00: [place] Priapism, 00 unspecifie d 02/11/2017 02/14/2017 [place] Priapism Problem 2017-02-10 2017-02-10 Memoria 02-07 00:30:06 00:30:06 l Priapism 05:00: Heath n 00 02/07/2017 02/10/2017 [facility] [place] Discharge Problem 2016-06-17 2016-06-17 Memoria Diagnosis: 06-14 00:37:55 00:37:55 l Priapism, 05:00: [place] unspecifie Discharge 00 d Diagnosis: Priapism, unspecifie d 06/14/2016 06/17/2016 [place] Discharge Problem 2016-06-11 2016-06-11 Memoria Diagnosis: 06-08 02:43:56 02:43:56 l Priapism 05:00: [place] Discharge 00 Diagnosis: Priapism 6 06/11/2016 [place] Discharge Problem 2016-06-11 2016-06-11 Memoria Diagnosis: 06-08 02:43:56 02:43:56 l Benign 05:00: [place] hypertensi Discharge 00 on Diagnosis: Benign hypertensi on 06/08/2016 06/11/2016 [place] Discharge Problem 2016-02-21 2016-02-21 Memoria Diagnosis: 02-17 04:42:59 04:42:59 l HTN 05:00: [place] (hypertens Discharge 00 ion) Diagnosis: HTN (hypertens ion) 02/18/2016 02/21/2016 [place] Allergies, Adverse Reactions, Alerts This patient has no known allergies or adverse reactions. Social History Smoking Status Start Date Stop Date Source Social History 2017-02-11 17:24:47 [facility] Medications Ordered Filled Start Stop Current Ordering Indication Dosage Frequency Signature Comments Components Source Medication Medication Date Date Medication? 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 (Same As: Poornima) Sodium No 1,000 mL, Memori a Chloride 02-11 1,000 l 0.154 18:09: ml/hr, [place] MEQ/ML 00 Infuse Injectable Over: 1 Solution hr, Route: IV, 1,000, Drug form: INJ, ONCE, Priority: STAT, Dosing Weight 89.091 kg, Start date: 02/11/17 13:09:00 CDT, Duration: 1 doses or times, Stop date: 02/11/17 13:09:00 CDT Zofran ODT No 4 mg, Memori a 02-11 Route: PO, l 18:00: Drug form: TABDIS, ONCE, Dosing Weight 89.091, kg, Priority: STAT, Start date: 02/11/17 13:00:00 CDT, Stop date: 02/11/17 13:00:00 CDT Morphine No 4 mg, Memoria 02-11 Route: IM, l 18:00: ONCE, Dosing Weight 89.091, kg, Priority: STAT, Start date: 02/11/17 13:00:00 CDT, Stop date: 02/11/17 13:00:00 CDT Acetaminoph Yes 1 tab, PO, Memoria en 325 MG / 3-19 Q6H, PRN l Hydrocodone 17:47: Pain Score [place] Bitartrate 00 6-10, do [address] Tablet or operate [[place] heavy 5/325] machinery while taking this medication not to exceed 8 tablets/da y, # 15 tab, 0 Refill(s) Amlodipine Yes 10 mg = 1 Me moria 10 MG Oral 3-19 tab, PO, l Tablet 17:47: Daily, # Sandro [Norvasc] 00 30 tab, 0 Refill(s) Labetalol No 20 mg, Memori a 02-07 Route: l 17:25: IVP, Drug form: INJ, ONCE, Dosing Weight 85.909, kg, Start date: 02/07/17 12:25:00 CDT, Stop date: 02/07/17 12:25:00 CDT Clonidine 2017-0 No 0.2 mg, Memor ia Hydrochlori 3-19 Route: PO, l de 0.2 MG 16:45: Drug form: He rmann Oral Tablet 00 TAB, ONCE, Dosing Weight 85.909, kg, Priority: STAT, Start date: 02/07/17 11:45:00 CDT, Stop date: 02/07/17 11:45:00 CDT Labetalol 2017-0 No 20 mg, Memori a 3-19 Route: l 16:41: IVP, Drug [place] 00 form: INJ, ONCE, Dosing Weight 85.909, kg, Priority: STAT, Start date: 02/07/17 11:41:00 CDT, Stop date: 02/07/17 11:41:00 CDT Morphine 2017-0 No 4 mg, Memoria 3-19 Route: IM, l 16:31: ONCE, [place] Dosing Weight 85.909, kg, Priority: STAT, Start date: 02/07/17 11:31:00 CDT, Stop date: 02/07/17 11:31:00 CDT Morphine 2017-0 No 4 mg, Memoria 3-19 Route: IM, l 15:40: ONCE, [place] 00 Dosing Weight 85.909, kg, Priority: STAT, Start date: 02/07/17 10:40:00 CDT, Stop date: 02/07/17 10:40:00 CDT Zofran ODT 2017-0 No 4 mg, Memori a 3-19 Route: PO, l 15:40: Drug form: [place] 00 TABDIS, ONCE, Dosing Weight 85.909, kg, Priority: STAT, Start date: 02/07/17 10:40:00 CDT, Stop date: 02/07/17 10:40:00 CDT Zofran ODT 2017-0 No 4 mg, Memori a 3-19 Route: PO, l 15:39: Drug form: [place] 00 TABDIS, ONCE, Dosing Weight 85.909, kg, Priority: STAT, Start date: 02/07/17 10:39:00 CDT, Stop date: 02/07/17 10:39:00 CDT Morphine 2017-0 No 4 mg, Memoria 3-19 Route: IM, l 15:39: ONCE, Dosing Weight 85.909, kg, Priority: STAT, Start date: 02/07/17 10:39:00 CDT, Stop date: 02/07/17 10:39:00 CDT Naeem-Synephr 2016-0 No Notes: Chapo ame ine 3-19 Same as: l 15:34: Naeem-Syneph rine Phenylephri 2016-0 No 10 mg, Chapo ame ne 02-07 Route: l 15:26: INJ, Q15Min, Dosing Weight 85.909, kg, PRN, Start date: 02/07/17 10:26:00 CDT, Duration: 30 day, Stop date: 03/09/17 10:25:00 CDT, pripism Lidocaine 2016-0 No Notes: Memori a Hydrochlori 02-07 (Same as: l de 10 MG/ML 15:21: Xylocaine) Solution Dilaudid 2016-0 No 0.5 mg, Memori a 3-13 Route: IM, l 16:03: ONCE, Dosing Weight 89.091, kg, Priority: STAT, Start date: 02/01/17 11:03:00 CDT, Stop date: 02/01/17 11:03:00 CDT Zofran 2017-0 No 4 mg, Memoria 3-13 Route: IM, l 15:08: Drug form: INJ, ONCE, Dosing Weight 89.091, kg, Priority: STAT, Start date: 02/01/17 10:08:00 CDT, Stop date: 02/01/17 10:08:00 CDT Zofran ODT 2017-0 No Notes: Memor ia 3-13 (Same as: l 15:01: Zofran ODT) Dilaudid 2016-0 No 0.5 mg, Memori a 3-13 Route: IM, l 15:01: ONCE, Dosing Weight 89.091, kg, Priority: STAT, Start date: 02/01/17 10:01:00 CDT, Stop date: 02/01/17 10:01:00 CDT Phenylephri 2017-0 No 1 mg, Memor ia ne 3-13 Route: l 14:55: SUB-Q, [place] ONCE, Dosing Weight 89.091, kg, Start date: 02/01/17 9:55:00 CDT, Stop date: 02/01/17 9:55:00 CDT Dilaudid 2016-0 No 1 mg, Memoria 02-01 Route: l 14:54: IVP, ONCE, Dosing Weight 89.091, kg, Priority: STAT, Start date: 02/01/17 9:54:00 CDT, Stop date: 02/01/17 9:54:00 CDT Amlodipine 0 No 10 mg, Memor ia 01-28 Route: PO, l 20:15: Drug form: [place] 00 TAB, ONCE, Dosing Weight 100.909, kg, Start date: 01/28/17 14:15:00 SUPPORT ENGINEER, Stop date: 01/28/17 14:15:00 SUPPORT ENGINEER Dilaudid 2016-0 No 0.5 mg, Memori a 01-28 Route: l 19:39: IVP, ONCE, Dosing Weight 100.909, kg, Priority: STAT, Start date: 01/28/17 13:39:00 SUPPORT ENGINEER, Stop date: 01/28/17 13:39:00 SUPPORT ENGINEER phenylephri 2016- No 100 Memori a ne - microgram, l 19:09: 1 mL, Route: intraCAVER NOSAL, Drug form: INJ, PRN, PRN Other -See Comment, Start date: 01/28/17 13:09:00 SUPPORT ENGINEER, Duration: 5 doses or times, Stop date: Limited # of times Lidocaine 2016-0 No Notes: Memori a Hydrochlori 01-28 (Same as: l de 10 MG/ML 18:57: Xylocaine) [place] Injectable 00 Solution phenylephri 2016-0 No 1 mL, Memor ia ne 10 mg/mL 01-28 Route: l injectable 18:55: intraCAVER H ermann solution 00 NOSAL, ONCE, Dosing Weight 100.909, kg, Start date: 01/28/17 12:55:00 SUPPORT ENGINEER, Stop date: 01/28/17 12:55:00 SUPPORT ENGINEER Morphine 2016-0 No Notes: Memoria 01-28 (Same l 18:42: as:MORPhin [place] 00 e Sulfate) Ondansetron No Notes: Chapo ame 3-09 (Same as: l 18:42: Zofran) [place] 00 MEDICATION WASTE Product Size: 4 mg Product Wasted: _0__ mg Zofran No 4 mg, Memoria 06-14 Route: l 18:33: IVP, Drug [place] 00 form: INJ, ONCE, Dosing Weight 93.182, kg, Priority: STAT, Start date: 06/14/16 13:33:00 CDT, Stop date: 06/14/16 13:33:00 CDT Dilaudid No 0.5 mg, Memori a 06-14 Route: l 18:33: IVP, ONCE, [place] 00 Dosing Weight 93.182, kg, Priority: STAT, Start date: 06/14/16 13:33:00 CDT, Stop date: 06/14/16 13:33:00 CDT Sodium No 1,000 mL, Memori a Chloride 06-14 1000 l 0.154 18:27: ml/hr, [place] MEQ/ML 00 Infuse Injectable Over: 1 Solution hr, Route: IV, 1,000, Drug form: INJ, ONCE, Priority: STAT, Dosing Weight 93.182 kg, Start date: 06/14/16 13:27:00 CDT, Duration: 1 doses or times, Stop date: 06/14/16 13:27:00 CDT Morphine No 2 mg, Memoria 06-14 Route: IM, l 17:11: Drug form: [place] 00 INJ, ONCE, Dosing Weight 93.182, kg, Priority: STAT, Start date: 06/14/16 12:11:00 CDT, Stop date: 06/14/16 12:11:00 CDT Phenylephri No Notes: Chapo ame ne 06-14 (Same as: l 16:08: Naeem-Syneph [place] 00 rine) Morphine No Notes: Memoria 06-14 (Same l 16:05: as:MORPhin [place] 00 e Sulfate) Zofran ODT No Notes: Memor ia 06-14 (Same as: l 16:05: Zofran [place] ODT) bupivacaine No 1 inj, Chapo ame [...] tab, Me moria en 325 MG / 7-18 PO, Q4-6H, l Hydrocodone 19:29: PRN Pain, H ermann Bitartrate 00 X 5 day, # 5 MG Oral 15 tab, 0 Tablet Refill(s) [[place] 5/325] Dilaudid No Notes: Memoria 7-18 (Same as: l 19:08: Dilaudid) Morphine 0 No 4 mg, Memoria 7-18 Route: IM, l 18:42: ONCE, Dosing Weight 88.636, kg, Start date: 06/08/16 13:42:00 CDT, Stop date: 06/08/16 13:42:00 CDT Morphine 2015-0 No 4 mg, Memoria 7-18 Route: IM, l 18:26: Drug form: INJ, ONCE, Dosing Weight 88.636, kg, Priority: STAT, Start date: 06/08/16 13:26:00 CDT, Stop date: 06/08/16 13:26:00 CDT Phenylephri No Route: Chapo ame ne -18 SUB-Q, l 18:23: ONCE, Dosing Weight 88.636, kg, Start date: 06/08/16 13:23:00 CDT, Stop date: 06/08/16 13:23:00 CDT Marcaine 2015-0 No 10 mL, Memoria HCl 18 Route: l 18:22: SUB-Q, Dosing Weight 88.636, kg, ONCE, Start date: 06/08/16 13:22:00 CDT, Stop date: 06/08/16 13:22:00 CDT Amlodipine No 10 mg, Memor ia 5- Route: PO, l 19:16: Drug form: [place] 00 TAB, ONCE, Dosing Weight 91.818, kg, Start date: 03/22/16 14:16:00 CDT, Stop date: 03/22/16 14:16:00 CDT Morphine No 4 mg, Memoria 5- Route: l 18:33: IVP, ONCE, [place] 00 Dosing Weight 91.818, kg, Priority: STAT, Start date: 03/22/16 13:33:00 CDT, Stop date: 03/22/16 13:33:00 CDT Hydralazine No Notes: Chapo ame 5-01 (Same as: l 17:46: Apresoline [place] 00 ) Push over 5 minutes Morphine No Notes: Memoria 5- (Same l 17:45: as:MORPhin [place] 00 e Sulfate) Ondansetron No Notes: Chapo ame 5-01 (Same as: l 17:45: Zofran) [place] 00 MEDICATION WASTE Product Size: 4 mg Product Wasted: ___ mg Phenylephri No Notes: Chap[place] ame ne 5-01 Same as: l 17:42: Naeem-Syneph [place] 00 rine Hydrochloro No Notes: Chapo ame thiazide 3-29 (Same as: l 21:44: Hydrodiuri [place]ro 00 l) With food. hydrochloro Yes 12.5 mg = M emoria thiazide 3-29 1 tab, PO, l 12.5 mg 21:42: Daily, # Heath n oral tablet 00 30 tab, 0 Refill(s) amLODIPine Yes 10 mg = 1 Me moria 10 mg oral 3-29 tab, PO, l tablet 21:41: Daily, # [place] 00 30 tab, 0 Refill(s) Ondansetron No 4 mg, Memor ia 3-29 Route: l 20:02: IVP, ONCE, [place] 00 Dosing Weight 90.136, kg, Priority: STAT, Start [...] MG Oral 15 tab, 0 Tablet Refill(s) [[place] 5/325] amLODIPine Yes 5 mg = 1 Mem oria 5 mg oral 3-20 tab, PO, l tablet 21:04: Daily, # 00 30 tab, 0 Refill(s) Marcaine No Notes: Memoria HCl 3-20 Preservati l 19:16: ve free. 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 (Same As: Brethine) Non-Formul crystal Dilaudid No 1 mg, Memoria 3-20 Route: l 19:06: IVP, ONCE, Dosing Weight 93.636, kg, Priority: STAT, Start date: 02/09/16 14:06:00, Stop date: 02/09/16 14:06:00 Labetalol 2015- No 20 mg, Memori a 3-20 Route: l 19:06: IVP, Drug form: INJ, ONCE, Dosing Weight 93.636, kg, Priority: STAT, Start date: 02/09/16 14:06:00, Stop date: 02/09/16 14:06:00 phenylephri 2015- No Notes: Chapo ame ne 10 mg/mL -20 (Same as: l injectable 18:45: Naeem-Syneph H ermann solution 00 rine) Unknown Yes Refill(s) Memor ia Home 3-20 0 l Medication 17:03: [place] Phenylephri 2015- No 1 mg, Memor ia ne 3-20 Route: l 16:15: SUB-Q, [place] 00 ONCE, Dosing Weight 93.636, kg, Start date: [...] Route: l 17:25: Yeaton IVP, ONCE, Kelsi 00 Dosing Weight 81.818, kg, Priority: STAT, Start date: 08/23/12 12:25:00, Stop date: 08/23/12 12:25:00 ondansetron 2012-1 No Evaristo 4 mg, Chapo ame 0-02 Julián Route: l 17:25: Yeaton IVP, ONCE, Kelsi nn 00 Dosing Weight 81.818, kg, Priority: STAT, Start date: 08/23/12 12:25:00, Stop date: 08/23/12 12:25:00 Sodium 2011- No Evaristo 1,000 mL, Memor ia Chloride 0-02 Julián Rate: l 0.9% 17:25: Yeaton 1,000 [place] (Bolus) IV 00 ml/hr, 1000 mL Infuse [...] Systolic (mm Hg) 2017-02-11 20:06:00 Chapo rial [place] Diastolic (mm Hg) 2017-02-11 20:06:00 Mem orial [place] Diastolic (mm Hg) 2017-02-11 18:45:00 Mem orial [place] Systolic (mm Hg) 2017-02-11 18:45:00 Chapo rial [place] Respitory Rate 2017-02-11 18:45:00 Memori al [place] Heart Rate 2017-02-11 18:45:00 [facility] [place] Weight 2017-02-11 17:18:00 [facility] [place] BMI Calculated 2017-02-11 17:18:00 Memori al [place] Systolic (mm Hg) 2017-02-11 17:18:00 Chapo rial [place] Diastolic (mm Hg) 2017-02-11 17:18:00 Mem orial [place] Temperature Oral (F) 2017-02-11 17:18:00 97.7 F [facility] [place] Respitory Rate 2017-02-11 17:18:00 Memori al [place] Heart Rate 2017-02-11 17:18:00 [facility] [place] Height 2017-02-11 17:18:00 167.64 cm [facility] [place] Systolic (mm Hg) 2017-02-07 17:44:00 Chapo rial [place] Diastolic (mm Hg) 2017-02-07 17:44:00 Mem orial [place] Respitory Rate 2017-02-07 17:44:00 Memori al [place] Systolic (mm Hg) 2017-02-07 16:47:00 Chapo rial [place] Diastolic (mm Hg) 2017-02-07 16:47:00 Mem orial [place] Respitory Rate 2017-02-07 16:47:00 Memori al [place] Systolic (mm Hg) 2017-02-07 15:39:00 Chapo rial [place] Diastolic (mm Hg) 2017-02-07 15:39:00 Mem orial [place] Respitory Rate 2017-02-07 15:39:00 Memori al [place] Weight 2017-02-07 15:11:00 [facility] [place] Temperature Oral (F) 2017-02-07 15:11:00 97.7 F [facility] [place] Heart Rate 2017-02-07 15:11:00 [facility] [place] Systolic (mm Hg) 2017-02-01 16:45:00 Chapo rial [place] Diastolic (mm Hg) 2017-02-01 16:45:00 Mem orial [place] Heart Rate 2017-02-01 16:45:00 [facility] [place] Respitory Rate 2017-02-01 16:45:00 Memori al [place] Temperature Oral (F) 2017-02-01 16:45:00 98.0 F [facility] [place] Height 2017-02-01 14:36:00 167.64 cm [facility] [place] BMI Calculated 2017-02-01 14:36:00 Memori al [place] Weight 2017-02-01 14:36:00 [facility] [place] Temperature Oral (F) 2017-02-01 14:36:00 97.6 F [facility] [place] Heart Rate 2017-02-01 14:36:00 [facility] [place] Respitory Rate 2017-02-01 14:36:00 Memori al [place] Systolic (mm Hg) 2017-02-01 14:36:00 Chapo rial [place] Diastolic (mm Hg) 2017-02-01 14:36:00 Mem orial [place] Temperature Oral (F) 2017-01-28 21:45:00 97.8 F [facility] [place] Systolic (mm Hg) 2017-01-28 21:45:00 Chapo rial [place] Diastolic (mm Hg) 2017-01-28 21:45:00 Mem orial [place] Respitory Rate 2017-01-28 21:45:00 Memori al [place] Systolic (mm Hg) 2017-01-28 21:03:00 Chapo rial [place] Diastolic (mm Hg) 2017-01-28 21:03:00 Mem orial [place] Respitory Rate 2017-01-28 20:47:00 Memori al [place] Systolic (mm Hg) 2017-01-28 20:47:00 Chapo rial [place] Diastolic (mm Hg) 2017-01-28 20:47:00 Mem orial [place] Respitory Rate 2017-01-28 19:22:00 Memori al [place] Weight 2017-01-28 18:12:00 [facility] [place] Temperature Oral (F) 2017-01-28 18:12:00 97.2 F [facility] [place] Heart Rate 2017-01-28 18:12:00 [facility] [place] Systolic (mm Hg) 2016-06-14 20:40:00 Chapo rial [place] Diastolic (mm Hg) 2016-06-14 20:40:00 Mem orial [place] Respitory Rate 2016-06-14 20:40:00 Memori al [place] Heart Rate 2016-06-14 20:40:00 [facility] [place] Temperature Oral (F) 2016-06-14 20:40:00 97.8 F [facility] [place] Heart Rate 2016-06-14 19:34:00 [facility] [place] Systolic (mm Hg) 2016-06-14 19:34:00 Chapo rial [place] Diastolic (mm Hg) 2016-06-14 19:34:00 Mem orial [place] Respitory Rate 2016-06-14 19:34:00 Memori al [place] Heart Rate 2016-06-14 18:33:00 [facility] [place] Respitory Rate 2016-06-14 18:33:00 Memori al [place] Systolic (mm Hg) 2016-06-14 18:33:00 Chapo rial [place] Diastolic (mm Hg) 2016-06-14 18:33:00 Mem orial [place] Height 2016-06-14 15:57:00 165.1 cm [facility] [place] Temperature Oral (F) 2016-06-14 15:57:00 97.6 F [facility] [place] Weight 2016-06-14 15:57:00 [facility] [place] BMI Calculated 2016-06-14 15:57:00 Memori al [place] Systolic (mm Hg) 2016-06-08 21:23:00 Chapo rial [place] Diastolic (mm Hg) 2016-06-08 21:23:00 Mem orial [place] Respitory Rate 2016-06-08 21:23:00 [facility]ori al [place] Heart Rate 2016-06-08 21:23:00 [facility] [place] Temperature Oral (F) 2016-06-08 21:23:00 98.0 F [facility] [place] Heart Rate 2016-06-08 20:34:00 [facility] [place] Respitory Rate 2016-06-08 20:34:00 Memori al [place] Systolic (mm Hg) 2016-06-08 20:34:00 Chapo rial [place] Diastolic (mm Hg) 2016-06-08 20:34:00 Mem orial [place] Systolic (mm Hg) 2016-06-08 19:53:00 Chapo rial [place] Diastolic (mm Hg) 2016-06-08 19:53:00 Mem orial [place] Heart Rate 2016-06-08 19:53:00 [facility] [place] Respitory Rate 2016-06-08 19:53:00 Memori al [place] Height 2016-06-08 18:03:00 167.64 cm [facility] [place] BMI Calculated 2016-06-08 18:03:00 [facility] [place] Weight 2016-06-08 18:03:00 [facility] [place] Temperature Oral (F) 2016-06-08 18:03:00 98.3 F [facility] [place] Systolic (mm Hg) 2016-03-22 19:18:00 Chapo rial [place] Diastolic (mm Hg) 2016-03-22 19:18:00 Mem orial [place] Heart Rate 2016-03-22 19:18:00 [facility] [place] Respitory Rate 2016-03-22 19:18:00 Memori al [place] Temperature Oral (F) 2016-03-22 19:18:00 97.7 F [facility] [place] Heart Rate 2016-03-22 18:42:00 [facility] [place] Respitory Rate 2016-03-22 18:42:00 Memori al [place] Systolic (mm Hg) 2016-03-22 18:42:00 Chapo rial [place] Diastolic (mm Hg) 2016-03-22 18:42:00 Mem orial [place] Height 2016-03-22 17:29:00 167.64 cm [facility] [place] BMI Calculated 2016-03-22 17:29:00 [facility] al [place] Weight 2016-03-22 17:29:00 [facility] [place] Temperature Oral (F) 2016-03-22 17:29:00 97.9 F [facility] [place] Systolic (mm Hg) 2016-03-22 17:29:00 Chapo rial [place] Diastolic (mm Hg) 2016-03-22 17:29:00 Mem orial [place] Respitory Rate 2016-03-22 17:29:00 Memori al [place] Heart Rate 2016-03-22 17:29:00 [facility] [place] Temperature Oral (F) 2016-02-18 22:17:00 98.0 F [facility] [place] Heart Rate 2016-02-18 22:17:00 [facility] [place] Respitory Rate 2016-02-18 22:17:00 Memori al [place] Systolic (mm Hg) 2016-02-18 22:17:00 Chapo rial [place] Diastolic (mm Hg) 2016-02-18 22:17:00 Mem orial [place] Respitory Rate 2016-02-18 21:08:00 Mem[facility] al [place] Systolic (mm Hg) 2016-02-18 21:08:00 Chapo rial [place] Diastolic (mm Hg) 2016-02-18 21:08:00 Mem orial [place] Heart Rate 2016-02-18 21:08:00 [facility] [place] Systolic (mm Hg) 2016-02-18 20:19:00 Chapo rial [place] Diastolic (mm Hg) 2016-02-18 20:19:00 Mem orial [place] Heart Rate 2016-02-18 20:19:00 [facility] [place] Respitory Rate 2016-02-18 20:19:00 [facility] al [place] Height 2016-02-18 19:11:00 165.1 cm [facility] [place] Temperature Oral (F) 2016-02-18 19:11:00 97.6 F [facility] [place] Weight 2016-02-18 19:11:00 [facility] [place] BMI Calculated 2016-02-18 19:11:00 [facility] [place] Heart Rate 2016-02-09 22:09:00 [facility] [place] Temperature Oral (F) 2016-02-09 22:09:00 98.8 F [facility] [place] Respitory Rate 2016-02-09 22:09:00 Memori al [place] Systolic (mm Hg) 2016-02-09 22:09:00 Chapo rial [place] Diastolic (mm Hg) 2016-02-09 22:09:00 Mem orial [place] Heart Rate 2016-02-09 21:48:00 [facility] [place] Respitory Rate 2016-02-09 21:48:00 Memori al [place] Systolic (mm Hg) 2016-02-09 21:48:00 Chapo rial [place] Diastolic (mm Hg) 2016-02-09 21:48:00 Mem orial [place] Heart Rate 2016-02-09 20:50:00 [facility] [place] Respitory Rate 2016-02-09 20:50:00 Memori al [place] Systolic (mm Hg) 2016-02-09 20:50:00 Chapo rial [place] Diastolic (mm Hg) 2016-02-09 20:50:00 Mem orial [place] Weight 2016-02-09 15:35:00 [facility] [place] BMI Calculated 2016-02-09 15:35:00 [facility] [place] Temperature Oral (F) 2016-02-09 15:35:00 98.2 F [facility] [place] Height 2016-02-09 15:35:00 165.1 cm [facility] [place] Weight 2012-08-23 16:46:00 [facility] [place] Height 2012-08-23 16:46:00 167.64 cm [facility] [place] Procedures This patient has no known procedures. Encounters Start End Encounter Admission Attending Care Care Encounter Source Date/Time Date/Time Type Type Clinicians Facility Department ID 2020-12-11 2020-12-11 Emergency FERNANDEZ Guerrero [id number] 13:29:00 15:47:00 Colt Feng [id number] [place] [id number] [place] [id number] 2020-12-11 2020-12-11 Orders Doctor CARVALHO [id number] 00:00:00 00:00:00 Only Unassigned, STEPHANIE [id number] [facility] [id number] [id number] 2020 2020 Emergency E WILLIAM [facility] [id number] [place] 14:22:00 19:18:00 EV Medica norah [facility] 2020-07-23 2020-07-23 Prep For Bettye [facility] [id number] 00:00:00 00:00:00 Surgery Di Feng [id number] [place] [id number] Professio [id number] nal 204 [facility] 2020-07-15 2020-07-15 Office Bernard [facility] [id number] 10:16:34 10:52:20 Visit Alexa [place] [id number] [place] [id number] Professio [id number] nal 377 [facility] 2019-11-19 2019-11-19 Emergency E [facility] [id number] [facility] 18:28:00 18:28:00 2018-06-17 2018-06-17 Emergency E CHRISTINE [facility] [id number] [place] 16:08:00 16:50:00 MARIFER Medica l Nitro 2018-05-15 2018-05-16 Inpatient E CHRISTA [facility] [id number] [place] 23:26:00 13:00:00 CHARLIE Medica l Nitro 2018-03-19 2018-03-19 Emergency E [facility]RISTINE [facility] [id number] [place] 03:55:00 08:18:00 MARIFER Medica l Nitro 2018-01-08 2018-01-08 Emergency E OEKenan, [facility] [id number] [place] 19:11:00 20:19:00 LEONIE Medic al Nitro 2017-10-03 2017-10-03 Emergency E RAYSEE Arredondo [facility] [id number] [place] 12:54:00 15:40:00 Medica l Nitro 2017-02-11 2017-02-11 Outpatient Seun, [place] SL [id number] 12:03:00 16:00:00 Gabe 09 [place] 2017-02-07 2017-02-07 Outpatient Matteo Palomo SL [facility] [id number] 10:05:00 12:54:00 King Jigna 2017-02-01 2017-02-01 Outpatient Seun [facility] [id number] 09:33:00 11:47:00 Gabetucker Joe 2017-01-28 2017-01-28 [facility] [id number] 12:09:00 16:42:00 Gerald Farley 2016-06-14 2016-06-14 Outpatient Matteo Palomo SL [facility] [id number] 10:45:00 16:20:00 2016-06-08 2016-06-08 Outpatient Seun SL S [id number] 12:25:00 16:25:00 Gabe 04 Heath 2016-03-22 2016-03-22 Outpatient Jonathan Schuster SL S [id number] 12:29:00 14:45:00 2016-02-18 2016-02-18 Outpatient Real SL S [id number] 13:53:00 17:20:00 Marisol Rao 2016-02-09 2016-02-09 Outpatient Seun SL SL [id number] 10:20:00 17:50:00 Gabe Joe Results Test Description Test Time Test Comments Results Result Comments Source XR LOWER LEG 2018-06-17 Exam: Right tib-fib RT/TIB-FIB AP & LAT 16:36:46 2 views AP and lateral.Location: S3IWNOAMA: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
[2021-01-21 18:15] LABS: Absolute Lymphocytes (CBC) 3.1 K/uL (0.7-4.9); Basophils % 0.5 % (0-1.3); Hematocrit 43.5 % (39.6-49.0); Lymphocytes % 24.8 % (15.3-44.8); MPV 9.2 fL (7.6-11.3); RBC Red Blood Cell Count 4.75 M/uL (4.33-5.43)
[2021-01-21] MEDS ORDERED: ONDANSETRON 4 MG/2 ML VIAL ONE (18:15)
[2021-01-21] MEDS ORDERED: MORPHINE 4 MG/ML SYR ONE ×2 (18:15→21:55)
[2021-01-21 18:22] LABS: BUN Blood Urea Nitrogen 13 mg/dL (7-18); Bicarbonate 28 mmol/L (21-32); Glucose Level 102 mg/dL (74-106); Potassium 3.2 mmol/L (3.5-5.1); Sodium Level 139 mmol/L (136-145)
--- NOTE | 2021-01-21 18:46 | RAD REPORT ---
EXAM DESCRIPTION: CT - Pelvis W/Cont - 01/21/2021 6:33 pm CLINICAL HISTORY: rectal swelling, perirectal pain COMPARISON: No comparisons TECHNIQUE: Axial 5 millimeter thick images of the pelvis were obtained following IV contrast. No ora l contrast administered. The CT scan was performed using dose optimization techniques as appropriate to a performed exam incl uding one or more of the following: Automated exposure control, adjustment of the mA and/or kV accord ing to patient size (this includes techniques or standardized protocols for targeted exams where dose is matched to indication/reason for exam) and use of iterative reconstruction technique. FINDINGS: A 4 x 2 x 2 centimeter oval perirectal abscess is present abutting the posterior rectal an al soft tissues extending into the right side subcutaneous fatty tissues of the gluteal crease. No ab normal air in the fat of the perineum. No other area of abscess or inflammatory stranding. Within the peritoneal and retroperitoneal spaces no mass, inflammatory stranding or other suspicious finding. IMPRESSION: Posterior 4 x 2 x 2 cm perirectal abscess abutting the posterior margin of the distal re ctum and anus and extending into the subcutaneous fatty tissues right gluteal crease.
--- NOTE | 2021-01-21 19:02 | ER ---
Nurse's Notes [facility] Name: Williams Avila Jr Age: 40 yrs Sex: Male : 1980 Arrival Date: 01/21/2021 Time: 17:34 Bed 24 Private MD: Diagnosis: Rectal abscess Presentation: 01/21 17:39 Chief complaint: Patient states: "i was having a hard time using the restroom on jd3 Wednesday or Wednesday, but I was straining to get it out and I all of a sudden had pain and I feel like this ball now that is shooting pain ever since then.". Coronavirus screen: At this time, the client does not indicate any symptoms associated with coronavirus-19. Ebola Screen: Patient negative for fever greater than or equal to 101.5 degrees Fahrenheit, and additional compatible Ebola Virus Disease symptoms. Initial Sepsis Screen: Does the patient meet any 2 criteria? No. Patient's initial sepsis screen is negative. Does the patient have a suspected source of infection? No. Patient's initial sepsis screen is negative. Risk Assessment: Do you want to hurt yourself or someone else? Patient reports no desire to harm self or others. Onset of symptoms was January 19, 2021. 17:39 Method Of Arrival: Ambulatory jd3 17:39 Acuity: RADHA 4 jd3 17:52 Acuity: RADHA 3 iw Historical: - Allergies: 17:44 codeine; jd3 - Home Meds: 17:44 amlodipine oral [Active]; losartan oral oral [Active]; jd3 - PMHx: 17:44 Hypertension; jd3 - PSHx: 17:44 right wrist; jd3 - Immunization history:: Adult Immunizations up to date. - Social history:: Smoking status: Patient denies any tobacco usage or history of. Screenin:54 Abuse screen: Denies threats or abuse. Denies injuries from another. Nutritional zb screening: No deficits noted. Tuberculosis screening: No symptoms or risk factors identified. Fall Risk None identified. Assessment: 17:51 General: Appears uncomfortable, Behavior is calm, cooperative, appropriate for age, zb Denies fever, feeling ill, fatigue. Pain: Complains of pain in anus Pain does not radiate. Pain currently is 10 out of 10 on a pain scale. Quality of pain is described as sharp, tender, Pain began Wednesday Is continuous, Alleviated by nothing. Aggravated by pressure or attempting a bowel movement. Noted to be grimacing, Also complains of constipation. Neuro: Level of Consciousness is awake, alert, obeys commands, Oriented to person, place, time, situation. Cardiovascular: Capillary refill < 3 seconds in bilateral fingers Patient's skin is warm and dry. Respiratory: Airway is patent Respiratory effort is even, unlabored, Respiratory pattern is regular, symmetrical. GI: Abdomen is round non-distended, Bowel sounds present X 4 quads. GI: Reports constipation. : No signs and/or symptoms were reported regarding the genitourinary system. EENT: No signs and/or symptoms were reported regarding the EENT system. Derm: Skin is intact, is healthy with good turgor, Skin is dry, Skin is normal, Skin temperature is warm Abscess located on anus is dime sized, white tender area. Musculoskeletal: Range of motion: intact in all extremities. 18:30 Reassessment: Patient appears in no apparent distress at this time. Patient and/or zb family updated on plan of care and expected duration. Pain level reassessed. Patient is alert, oriented x 3, equal unlabored respirations, skin warm/dry/pink. 19:12 Reassessment: notified ECP patient c/o chest pain/ pressure suddenly, SOB, and zb tightness. 20:30 Reassessment: Patient appears in no apparent distress at this time. Patient and/or zb family updated on plan of care and expected duration. Pain level reassessed. Patient is alert, oriented x 3, equal unlabored respirations, skin warm/dry/pink. patient appears to be resting at this time. chest pain has disappeared. 21:20 Reassessment: notified floor nurse cipro was not given in ER due to it not being in the zb pyxis. agreed to give it up stairs. 21:30 Reassessment: Patient appears in no apparent distress at this time. Patient and/or zb family updated on plan of care and expected duration. Pain level reassessed. Patient is alert, oriented x 3, equal unlabored respirations, skin warm/dry/pink. patient states he was in pain notified ECP. medication given. Vital Signs: 17:49 BP 177 / 103; Pulse 80; Resp 16; Temp 98.7; Pulse Ox 100% on R/A; Weight 83.91 kg; zb Height 5 ft. 6 in. (167.64 cm); Pain 10/10; 19:00 BP 169 / 96; Pulse 88; Resp 15; Pulse Ox 100% on R/A; zb 21:00 BP 170 / 105; Pulse 80; Resp 16; Pulse Ox 100% on R/A; zb 17:49 Body Mass Index 29.86 (83.91 kg, 167.64 cm) zb ED Course: 17:34 Patient arrived in ED. mr 17:38 Dewey Ruiz PA is PHCP. jmm 17:38 Drew Cox MD is Attending Physician. jmm 17:42 Triage completed. jd3 17:44 Arm band placed on. jd3 17:48 Jazlyn Dover, LUIS EDUARDO is Primary Nurse. zb 17:54 Patient has correct armband on for positive identification. Placed in gown. Bed in low zb position. Call light in reach. Side rails up X 1. Pulse ox on. NIBP on. Door closed. Noise minimized. Head of bed lowered. Turned to right side. 17:59 Inserted saline lock: 20 gauge in right forearm, using aseptic technique. Blood dh4 collected. 18:33 CT Pelvis w cont In Process Unspecified. EDMS 19:00 Filippo Burks MD is Hospitalizing Provider. jmm 19:16 Reece Meraz DO is Hospitalizing Provider. jmm 21:43 No provider procedures requiring assistance completed. Patient admitted, IV remains in zb place. Administered Medications: 18:02 Drug: morphine 4 mg Route: IVP; Site: right forearm; zb 18:30 Follow up: Response: No adverse reaction; Pain is decreased zb 18:02 Drug: Zofran (Ondansetron) 4 mg Route: IVP; Site: right forearm; zb 18:30 Follow up: Response: No adverse reaction zb 19:42 Drug: Flagyl 500 mg Volume: 100 ml; Route: IVPB; Rate: 200 ml/hr; Infused Over: 30 zb mins; Site: right forearm; 20:15 Follow up: Response: No adverse reaction; IV Status: Completed infusion; IV Intake: zb 100ml 19:42 Drug: ProTONIX 40 mg Route: IVP; Site: right forearm; zb 20:00 Follow up: Response: No adverse reaction; Marked relief of symptoms zb 19:43 Drug: GI Cocktail without - (Maalox Suspension 30 ml, Lidocaine Liquid 2 % 15 zb ml) Route: PO; 20:20 Follow up: Response: No adverse reaction; Pain is decreased zb 21:33 Drug: morphine 4 mg Route: IVP; Site: right forearm; zb 21:51 Follow up: Response: No adverse reaction; Marked relief of symptoms; RASS: Alert and zb Calm (0) 21:49 Not Given (will be given up stair . medicaton no in pyxis ): Cipro 400 mg 200 ml IVPB zb once over 60 mins Intake: 20:15 IV: 100ml; Total: 100ml. zb Outcome: 19:01 Decision to Hospitalize by Provider. dat 21:43 Admitted to Med/surg accompanied by tech, via wheelchair, room 207, with chart, Report zb called to LUIS EDUARDO Martin 21:43 Condition: stable 21:43 Instructed on follow up and referral plans. Demonstrated understanding of follow-up care. 21:51 Patient left the ED. zb Signatures: Dispatcher [employer] EDMS Dewey Ruiz PA PA [facility] OkeefeEarline garber Irene, RN Shadi Ricks RN RN jd3 Huhn, Donald dh4 Brown, Zipporah, RN RN zb Corrections: (The following items were deleted from the chart) 17:54 17:51 Derm: Skin is intact, is healthy with good turgor, Skin is dry, Skin is normal, zb Skin temperature is warm zb
--- NOTE | 2021-01-21 19:02 | EDPHYS ---
Physician Documentation [facility] Name: Williams Avila Jr Age: 40 yrs Sex: Male : 1980 Arrival Date: 01/21/2021 Time: 17:34 Bed 24 Private MD: ED Physician Drew Cox HPI: 01/21 17:46 This 40 yrs old Male presents to ER via Ambulatory with complaints of Abscess. jmm 17:46 the patient presents with a swollen area of the anus. Onset: The symptoms/episode jmm began/occurred gradually, 4 day(s) ago. Possible cause(s): unknown. Associated signs and symptoms: Pertinent negatives: fever. Modifying factors: the symptoms are alleviated by nothing, the symptoms are aggravated by nothing. This is a 40 year old male with a history of htn that presents to the ED with complaints of rectal pain which is relieved by sitz baths. Denies fever. Patient has had similar episode before. . Historical: - Allergies: 17:44 codeine; jd3 - Home Meds: 17:44 amlodipine oral [Active]; losartan oral oral [Active]; jd3 - PMHx: 17:44 Hypertension; jd3 - PSHx: 17:44 right wrist; jd3 - Immunization history:: Adult Immunizations up to date. - Social history:: Smoking status: Patient denies any tobacco usage or history of. ROS: 17:46 Constitutional: Negative for fever, chills, and weight loss, Cardiovascular: Negative jmm for chest pain, palpitations, and edema, Respiratory: Negative for shortness of breath, cough, wheezing, and pleuritic chest pain. 17:46 Abdomen/GI: Positive for rectal pain. 17:46 All other systems are negative. Exam: 17:46 Constitutional: This is a well developed, well nourished patient who is awake, alert, jmm and in no acute distress. Head/Face: atraumatic. Eyes: EOMI, no conjunctival erythema appreciated ENT: Moist Mucus Membranes Neck: Trachea midline, Supple Chest/axilla: Normal chest wall appearance and motion. Cardiovascular: Regular rate and rhythm. No edema appreciated Respiratory: Normal respirations, no respiratory distress appreciated 17:46 Skin: General appearance color normal MS/ Extremity: Moves all extremities, no obvious deformities appreciated, no edema noted to the lower extremities Neuro: Awake and alert, normal gait Psych: Behavior is normal, Mood is normal, Patient is cooperative and pleasant 17:46 Abdomen/GI: Rectal exam: swelling, tenderness, that is moderate. Vital Signs: 17:49 BP 177 / 103; Pulse 80; Resp 16; Temp 98.7; Pulse Ox 100% on R/A; Weight 83.91 kg; zb Height 5 ft. 6 in. (167.64 cm); Pain 10/10; 19:00 BP 169 / 96; Pulse 88; Resp 15; Pulse Ox 100% on R/A; zb 21:00 BP 170 / 105; Pulse 80; Resp 16; Pulse Ox 100% on R/A; zb 17:49 Body Mass Index 29.86 (83.91 kg, 167.64 cm) zb MDM: 17:46 Patient medically screened. [facility] 17:46 Data reviewed: vital signs, nurses notes. [facility] 18:59 Counseling: I had a detailed discussion with the patient and/or guardian regarding: the [facility] historical points, exam findings, and any diagnostic results supporting the discharge/admit diagnosis, radiology results, the need for further work-up and treatment in the hospital. ED course: I discussed the patient with Dr. Burks whom accepted the patient for admission. . 03 17:47 Order name: CBC with Diff; Complete Time: 18:34 [facility] 01/21 17:47 Order name: BMP; Complete Time: 18:34 [facility] 01/21 17:47 Order name: CT Pelvis w cont; Complete Time: 18:48 [facility] 01/21 19:13 Order name: Troponin (emerg Dept Use Only); Complete Time: 20:03 [facility] 01/21 20:23 Order name: SARS-COV-2 RT PCR; Complete Time: 20:25 [facility] 01/21 19:13 Order name: Chest Single View XRAY [facility] 01/21 21:14 Order name: RAD; Complete Time: 21:16 [facility] 01/21 17:47 Order name: Saline Lock; Complete Time: 17:59 [facility] 01/21 19:11 Order name: EKG - Nurse/Tech; Complete Time: 19:27 [facility] Administered Medications: 18:02 Drug: morphine 4 mg Route: IVP; Site: right forearm; zb 18:30 Follow up: Response: No adverse reaction; Pain is decreased zb 18:02 Drug: Zofran (Ondansetron) 4 mg Route: IVP; Site: right forearm; zb 18:30 Follow up: Response: No adverse reaction zb 19:42 Drug: Flagyl 500 mg Volume: 100 ml; Route: IVPB; Rate: 200 ml/hr; Infused Over: 30 zb mins; Site: right forearm; 20:15 Follow up: Response: No adverse reaction; IV Status: Completed infusion; IV Intake: zb 100ml 19:42 Drug: ProTONIX 40 mg Route: IVP; Site: right forearm; zb 20:00 Follow up: Response: No adverse reaction; Marked relief of symptoms zb 19:43 Drug: GI Cocktail without - (Maalox Suspension 30 ml, Lidocaine Liquid 2 % 15 zb ml) Route: PO; 20:20 Follow up: Response: No adverse reaction; Pain is decreased zb 21:33 Drug: morphine 4 mg Route: IVP; Site: right forearm; zb 21:51 Follow up: Response: No adverse reaction; Marked relief of symptoms; RASS: Alert and zb Calm (0) 21:49 Not Given (will be given up stair . medicaton no in pyxis ): Cipro 400 mg 200 ml IVPB zb once over 60 mins Disposition: 01/21/21 19:01 Hospitalization ordered by Reece Meraz for Observation. Preliminary diagnosis is Rectal abscess. - Bed requested for Telemetry/MedSurg (observation). - Status is Observation. zb - Condition is Stable. - Problem is new. - Symptoms are unchanged. Addendum: 01/28/2021 07:06 Co-signature as Attending Physician, Drew Cox MD. r n Signatures: Dispatcher [employer] Elissa Sanabria RN Dewey Castro PA PA jmm Nieto, Roman, MD MD rn Attema, Lee, ABBEY-Adrian VIERAP-Cla1 Shadi Felipe RN RN jJazlyn Thurman RN RN zb Corrections: (The following items were deleted from the chart) 01/21 19:16 19:01 Hospitalization Ordered by Filippo Burks MD for Observation. Preliminary [facility] diagnosis is Rectal abscess. Bed requested for Telemetry/MedSurg (observation). Status is Observation. Condition is Stable. Problem is new. Symptoms are unchanged. [facility] 19:42 18:55 CORONAVIRUS+MR.LAB.BRZ ordered. EDIA EDMS 20:08 19:16 01/21/2021 19:01 Hospitalization Ordered by Reece Meraz DO for Observation. dw Preliminary diagnosis is Rectal abscess. Bed requested for Telemetry/MedSurg (observation). Status is Observation. Condition is Stable. Problem is new. Symptoms are unchanged. [facility] 21:51 20:08 01/21/2021 19:01 Hospitalization Ordered by Reece Meraz DO for Observation. zb Preliminary diagnosis is Rectal abscess. Bed requested for Telemetry/MedSurg (observation). Status is Observation. Condition is Stable. Problem is new. Symptoms are unchanged. dw
[2021-01-21] MEDS ORDERED: PANTOPRAZOLE 40 MG INJ ONE (19:48)
[2021-01-21] MEDS ORDERED: MAGNES/ALUMIN/SIMET 30ML UCUP ONE (19:48)
[2021-01-21] MEDS ORDERED: LIDOCAINE VISCOUS 2% SOLN 15 ML UDC ONE (19:48)
[2021-01-21] MEDS ORDERED: CIPROFLOXACIN 400mg IV 0 MG/0 ML BAG IV ONE (19:49)
[2021-01-21] MEDS ORDERED: METRONIDAZOLE 500mg IVPB 500 MG/100 ML BAG IV ONE (19:49)
--- NOTE | 2021-01-21 19:54 | P.HP ---
Certification for Inpatient Patient admitted to: Observation With expected LOS: <2 Midnights Patient will require the following post-hospital care: None Practitioner: I am a practitioner with admitting privileges, knowledge of patient current condition, hospital course, and medical plan of care. Services: Services provided to patient in accordance with Admission requirements found in Title 42 Section 412.3 of the Code of Federal Regulations Patient History Date of Service: 01/21/21 Primary Care Provider: none Reason for admission: Perirectal abscess/chest pain History of Present Illness: 40-year-old male with history of hypertension presents emergency department for rectal pain. Patient reports that he has been having a hard time using the restroom for the last couple of days and was straining and then had a severe pain in the rectal area. Patient was evaluated in the emergency department found to have elevated white blood cell count at 12.5, platelet [address] demonstrates posterior 4 x 2 x 2 cm perirectal abscess about in the posterior margin of the distal rectum and anus and extending into the subcutaneous fatty tissues in the right gluteal crease. General surgery was consulted and did see the patient, while patient was in the emergency department after lying down he experienced some chest pain, patient reports pain as squeezing from his abdomen to his neck, reports pain with mildly relieved by sitting up. Chest x-ray/troponin ordered and pending, general surgery wishes for patient to be admitted to the hospitalist service for chest pain rule out prior to surgical intervention planned for tomorrow. 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 moist/pink Neck: Supple, 2+ carotid pulse no bruit, No LAD Respiratory: Clear to auscultation bilaterally, Normal air movement Cardiovascular: Regular rate/rhythm, Normal S1 S2 Gastrointestinal: Normal bowel sounds, No tenderness Musculoskeletal: No tenderness Integumentary: No rashes Neurological: Normal speech, Normal strength at 5/5 x4 extr, Normal tone, Normal affect - Studies Laboratory Data (last 24 hrs) 01/21/21 18:00: Sodium 139, Potassium 3.2 L, BUN 13, Creatinine 0.88, Glucose 102 01/21/21 18:00: WBC 12.50 H, Hgb 14.7, Hct 43.5, Plt Count 144 L Assessment and Plan - Plan Assessment Perirectal abscess Chest pain rule out ACS Hypertension Plan Perirectal abscess: NPO after midnight, General Surgery consulted. Plan is for surgical incision and drainage after cleared by cardiology for chest pain. DVT prophylaxis with SCDs, continue with IV Cipro/Rocephin. P.r.n. pain and nausea medications. Chest pain rule out ACS: Trend troponins, monitor on telemetry. Cardiology consult in place. Will need cardiac clearance prior to surgical incision and drainage for perirectal abscess. Pain occurred after lying flat, possibly related to GERD, provide patient with Protonix given GI cocktail in the emergency department. Hypertension: Patient hypertensive upon arrival to the ED, reports taking amlodipine and losartan the unsure of doses, will obtain and verify home medications. P.r.n. IV pain medication after midnight due to planned surgical intervention, will re-evaluate patient's home medications. Discharge Plan: Home Plan to discharge in: 24 Hours - Advance Directives Does patient have a Living Will: No Does patient have a Durable POA for Healthcare: No - Code Status/Comfort Care Code Status Assessed: Yes (Full code) Critical Care: No Time Spent Managing Pts Care (In Minutes): 55
--- NOTE | 2021-01-21 21:14 | RAD REPORT ---
EXAM DESCRIPTION: RAD - Chest Single View - 01/21/2021 8:14 pm CLINICAL HISTORY: CHEST PAIN COMPARISON: None TECHNIQUE: AP portable chest image was obtained 01/21/2021 8:14 pm . FINDINGS: Lungs are clear. Heart and vasculature are normal. No measurable pleural effusion and no p neumothorax. No acute bony abnormality seen. No acute aortic findings suspected. IMPRESSION: No acute cardiopulmonary process.
[2021-01-21] MEDS ORDERED: ACETAMINOPHEN 500 MG TAB PO PRN (21:18)
[2021-01-21] MEDS ORDERED: SODIUM CHLORIDE 0.9% 10ML INJ IV PRN (21:18)
[2021-01-21] MEDS ORDERED: HYDRALAZINE HCL 20 MG/ML VIAL IV PRN (21:18)
[2021-01-21] MEDS ORDERED: ONDANSETRON 4 MG/2 ML VIAL IV PRN (21:18)
[2021-01-21] MEDS ORDERED: POTASSIUM CL SA 10 MEQ TAB PO ONE (21:31)
[2021-01-21] MEDS: CIPROFLOXACIN 400mg IV 400 MG/200 ML BAG IV SCH (22:19)
[2021-01-21 23:11] VITALS: O2SAT 98; BMI 30.9
[2021-01-21] MEDS: MORPHINE 2 MG/ML SYR IV PRN (23:43)
[2021-01-22] MEDS: METRONIDAZOLE 500mg IVPB 500 MG/100 ML BAG IV SCH ×3 (00:28→16:06)
[2021-01-22] MEDS: MORPHINE 2 MG/ML SYR IV PRN (04:25)
[2021-01-22 05:39] LABS: Absolute Lymphocytes (CBC) 2.3 K/uL (0.7-4.9); Basophils % 0.3 % (0-1.3); Hematocrit 39.9 % (39.6-49.0); Lymphocytes % 18.8 % (15.3-44.8); MPV 8.7 fL (7.6-11.3); RBC Red Blood Cell Count 4.37 M/uL (4.33-5.43)
[2021-01-22 06:03] LABS: ALT/SGPT 94 U/L (12-78); AST/SGOT 68 U/L (15-37); Albumin 3.2 g/dL (3.4-5.0); Alkaline Phosphatase 197 U/L (45-117); BUN Blood Urea Nitrogen 12 mg/dL (7-18); Bicarbonate 27 mmol/L (21-32); Bilirubin Total 0.6 mg/dL (0.2-1.0); Glucose Level 102 mg/dL (74-106); HDL Cholesterol 38 mg/dL (40-60); LDL Cholesterol, Calculated 76 (<130); Magnesium 2.1 mg/dL (1.8-2.4); Potassium 3.2 mmol/L (3.5-5.1); Protein, Total 6.9 g/dL (6.4-8.2); Sodium Level 140 mmol/L (136-145); Troponin I < 0.02 ng/mL (0.0-0.045)
[2021-01-22] MEDS ORDERED: HYDROCODONE/APAP 7.5/325 MG TAB PO PRN (07:37)
[2021-01-22] MEDS ORDERED: TRAMADOL HCL 50 MG TAB PO PRN (07:37)
--- NOTE | 2021-01-22 07:38 | P.PN ---
Subjective Date of Service: 01/22/21 Primary Care Provider: none Chief Complaint: Perirectal abscess/chest pain Subjective: Improving, Other (Pain to the rectal region noted.) Physical Examination - Vital Signs Temperature: 96.8 F Blood Pressure: 169/86 Pulse: 83 Respirations: 18 Pulse Ox (%): 97 - Studies Laboratory Data (last 24 hrs) 01/21/21 18:00: Sodium 139, Potassium 3.2 L, BUN 13, Creatinine 0.88, Glucose 102 01/21/21 18:00: WBC 12.50 H, Hgb 14.7, Hct 43.5, Plt Count 144 L Assessment & Plan Discharge Plan: Home Plan to discharge in: 24 Hours Physician Review Additional Text: Physical exam: Patient alert, cooperative. No significant distress noted. No chest pain noted. Heart: Regular rate rhythm Lungs: Clear to auscultation Abdomen: Soft nontender nondistended Rectal region: Not visualized but reports some pain. Extremities: Good range of motion to the upper lower extremities. No no focal deficits. Impression: Posterior 4 x 2 x 2 cm perirectal abscess abutting the posterior margin of the distal rectum and anus extending into the subcutaneous fatty tissue of the right gluteal crease Chest pain, atypical likely GERD Hypertension Elevated liver function Plan Posterior 4 x 2 x 2 cm perirectal abscess abutting the posterior margin of the distal rectum and anus extending into the subcutaneous fatty tissue of the right gluteal crease: Patient NPO at this time. Continued IV medication. Continue IV antibiotic therapy-Cipro/Flagyl. Anticipate surgery today. Possible discharge later today if okay with surgery. Will discuss with surgery. Patient will need to be taught on wound care and expectations. Chest pain, atypical likely GERD: Troponins unremarkable. Chest pain atypical likely GERD. Continue IV Protonix. Cardiology consulted for further recommendation. Hypertension: Home medications restarted including amlodipine and losartan. Compliance with medication addressed in detail. Patient will need a PCP as an outpatient to further monitor and address. Elevated liver function: Etiology unknown. Will check urine drug screen. Will send for hepatitis panel. This can be followed up as an outpatient. Time Spent Managing Pts Care (In Minutes): 55
[2021-01-22] MEDS ORDERED: INFLUENZA VACCINE (for 3y+) 0.5 ML DOSE IMVAC ONE (08:00)
[2021-01-22] MEDS: KCL 20 MEQ/100 mL IVPB 20 MEQ/100 ML BAG IV SCH ×2 (08:20→16:00)
[2021-01-22] MEDS ORDERED: LOSARTAN POTASSIUM 50 MG TABLET PO SCH (09:00)
[2021-01-22] MEDS ORDERED: AMLODIPINE 10 MG TAB PO SCH (09:00)
[2021-01-22] MEDS ORDERED: PANTOPRAZOLE 40 MG INJ IVP SCH (09:00)
[2021-01-22] MEDS ORDERED: NA CHLORIDE 0.9% 250 ML ONE (10:39)
[2021-01-22] MEDS ORDERED: Ringers Lactate 1,000 ML IV ONE (11:24)
[2021-01-22] MEDS: CIPROFLOXACIN 400mg IV 400 MG/200 ML BAG IV SCH (11:30)
--- NOTE | 2021-01-22 12:03 | P.HP ---
Date of Service: 01/22/21 PC: This 40-year-old male presents emergency room with severe prep for rectal pain for diagnosis and treatment. HPC: Patient has had a three-day history of perirectal pain. States that he can feel a mass down there. It is getting bigger and causing more discomfort. PMH: Negative PSHx: Previous I and D of perirectal abscess SOC: Allergic to codeine SYS REVIEW: No cough, wheeze, shortness of breath. No chest pain or palpitations. Denies any urinary complaints O/E awake alert vital signs are stable HEENT: Nonicteric Chest: Chest movement equal bilaterally ABD: Soft nontender Rectal: Inspection reveals a perirectal abscess no digital exam was done due to pain LOCO: Intact DATA: CT scan confirms perirectal abscess IMPRESSION: Perirectal abscess PLAN: I will take him to the operating room for an incision, drainage, sharp debridement of this perirectal abscess. The risks of this procedure have been discussed. The possibility of bleeding, infection, recurrence and need for further surgeries and procedures was described. The need for a colonoscopy in 4-6 weeks was also emphasized. He understands and wants to proceed.
[2021-01-22] MEDS ORDERED: BUPIVACAINE 0.5% PF 10 ML VIAL ONE (12:19)
[2021-01-22] MEDS ORDERED: LIDOCAINE 2% MPF 5 ML VIAL ONE (12:24)
[2021-01-22] MEDS ORDERED: FENTANYL CITR 100 MCG/2 ML ONE (12:24)
[2021-01-22] MEDS ORDERED: propofoL 200 MG/20 ML VIAL IV ONE (12:24)
[2021-01-22] MEDS ORDERED: MIDAZOLAM HCL 2 MG/2 ML INJ ONE (12:25)
[2021-01-22] MEDS ORDERED: KETOROLAC 30 MG/ML INJ ONE (12:26)
[2021-01-22] MEDS ORDERED: dexAMETHasone 10 MG/ML VIAL ONE (12:26)
[2021-01-22] MEDS ORDERED: ONDANSETRON 4 MG/2 ML VIAL ONE (12:26)
[2021-01-22] MEDS ORDERED: KETAMINE HCL 500 MG/5 ML VIAL ONE (12:44)
--- NOTE | 2021-01-22 13:43 | P.OP ---
Preoperative diagnosis: Perirectal abscess Postoperative diagnosis: The same Primary procedure: Incision, drainage, sharp debridement of perirectal abscess Anesthesia: General Estimated blood loss: Less than 10 cc Specimen: None were sent Operative Technique: The patient was brought to the operating room placed supine on the table. After the induction of adequate general endotracheal anesthesia, the area of the perineum was prepped with a Betadine solution, he was draped in usual aseptic manner. On the right and perirectal area we could see a large abscess. This was infiltrated with 0.25% Marcaine. A skin incision was made. This brought down through the skin and subcutaneous tissue. We entered this large foul-smelling abscess with necrotic debris. This was sharply debrided using 11 blade. The wou nd was aspirated using the Yankauer suction. After having sharply debrided the necrotic deep tissue with any 11 cutting surgical blade, a 2. Nylon was placed into the wound and brought out more laterally the keep the wound open and draining during the postoperative period. At the end of the procedure the patient was in a stable condition when sent to the recovery room. Needle sponge instrument count were correct.
--- NOTE | 2021-01-22 15:45 | P.DS ---
Admission Date: 01/22/21 Discharge Date: 01/22/21 Primary Care Provider: none Disposition: ROUTINE DISCHARGE Discharge Condition: GOOD Reason for Admission: Perirectal abscess/chest pain Consultations: Surgery-Dr. Burks Cardiology-Dr. Wilks Procedures: COVID: Negative CT Scan: FINDINGS: A 4 x 2 x 2 centimeter oval perirectal abscess is present abutting the posterior rectal anal soft tissues extending into the right side subcutaneous fatty tissues of the gluteal crease. No abnormal air in the fat of the perineum. No other area of abscess or inflammatory stranding. Within the peritoneal and retroperitoneal spaces no mass, inflammatory stranding or other suspicious finding. IMPRESSION: Posterior 4 x 2 x 2 cm perirectal abscess abutting the posterior margin of the distal rectum and anus and extending into the subcutaneous fatty tissues right gluteal crease. Surgery: Preoperative diagnosis: Perirectal abscess Postoperative diagnosis: The same Primary procedure: Incision, drainage, sharp debridement of perirectal abscess Anesthesia: General Estimated blood loss: Less than 10 cc Specimen: None were sent Medical Problem List: Posterior 4 x 2 x 2 cm perirectal abscess abutting the posterior margin of the distal rectum and anus extending into the subcutaneous fatty tissue of the right gluteal crease status post incision, drainage and sharp debridement of perirectal abscess Chest pain, atypical likely GERD Hypertension Elevated liver function Brief History of Present Illness: 40-year-old male with history of hypertension presents emergency department for rectal pain. Patient reports that he has been having a hard time using the restroom for the last couple of days and was straining and then had a severe pain in the rectal area. Patient was evaluated in the emergency department found to have elevated white blood cell count at 12.5, platelet [address] demonstrates posterior 4 x 2 x 2 cm perirectal abscess about in the posterior margin of the distal rectum and anus and extending into the subcutaneous fatty tissues in the right gluteal crease. General surgery was consulted and did see the patient, while patient was in the emergency department after lying down he experienced some chest pain, patient reports pain as squeezing from his abdomen to his neck, reports pain with mildly relieved by sitting up. Patient was admitted for further evaluation and treatment. Hospital Course: Patient was found to have a Posterior 4 x 2 x 2 cm perirectal abscess abutting the posterior margin of the distal rectum and anus extending into the subcutaneous fatty tissue of the right gluteal crease. Patient was admitted for treatment. Patient was seen and evaluated by surgery. Surgery performed incision, drainage and sharp debridement of perirectal abscess. Patient tolerated procedure well. At discharge wound care has been addressed in detail as recommended by surgery. At discharge patient will continue with Bactrim DS twice daily as prescribed by surgery. Patient will follow up with surgery within 1 week to follow up this hospitalization and continue his care. Patient presented with chest pain. Cardiac enzymes unremarkable. Patient seen and evaluated by Cardiology. No cardiac intervention required. Patient with underlying hypertension. Medications have been adjusted. At discharge patient will continue with Norvasc 10 mg daily and losartan 50 mg 1 pill twice daily. Recommend to maintain blood pressure less than 130/80. If blood pressures remain elevated greater than 140/90 , the patient is to contact his PCP for further recommendation as medication may need to be adjusted. Patient with elevated liver function. Hepatitis panel sent. Recommend follow up with PCP to further monitor and address. PCP to follow up on hepatitis panel. Recommend to recheck lab-CMP in 1-2 weeks monitor resolution. Patient likely with GERD. At discharge patient will continue with Protonix 40 mg daily. Vital Signs/Physical Exam: Temp Pulse Resp BP Pulse Ox 98.9 F 73 20 189/109 H 98 01/22/21 07:54 01/22/21 07:54 01/22/21 07:54 01/22/21 07:54 01/22/21 07:54 General: Alert, In no apparent distress, Oriented x3, Cooperative HEENT: Atraumatic Neck: Supple Respiratory: Clear to auscultation bilaterally, Normal air movement Cardiovascular: Normal pulses, Regular rate/rhythm Gastrointestinal: Normal bowel sounds, Soft and benign, Non-distended, No masses, No rebound, No guarding Neurological: Normal speech, Normal strength at 5/5 x4 extr, Normal tone, Normal affect Laboratory Data at Discharge: WBC 12.10 K/uL (4.3-10.9) H 01/22/21 05:15 Hgb 13.8 g/dL (13.6-17.9) 01/22/21 05:15 Hct 39.9 % (39.6-49.0) 01/22/21 05:15 Plt Count 127 K/uL (152-406) L 01/22/21 05:15 Sodium 140 mmol/L (136-145) 01/22/21 05:15 Potassium 3.2 mmol/L (3.5-5.1) L 01/22/21 05:15 BUN 12 mg/dL (7-18) 01/22/21 05:15 Creatinine 0.80 mg/dL (0.55-1.3) 01/22/21 05:15 Glucose 102 mg/dL (74-106) 01/22/21 05:15 Magnesium 2.1 mg/dL (1.8-2.4) 01/22/21 05:15 Total Bilirubin 0.6 mg/dL (0.2-1.0) 01/22/21 05:15 AST 68 U/L (15-37) H 01/22/21 05:15 ALT 94 U/L (12-78) H 01/22/21 05:15 Alkaline Phosphatase 197 U/L (45-117) H 01/22/21 05:15 Troponin I < 0.02 ng/mL (0.0-0.045) 01/22/21 05:15 Triglycerides 113 mg/dL (<150) 01/22/21 05:15 Cholesterol 137 mg/dL (<200) 01/22/21 05:15 HDL Cholesterol 38 mg/dL (40-60) L 01/22/21 05:15 Cholesterol/HDL Ratio 3.61 01/22/21 05:15 Home Medications: Amlodipine [Norvasc*] 10 mg PO DAILY #30 tab 01/22/21 Losartan Potassium 50 mg PO BID #60 tablet 01/22/21 Pantoprazole [Protonix Tab] 40 mg PO DAILY #30 tab 01/22/21 Sulfamethoxazole/Trimethoprim [Bactrim Ds Tablet] 1 each PO BID #14 tablet 01/22/21 New Medications: Sulfamethoxazole/Trimethoprim [Bactrim Ds Tablet] 1 each PO BID #14 tablet Losartan Potassium 50 mg PO BID #60 tablet Amlodipine [Norvasc*] 10 mg PO DAILY #30 tab Pantoprazole [Protonix Tab] 40 mg PO DAILY #30 tab Physician Discharge Instructions: Patient was found to have a Posterior 4 x 2 x 2 cm perirectal abscess abutting the posterior margin of the distal rectum and anus extending into the subcutaneous fatty tissue of the right gluteal crease. Patient was admitted for treatment. Patient was seen and evaluated by surgery. Surgery performed incision, drainage and sharp debridement of perirectal abscess. Patient tolerated procedure well. At discharge wound care has been addressed in detail as recommended by surgery. At discharge patient will continue with Bactrim DS twice daily as prescribed by surgery. Patient will follow up with surgery within 1 week to follow up this hospitalization and continue his care. Patient presented with chest pain. Cardiac enzymes unremarkable. Patient seen and evaluated by Cardiology. No cardiac intervention required. Patient with underlying hypertension. Medications have been adjusted. At discharge patient will continue with Norvasc 10 mg daily and losartan 50 mg 1 pill twice daily. Recommend to maintain blood pressure less than 130/80. If blood pressures remain elevated greater than 140/90 , the patient is to contact his PCP for further recommendation as medication may need to be adjusted. Patient with elevated liver function. Hepatitis panel sent. Recommend follow up with PCP to further monitor and address. PCP to follow up on hepatitis panel. Recommend to recheck lab-CMP in 1-2 weeks monitor resolution. Patient likely with GERD. At discharge patient will continue with Protonix 40 mg daily. Diet: AHA Activity: Ad terrence Followup: NONE,NONE [Primary Care Provider] - Time spent managing pt's care (in minutes): 55
--- NOTE | 2021-01-22 22:28 | EKG ---
Test Date: 2021-01-21 Test Time: 19:15:47 Milk Deliverer: JESUS MEASUREMENT RESULTS: Intervals: Rate: 63 FL: 134 QRSD: 104 QT: 428 QTc: 437 [place]: P: 21 FL: 134 QRS: -26 T: 26 INTERPRETIVE STATEMENTS: Normal sinus rhythm Normal ECG Compared to ECG 11/24/2020 17:26:01 T-wave abnormality no longer present Electronically Signed On 01-22-21 22:25:34 [employer] [employer] [employer] by Branden Wilks
[2021-01-23 10:14] VITALS: BP 142/90; TEMP 97.1
[2021-01-27 02:38] LABS: HBsAG Nonreactive (Nonreactive)
--- NOTE | 2021-01-27 17:19 | CON ---
Date of Consultation: 01/22/2021 Reason For Consultation: Preoperative cardiac clearance for Dr. Burks. The patient was going to ave an incision and drainage of a perirectal abscess. I was asked to clear him because of his histor y of hypertension. The patient denied any cardiac symptoms. Denied any PND, orthopnea, pedal edema, palpitations, or syncope. Denied any chest pain, unexplained nausea, vomiting, diaphoresis, fever, or chills. Past Medical History: Includes hypertension. Allergies: INCLUDE CODEINE. Review of Systems: Negative. Social History: Negative. Family History: Negative. Medications: Include amlodipine and losartan. Physical Examination: Vital Signs: Stable, afebrile. HEENT: Negative. Neck: Supple with no bruit. Chest: Clear to auscultation and percussion. Cardiac: Revealed a regular rhythm and rate. No murmurs, gallops, or rubs. Abdomen: Benign. Extremities: Revealed no clubbing, cyanosis, or edema. Laboratory Data: His EKG is normal. His chest x-ray is normal. His laboratory evaluations were gisela rly unremarkable. Impression And Plan: Hypertension. Normal EKG. Normal x-ray. No cardiac symptoms. Normal cardiac exam. I am comfortable with Mr. Avila having the surgery by Dr. Burks for an I and D of perirectal abscess. I will be available for questions if the need arises. RAFAEL/WALE Voice ID: [id number] Report ID: [id number]
== END 2021-01-22 20:14 | disposition home or self-care (01) | DRG 358 ==
LOC: ER 17:30 → ERHOLD 19:41 → 2ND 21:47 → OBSVTOIN 01-22 08:07
PROVIDERS: ADMIT Family Medicine; ATTEND Family Medicine
PROC: 0JBB0ZZ Excision of Perineum Subcutaneous Tissue and Fascia, Open Approach (ICD-10-PCS; principal; 2021-01-22 10:30)
DX: K61.1 Rectal abscess (principal); I10 Essential (primary) hypertension; K21.9 Gastro-esophageal reflux disease without esophagitis; F17.200 Nicotine dependence, unspecified, uncomplicated; R79.89 Other specified abnormal findings of blood chemistry; Z88.5 Allergy status to narcotic agent; Z79.899 Other long term (current) drug therapy; Z60.2 Problems related to living alone; Z20.822 Contact with and (suspected) exposure to COVID-19
CPT/HCPCS: 36415; 71045; 72193; 80048; 80053; 80061; 80074; 83735; 84132; 84439; 84443; 84484; 85025; 93005; 96365; 96375; 99285; C9113; J0360; J0744; J1100; J2250; J2270; J2405; J2704; J3010; J3480; J7050; J7120; Q9967; U0003

== ENCOUNTER 2021-04-16 19:01 | Emergency (ER) | payer SELFPAY ==
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
--- NOTE | 2021-04-16 20:35 | RAD REPORT ---
EXAM DESCRIPTION: Elaine Single View04/16/2021 8:22 pm CLINICAL HISTORY: Cough COMPARISON: January 2021 FINDINGS: The lungs appear clear of acute infiltrate. The heart is normal size IMPRESSION: No acute abnormalities displayed
[2021-04-16 21:31] LABS: SARS-COV-2 RT PCR NEGATIVE (NEGATIVE)
[2021-04-16 22:05] LABS: Absolute Lymphocytes (CBC) 3.1 K/uL (0.7-4.9); Basophils % 0.9 % (0-1.3); Hematocrit 45.2 % (39.6-49.0); Lymphocytes % 31.2 % (15.3-44.8); MPV 8.6 fL (7.6-11.3); RBC Red Blood Cell Count 4.89 M/uL (4.33-5.43)
[2021-04-16 22:14] LABS: BUN Blood Urea Nitrogen 11 mg/dL (7-18); Bicarbonate 29 mmol/L (21-32); Glucose Level 96 mg/dL (74-106); Potassium 3.1 mmol/L (3.5-5.1); Sodium Level 141 mmol/L (136-145)
--- NOTE | 2021-04-16 22:53 | EDPHYS ---
Physician Documentation [facility] Name: Williams Avila Jr Age: 40 yrs Sex: Male : 1980 Arrival Date: 04/16/2021 Time: 19:07 Bed 2 Private MD: ED Physician Alee Kapadia HPI: 04/16 22:56 This 40 yrs old Male presents to ER via Ambulatory with complaints of Fever, kb Cough, Runny Nose, RIB PAIN. 22:56 The patient or guardian reports cough, that is intermittent, described as mild, with no kb sputum, flu symptoms, low-grade fever. Onset: The symptoms/episode began/occurred 6 day(s) ago. Severity of symptoms: At their worst the symptoms were moderate, in the emergency department the symptoms have improved. Modifying factors: The symptoms are alleviated by nothing, the symptoms are aggravated by nothing. Associated signs and symptoms: Pertinent positives: fever, rhinorrhea. The patient has not experienced similar symptoms in the past. The patient has not recently seen a physician. Pt reports cough, congestion, fever started on Wednesday. States fever went away yesterday. Has had left lower lateral rib pain with cough for a few days. Pt takes amlodipine and losartan for HTN and hasn't taken it today. Pt is asymptomatic of blood pressure. Historical: - Allergies: 19:43 Codeine; em - Home Meds: 19:43 amlodipine oral [Active]; losartan Oral [Active]; em - PMHx: 19:43 Hypertension; em - Immunization history:: Adult Immunizations up to date. - Social history:: Smoking status: Pt states smoke marijuana . ROS: 22:54 Abdomen/GI: Negative for abdominal pain, nausea, vomiting, diarrhea, and constipation. kb 22:54 Constitutional: Positive for chills, fever. 22:54 ENT: Positive for sinus congestion. 22:54 Cardiovascular: Positive for chest pain, with cough, of the left lower lateral ribs. 22:54 Respiratory: Positive for cough. 22:54 All other systems are negative. Exam: 22:56 Constitutional: This is a well developed, well nourished patient who is awake, alert, kb and in no acute distress. Head/Face: Normocephalic, atraumatic. ENT: Moist Mucous membranes Cardiovascular: Regular rate and rhythm with a normal S1 and S2. No gallops, murmurs, or rubs. No pulse deficits. Respiratory: Respirations even and unlabored. No increased work of breathing, no retractions or nasal flaring. Abdomen/GI: Soft, non-tender. No distention Skin: Warm, dry with normal turgor. Normal color. MS/ Extremity: Pulses equal, no cyanosis. Neurovascular intact. Full, normal range of motion. Neuro: Awake and alert, GCS 15, oriented to person, place, time, and situation. Moves all extremities. Normal gait. Psych: Awake, alert, with orientation to person, place and time. Behavior, mood, and affect are within normal limits. Vital Signs: 19:40 BP 184 / 127; Pulse 82; Resp 20; Temp 98.2; Pulse Ox 100% ; Weight 83.91 kg; Height 5 em ft. 6 in. (167.64 cm); Pain 8/10; 21:24 BP 191 / 129; Pulse 73; Resp 16; Pulse Ox 100% ; jm8 22:24 BP 172 / 106; Pulse 71; Resp 16; Pulse Ox 100% on R/A; jm8 19:40 Body Mass Index 29.86 (83.91 kg, 167.64 cm) em MDM: 19:48 Patient medically screened. kb 22:54 Data reviewed: vital signs, nurses notes. Data interpreted: Pulse oximetry: on room air kb is 100 %. Interpretation: normal. Counseling: I had a detailed discussion with the patient and/or guardian regarding: the historical points, exam findings, and any diagnostic results supporting the discharge/admit diagnosis, lab results, radiology results, the need for outpatient follow up, a family practitioner, to return to the emergency department if symptoms worsen or persist or if there are any questions or concerns that arise at home. 04/16 19:51 Order name: Chest Single View XRAY; Complete Time: 20:40 kb 04/16 21:32 Order name: COVID-19/FLU A+B; Complete Time: 21:37 EDMS 04/16 21:32 Order name: CBC with Diff; Complete Time: 22:12 kb 04/16 21:32 Order name: Basic Metabolic Panel; Complete Time: 22:24 kb 04/16 21:20 Order name: Vital Signs; Complete Time: 21:24 kb 04/16 21:32 Order name: IV Start; Complete Time: 22:05 kb Administered Medications: 21:40 Drug: NS 0.9% 1000 ml Route: IV; Rate: 1000 ml; Site: right antecubital; ea 21:40 Drug: cloNIDine 0.1 mg Route: PO; ea 23:01 Follow up: Response: No adverse reaction; Blood pressure is lowered jm8 Disposition: 04/16/21 22:52 Discharged to Home. Impression: Acute upper respiratory infection, unspecified, Essential (primary) hypertension. - Condition is Stable. - Discharge Instructions: Upper Respiratory Infection, Adult, Vmis-rt-Tnci, Hypertension, [id number]. - Work release form, Medication Reconciliation Form, Thank You Letter, Antibiotic Education, Prescription Opioid Use form. - Follow up: Emergency Department; When: As needed; Reason: Worsening of condition. Follow up: Private Physician; When: 2 - 3 days; Reason: Recheck today's complaints, Continuance of care, Re-evaluation by your physician. Signatures: Dispatcher [employer] EDOR Elisabet Thorpe, MOTION PICTURE DIRECTOR-C MOTION PICTURE DIRECTOR-Maximus Smith, RN RN Harini Boyer RN RN Lui Parks RN RN jm8 Corrections: (The following items were deleted from the chart) 20:46 19:51 Influenza Screen (A \T\ B)+BA.LAB.BRZ ordered. [facility] 20:47 19:51 CORONAVIRUS+MR.LAB.BRZ ordered. [facility] 23:02 22:52 04/16/2021 22:52 Discharged to Home. Impression: Acute upper respiratory jm8 infection, unspecified; Essential (primary) hypertension. Condition is Stable. Forms are Medication Reconciliation Form, Thank You Letter, Antibiotic Education, Prescription Opioid Use. Follow up: Emergency Department; When: As needed; Reason: Worsening of condition. Follow up: Private Physician; When: 2 - 3 days; Reason: Recheck today's complaints, Continuance of care, Re-evaluation by your physician. kb
--- NOTE | 2021-04-16 22:53 | ER ---
Nurse's Notes [facility] Name: Williams Avila Jr Age: 40 yrs Sex: Male : 1980 Arrival Date: 04/16/2021 Time: 19:07 Bed 2 Private MD: Diagnosis: Acute upper respiratory infection, unspecified;Essential (primary) hypertension Presentation: 04/16 19:40 Chief complaint: Patient states: Runny nose and cough for three days, NVD began today. em Pt states is also having Left sided rib pain. Coronavirus screen: Client denies travel out of the [place] in the last 14 days. Client presents with at least one sign or symptom that may indicate coronavirus-19. Standard/surgical mask placed on the client. Ebola Screen: Patient negative for fever greater than or equal to 101.5 degrees Fahrenheit, and additional compatible Ebola Virus Disease symptoms. Initial Sepsis Screen: Does the patient meet any 2 criteria? No. Patient's initial sepsis screen is negative. Does the patient have a suspected source of infection? No. Patient's initial sepsis screen is negative. Risk Assessment: Do you want to hurt yourself or someone else? Patient reports no desire to harm self or others. Onset of symptoms was April 13, 2021. 19:40 Method Of Arrival: Ambulatory em 19:40 Acuity: RADHA 3 em Triage Assessment: 19:43 General: Appears in no apparent distress. comfortable, Behavior is calm, cooperative. em Pain: Complains of pain in Left side of rib. Historical: - Allergies: 19:43 Codeine; em - Home Meds: 19:43 amlodipine oral [Active]; losartan Oral [Active]; em - PMHx: 19:43 Hypertension; em - Immunization history:: Adult Immunizations up to date. - Social history:: Smoking status: Pt states smoke marijuana . Screenin:26 Abuse screen: Denies threats or abuse. Nutritional screening: No deficits noted. ea Tuberculosis screening: No symptoms or risk factors identified. Fall Risk None identified. Assessment: 20:25 General: Appears in no apparent distress. Behavior is calm, cooperative, appropriate ea for age. Pain:. Neuro: Level of Consciousness is awake, alert, obeys commands, Oriented to person, place, time. Cardiovascular: Patient's skin is warm and dry. Respiratory: Airway is patent Respiratory effort is even, unlabored, Respiratory pattern is regular, symmetrical. Derm: Skin is pink, warm \T\ dry. 21:55 Reassessment: Patient and/or family updated on plan of care and expected duration. Pain ea level reassessed. Patient is alert, oriented x 3, equal unlabored respirations, skin warm/dry/pink. 22:49 Reassessment: Patient and/or family updated on plan of care and expected duration. Pain ea level reassessed. Patient is alert, oriented x 3, equal unlabored respirations, skin warm/dry/pink. Vital Signs: 19:40 BP 184 / 127; Pulse 82; Resp 20; Temp 98.2; Pulse Ox 100% ; Weight 83.91 kg; Height 5 em ft. 6 in. (167.64 cm); Pain 8/10; 21:24 BP 191 / 129; Pulse 73; Resp 16; Pulse Ox 100% ; jm8 22:24 BP 172 / 106; Pulse 71; Resp 16; Pulse Ox 100% on R/A; jm8 19:40 Body Mass Index 29.86 (83.91 kg, 167.64 cm) em ED Course: 19:07 Patient arrived in ED. cf2 19:42 Triage completed. em 19:43 Arm band placed on. em 19:48 Elisabet Thorpe FNP-C [facility] kb 19:48 Alee Kapadia MD is Attending Physician. kb 20:21 Chest Single View XRAY In Process Unspecified. EDMS 20:25 Harini Leone, LUIS EDUARDO is Primary Nurse. ea 20:26 Patient has correct armband on for positive identification. Bed in low position. Call ea light in reach. Side rails up X2. 21:45 Inserted saline lock: 20 gauge in right antecubital area, using aseptic technique. jm8 22:04 No provider procedures requiring assistance completed. jm8 23:02 IV discontinued, intact, bleeding controlled. jm8 Administered Medications: 21:40 Drug: NS 0.9% 1000 ml Route: IV; Rate: 1000 ml; Site: right antecubital; ea 21:40 Drug: cloNIDine 0.1 mg Route: PO; ea 23:01 Follow up: Response: No adverse reaction; Blood pressure is lowered jm8 Outcome: 22:52 Discharge ordered by . kb 23:01 Discharged to home ambulatory. jm8 23:01 Condition: good 23:01 Discharge instructions given to patient, Instructed on discharge instructions, follow up and referral plans. medication usage, Demonstrated understanding of instructions, follow-up care, medications. 23:02 Patient left the ED. jm8 Signatures: Dispatcher [employer] EDVA Elisabet Thorpe, CASSANDRA ARCHITECT-C CASSANDRA ARCHITECT-Maximus Smith, RN RN Harini Boyer RN Margot Mullen ea [facility] Lui Lee, RN LUIS EDUARDO jm8
[2021-04-17 01:24] VITALS: TEMP 98.2; O2SAT 100
[2021-04-17 01:28] VITALS: BP 172/106
== END 2021-04-16 23:02 | disposition home or self-care (01) ==
LOC: ER 19:01
DX: J06.9 Acute upper respiratory infection, unspecified (principal); I10 Essential (primary) hypertension; Z20.822 Contact with and (suspected) exposure to COVID-19
CPT/HCPCS: 0240U; 36415; 71045; 80048; 85025; 99283

== ENCOUNTER 2021-07-29 18:32 | Emergency (ER) | payer SELFPAY ==
--- OUTSIDE RECORDS SUMMARY | 2021-07-29 18:39 | XMS REPORT | Continuity of Care Document ---
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 CONTRASTAfter hours services performed at 0225 hours. This exam was performed hours of the patient's arrival to [place].LOCATION: [id number]: Headache.COMPARISON: None.TECHNIQUE: Volumetric CT acquisition of the [...] code = PBNP) 26 pg/mL 0-125 TROPONIN [id number] 02:34:00 Test Item Value Reference Range Interpretation Comments TROPONIN I (test code = A84) <0.015 ng/mL 0.000-0.045 CARDIAC GCGAQQY4584-02-30 02:34:00 Test Item Value Reference Range Interpretation Comments TROPONIN I (test code = A84) <0.015 ng/mL 0.000-0.045 CKMB (test code = A49) 1.2 ng/mL <=3.6 CPK (test code = 32A) 122 IU/L 39-308 AMYLASE AND LRYFAF5681-98-63 02:33:00 Test Item Value Reference Range Interpretation Comments AMYLASE (test code = 10A) 29 U/L 28-100 LIPASE (test code = 60A) 123 IU/L 73-393 COMPREHENSIVE METABOLIC NNS4284-03-71 02:33:00 Test Item Value Reference Range Interpretation [...] (test code = 31A) 40 IU/L <=78 THWWULEBM9650-81-89 02:28:00 Test Item Value Reference Range Interpretation Comments MAGNESIUM (test code = 48A) 2.0 mg/dL 1.8-2.4 PRO TIME AND [id number] 02:27:00 Test Item Value Reference Range Interpretation [...] Code is ANTI-XA XR CHEST 1 VIEW WPTDSHDM8720-20-23 02:15:38Exam: Chest portable erectLocation: E2Yjhkvqc: hypertensionComparison: NoneFindings:The lungs are clear. No infiltrate [...] MORPH (test code = RBCMOR) NORMAL DRUG MNURZA1873-63-98 20:19:00Positive *ABN*(02/11/17 3:19 PM)[facility] PSVLTU9969-07-13 20:19:00Negative *NA*(02/11/17 3:19 PM)[facility] JHACSQ8978-28-51 20:19:00Negative *NA*(02/11/17 3:19 PM)[facility] YAUXPP9340-15-78 20:19:00Negative *NA*(02/11/17 3:19 PM)[facility] IRARDH6083-50-46 20:19:00See Note (02/11/17 3:19 PM)[facility] SCREEN 2017-02-11 20:19:00Negative *NA*(02/11/17 3:19 PM)[facility] 2017-02-11 20:19:00Negative *NA*(02/11/17 3:19 PM)[facility] 2017-02-11 20:19:00Positive *ABN*(02/11/17 3:19 PM)[facility] INHOY8820-25-35 20:19:001.011[facility] SEHWH6665-82-33 20:19:001 [facility] CJSMX2181-82-92 20:19:00<1[facility] PLAYV4332-13-64 20:19:00Negative (02/11/17 3:19 PM)[facility] BRGPJ4467-86-04 20:19:00Negative (02/11/17 3:19 PM)[facility] AZBVX7173-38-45 20:19:00Negative *NA*(02/11/17 3:19 PM)[facility] ABXTA6137-48-54 20:19:00Negative (02/11/17 3:19 PM)[facility] TPLMQ5811-04-63 20:19:007.0[facility] DSKYG4208-22-50 20:19:00 Clear (02/11/17 3:19 PM)[facility] YCJOJ2826-87-96 20:19:00Light Yellow *NA*(02/11/17 3:19 PM)[facility] EGQXL3657-71-45 18:31:13633 [facility] ATJZN1917-60-77 18:31:05604Fvnawuih [facility]annCHEM PANEL 2017-02-11 18:31:0017[facility] YHQSR3697-65-65 18:31:000.97[facility] ZEVOE0209-44-45 18:31:91430Gzpsyafc [facility]CHE[facility] FSHRP1293-81-56 18:31:06007Zqmtmfbf [facility]CHE[facility] XZQSK4031-81-45 18:31:0029[facility] EJDVW9602-51-44 18:31:004.2[facility] NVXZG4309-15-00 18:31:007.7 [facility] QWUZI5858-08-68 18:31:0011.2[facility]annHEMATOLOGY 2017-02-11 18:31:0013.0[facility] OnzuxwyWWKHLVZWEB7913-43-48 18:31:0014.4[facility] PeypddnNUKBPBQTXU2946-06-87 18:31:0043.2[facility] AmcqaaqXLXHAEIIDA3450-83-90 18:31:004.58[facility] LtbtoogXIBSGLDERZ4755-25-79 18:31:008.6[facility] PTMLWWDVUJ4876-85-05 18:31:0094.4[facility] EoxozkfVBNEJKJKSX2585-88-14 18:31:00 14.1[facility] InqojrpRBLZXDMDKQ4691-12-51 18:31:15081Vquqyqix [facility]annHEMATOLOGY 2017-02-11 18:31:00 Test Item Value Reference Range Interpretation Comments MCH (test code = MCH) 31.4 pg 27.0-31.0 [facility] EpacdgwZFZCMGPXNV4975-69-29 18:31:0033.3[facility]annHEMATOLOGY 2017-02-11 18:31:000.1[facility] RuarnklSGJYCWQOSB9419-61-52 18:31:000.2[facility] RleucitGOLNXBUCWW8836-00-06 18:31:002.9[facility] FlrtdnrXOJVZRNYNJ3021-04-83 18:31:000.8[facility] YezajngVFGHUBUWFZ8979-46-22 18:31:009.0[facility] CPQFUOHTRU5483-55-59 18:31:000.5[facility] WjbrojrTLFNLYOMEG5888-98-18 18:31:00 22.5[facility] FvpxhdhRJEOYPUSKN7563-70-87 18:31:006.2[facility]annHEMATOLOGY 2017-02-11 18:31:0069.5[facility] OhpskozDUGCYPRPZV8842-07-24 18:31:001.3[facility] YuzbkjuVXKWMTMEWG5803-65-13 18:31:00Negative (02/11/17 1:31 PM)[facility] HXWCGIIZTZMP2972-57-01 19:37:0014.8[facility] EisnveqUZZQBVUMQRYN9637-19-73 19:37:94402Dszvdbbj NrxtlwqPWTLYEHUSPPT1906-83-71 19:37:34081Wonphvvf [facility] CNICXMUYLQJH5821-57-12 19:37:0025[facility] RxgnwhkMYUFXISPRPYG9171-67-02 19:37:00 3.8[facility] FdfcigdUOHIJSSAYNUH5416-86-71 19:37:008.4[facility] GWIRVITHIQEL8156-25-44 19:37:38593Kolkrafr WalhygwHSQPTXYRWBAZ5635-71-02 19:37:000.88[facility] GtzcbnkLWRMQURDVMBP5109-40-80 19:37:008[facility] USRCRSUMRYUQ9740-30-78 19:37:19869Iibxbhpw OomtrpwZTWVZRBTXL7355-33-21 19:37:00 6.6[facility] RdwfmieFPFTZPVCIY1748-63-27 19:37:0061.5[facility]annHEMATOLOGY 2017-01-28 19:37:0029.4[facility] UocpbyrRCRULCEZVF8320-16-29 19:37:000.5[facility] ZainlizIKTYVLLRND3819-57-75 19:37:007.4[facility] SllixppRCTTIRWQVK9541-28-20 19:37:003.5[facility] JqfwwycEBRXKYPCCK8536-55-15 19:37:000.8[facility] VPLLBYUPXU6988-16-04 19:37:002.0[facility] OilvimxSWQUNPEXND4766-03-97 19:37:000.1 [facility] UwhhksdODCRVUMYSZ8722-89-62 19:37:000.2[facility]annHEMATOLOGY 2017-01-28 19:37:0093.3[facility] AkcuimiEORMNSXVPC5540-41-94 19:37:0034.0[facility] BvzosifMYYIYOPTUJ4851-81-38 19:37:00 Test Item Value Reference Range Interpretation Comments MCH (test code = MCH) 31.7 pg 27.0-31.0 [facility] BfdzbngEIBAYJKOIY3098-94-28 19:37:0014.1[facility]annHEMATOLOGY 2017-01-28 19:37:50768Snslfzlu ViayopjCLWSLLUUYM5960-25-63 19:37:008.2[facility] ZjmuewhHBDOGLDNIV5310-30-21 19:37:0012.0[facility] ZjfouixYXFBTQQDOF2196-95-43 19:37:0041.8[facility] SreakhyGSJYODYRCZ2350-74-07 19:37:004.48[facility] IQHANHLCSW7201-18-67 19:37:0014.2[facility] HermannCOMPREHENSIVE METABOLIC LUCAS 2017-01-28 10:03:00 Test Item Value Reference Range Interpretation [...] (test code = 31A) 22 IU/L <=78 URINALYSIS WITH IITGP5768-78-50 10:03:00 Test Item Value Reference Range Interpretation [...] UR (test code = USPERM) /HPF NONE DRUGS OF RURKP0592-80-75 10:00:00 Test Item Value Reference Range Interpretation [...] ng/mL Opiates 2000 ng/mL PRO TIME AND KSR5269-02-71 09:56:00 Test Item Value Reference Range Interpretation [...] (test code = RBCMOR) NORMAL URINE AND HCSUK1381-92-69 19:33:00Negative (06/14/16 2:33 PM)[facility] AND QSZRP0773-48-11 19:33:00Negative (06/14/16 2:33 PM)[facility] URINE AND LKXXS4999-72-87 19:33:000.2[facility] GZZQQ3025-57-82 19:33:00Negative (06/14/16 2:33 PM)[facility] WNFVN6788-85-92 19:33:00Clear (06/14/16 2:33 PM)[facility] BISBQ4729-45-29 19:33:00 Test Item Value Reference Range Interpretation Comments UA Spec Grav (test code = UA Spec 1.020 1 Grav) [facility] MEIOX3749-22-23 19:33:00Negative *NA*(06/14/16 2:33 PM) [facility] UIIHU2351-34-45 19:33:00 Test Item Value Reference Range Interpretation Comments UA pH (test code = UA pH) 5.5 1 5.0-8.0 [facility] UYXVH7026-69-63 19:33:00Yellow *NA*(06/14/16 2:33 PM) [facility] CFAQOB9652-41-63 19:32:00Negative *NA*(06/14/16 2:32 PM) [facility] KMPYIE5934-17-55 19:32:00See Note (06/14/16 2:32 PM)[facility] ZTAJYS6090-84-11 19:32:00Negative *NA*(06/14/16 2:32 PM)[facility] HCJLEK4822-46-93 19:32:00Negative *NA*(06/14/16 2:32 PM)[facility] YOVZSN0388-31-71 19:32:00Negative *NA*(06/14/16 2:32 PM)[facility] LFOXFS3007-70-24 19:32:00Positive *ABN*(06/14/16 2:32 PM)[facility] VXMTFU9093-70-15 19:32:00Positive *ABN*(06/14/16 2:32 PM)[facility] IBSBKM1524-53-92 19:32:00Negative *NA*(06/14/16 2:32 PM)[facility] NrlqzbfTQNZTBTPLJGF6136-27-31 19:16:59074Arhshvkb ZibuhieUAITVNRKSPCY8005-57-59 19:16:0026[facility] EqmcgtbCVGMXJVVXZUT0509-56-21 19:16:007.7[facility] XGPNYQECCOMR0738-27-16 19:16:12065Nsbhqxcl LqoynkwUVPIGDUCVPEC7147-62-91 19:16:003.7[facility] QuqwzxiOGGCHGGUEUJP2964-54-68 19:16:000.74[facility] JRELULZKPHDA2626-29-78 19:16:64802Osqxlhsy DrrmmygSQVFYXKLGKOD6693-17-53 19:16:0097[facility] FnkcktjLFXLDMDDSIJM8080-06-78 19:16:0012[facility] IAOIWRRWACDH2414-56-63 19:16:0011.7[facility] ZgahobxSBANEEBVWO1673-56-86 19:16:00 1.1[facility] XjstyvkWLWSCMIIPZ0523-38-59 19:16:005.6[facility]annHEMATOLOGY 2016-06-14 19:16:0069.2[facility] VamnfiiBNFPTQIATG3300-87-46 19:16:0023.7[facility] AkcyoslEWTPCEAWAR2537-98-20 19:16:000.4[facility] ZytaoauRKDCMZIPJP5920-87-68 19:16:000.6[facility] RxchpefUJYGMHJNZO9387-17-45 19:16:008.0[facility] WWZNYQPNLF8289-27-89 19:16:002.7[facility] EawtpkkVMDUXELRGF3805-24-85 19:16:000.0 [facility] WlaegrdDRLNWJZEIF7968-39-26 19:16:000.1[facility]annHEMATOLOGY 2016-06-14 19:16:0013.9[facility] UovcrsyMWWALZMNDB7625-68-88 19:16:0093.7[facility] AaemoqdABQLNREIWH5809-86-33 19:16:70661Hcloyizd FwxckqtZDMPQIWZNI9759-47-09 19:16:008.2[facility] FfzgqurJZTMABPHWI7960-11-75 19:16:00 Test Item Value Reference Range Interpretation Comments MCH (test code = MCH) 31.3 pg 27.0-31.0 [facility] GxjljihANVZLJPEZJ0936-98-23 19:16:0033.4[facility]annHEMATOLOGY 2016-06-14 19:16:0013.5[facility] SvrsjbiMDMBVESHXV5016-78-03 19:16:004.30[facility] QodzkguPKVXHICIPF0982-51-47 19:16:0011.6[facility] DyaefvcSDEHMEAUCX5087-97-05 19:16:0040.3[facility]annCHEM CXRCN3422-19-46 18:35:95337Lrmgchsj HermannCHEM UKRJZ7157-37-47 18:35:75688Fbdetnln [facility]CHE[facility] MIGZL2708-96-15 18:35:000.80 [facility] FWXES1711-29-96 18:35:0013[facility]annCHE[facility] PANEL 2016-03-22 18:35:64493Mboxsbxr [facility]annCHEM OWHWA7627-67-18 18:35:008.1[facility]annCHE[facility] ETZTQ2848-19-69 18:35:0026[facility]ann[facility] EYAEN1012-65-93 18:35:35827Uprgmhxk [facility]CHE[facility] QJAVC1509-12-85 18:35:003.7[facility]annCHE[facility] PPOZQ1323-88-57 18:35:0010.7[facility] FatcgmfHAHVHADLCZ7194-56-71 18:35:00 Test Item Value Reference Range Interpretation Comments MCH (test code = MCH) 31.2 pg 27.0-31.0 [facility] RuylrthGISKTKHHAI3670-80-97 18:35:0092.1[facility]annHEMATOLOGY 2016-03-22 18:35:0041.0[facility] MyruzswUWQSTDUUJN8581-24-87 18:35:0013.9[facility] AzubfheDCKLCKGEUD6488-47-96 18:35:0012.8[facility] CensiwuDESBAYFYZL9953-38-03 18:35:004.45[facility] QfunuhhMRVNGFDCVF5236-81-63 18:35:21986Nzfwznuu [facility] XNXLGHCATY1661-95-71 18:35:0013.8[facility] ChhygprUVIMVZEACF1252-20-95 18:35:00 33.9[facility] VdfavsnMIPMPOKSSU6704-85-37 18:35:008.7[facility]annHEMATOLOGY 2016-03-22 18:35:0067.1[facility] LimtbasQQFARHVNHC6524-08-25 18:35:0023.6[facility] ClluffvOTQWGGZQKZ4252-88-20 18:35:000.0[facility] LwkzckzBYEGCQMCXQ0199-72-66 18:35:001.0[facility] PdapekbIUTWRXBZOD8467-16-46 18:35:000.2[facility] TLOWPIKCGT3913-11-77 18:35:008.6[facility] HnhtjpjVSVLYPTUMV4485-90-38 18:35:003.0 [facility] BwtxgtkDKMLKGTPXH1027-32-13 18:35:007.6[facility]annHEMATOLOGY 2016-03-22 18:35:001.4[facility] BrentedJDUHHXRBNV4188-92-76 18:35:000.3[facility]annCARDIAC SRRGMSS6880-48-96 20:19:00<0.02[facility]annCARDIAC ENZYMES 2016-02-18 20:19:000.7[facility]annCARDIAC POYZNQT7452-52-65 20:19:27017 [facility]annCARD[facility] XXTVGSK7238-25-39 20:19:000.6[facility]annCHEM PANEL 2016-02-18 20:19:69184Nwodzqxa HermannCHEM SETZQ0762-16-03 20:19:0017[facility]annCHE[facility] SFYPO4260-92-18 20:19:004.2[facility]annCHE[facility] PGEWW0723-63-99 20:19:001.0[facility]annCHE[facility] MZHEV0195-13-33 20:19:0011.7[facility]annCHE[facility] FEKEE2714-11-46 20:19:0022[facility]annCHE[facility] YMLXC0248-42-33 20:19:000.4 [facility]annCHE[facility] CRMCC4199-24-35 20:19:94235Xmrhnfpm [facility]annCHEM PANEL 2016-02-18 20:19:000.95[facility]annCHE[facility] XGSOY3851-84-44 20:19:01708Ssabvghc [facility]CHE[facility] MWGXM5837-01-54 20:19:0016[facility]annCHE[facility] OOYKX3386-47-70 20:19:58822Fqtfpsdv [facility]CHE[facility] OCNXT0803-96-23 20:19:004.1[facility]annCHE[facility] MRBSV4368-72-71 20:19:008.3[facility]annCHE[facility] FGQQU0723-84-21 20:19:0051 [facility]annCHE[facility] FASIB0006-05-29 20:19:008.5[facility]annCHEM PANEL 2016-02-18 20:19:39119Etisrpnm [facility]annCHEM SUSSR9389-91-30 20:19:003.7[facility]annCHEM OFICF6144-82-66 20:19:0028[facility] QtlcenpDNEZQDAKOL9180-48-11 20:19:0033.6[facility] CnxidbvVZTXHHIAQC4061-72-99 20:19:41946Lruiaenw [place] OEHRBWUIRX3288-19-67 20:19:008.4[facility] QrsqnweZYSZIBQEHG6525-57-29 20:19:00 13.2[facility] UyfvhsrKMBOQAOWEF3099-25-03 20:19:0011.9[facility]annHEMATOLOGY 2016-02-18 20:19:004.84[facility] MrarygtLQHFZZNGLE3510-70-51 20:19:0014.9[facility] CfczaidTEHXYSQFZW3855-15-15 20:19:00 Test Item Value Reference Range Interpretation Comments MCH (test code = MCH) 30.9 pg 27.0-31.0 [facility] YioxzsjNVWLRLOVDC4374-96-75 20:19:0044.5[facility]annHEMATOLOGY 2016-02-18 20:19:0091.9[facility] VrqabseIQOMGRZSSO8575-80-61 20:19:00 Test Item Value Reference Range Interpretation Comments PT (test code = PT) 12.2 s 12.0-14.7 [facility] DszwqkvJRSRXLAXYF2124-73-20 20:19:000.88[facility]annHEMATOLOGY 2016-02-18 20:19:00 Test Item Value Reference Range Interpretation Comments PTT (test code = PTT) 30.2 s 22.9-35.8 [facility] RwcjuyiDOTQSGZXKK7432-63-16 20:19:000.5[facility]annHEMATOLOGY 2016-02-18 20:19:000.1[facility] TgvqrupBJDQEJYQXF7335-45-11 20:19:002.5[facility] AftfqudQVXYNNVABS9653-89-51 20:19:000.0[facility] PpawvotFZNABUQRXY3288-24-94 20:19:004.4[facility] SzmicfwWCRRLEWMZS7256-52-02 20:19:0021.1[facility] XTCGOMYYQP4473-65-18 20:19:008.7[facility] KaelvidOVLLUIQBHP2646-27-89 20:19:000.4 [facility] HroexkbSSTHYXNMHE6939-26-28 20:19:000.9[facility]annHEMATOLOGY 2016-02-18 20:19:0073.2[facility] RdyuwkjJKMBHVERZQ1834-44-75 20:19:00Negative (02/18/16 3:19 PM)[facility] DJJQJQ1962-72-45 20:07:00See Note (02/09/16 3:07 PM)[facility] CECAWT2213-30-89 20:07:00Positive *ABN*(02/09/16 3:07 PM)[facility] JXWOGE8158-65-54 20:07:00Negative *NA*(02/09/16 3:07 PM)[facility] YHPNMD8147-77-63 20:07:00Positive *ABN*(02/09/16 3:07 PM) [facility] LNUQYV2425-64-24 20:07:00Negative *NA*(02/09/16 3:07 PM) [facility] QLUFWY7153-66-73 20:07:00Negative *NA*(02/09/16 3:07 PM) [facility] DFFIPX5523-64-40 20:07:00Negative *NA*(02/09/16 3:07 PM) [facility] SJYTMF1481-37-05 20:07:00Negative *NA*(02/09/16 3:07 PM) [facility] AmmuumqGFTJIYAOVNBW7139-76-39 16:46:0010.5[facility] HermannELECTROLYTES 2016-02-09 16:46:83941Fhkgdvbu KpjiaecRLMZIAGKWPGL3836-76-83 16:46:008.1[facility] ZxvbwvzAUYTHSIHRPMD7586-57-13 16:46:51906Erxsyohw NcmsegfFAYLVCNZDFNC1567-18-88 16:46:0028[facility] AucwryrFKLBEUZJAXDP7538-54-70 16:46:32455Zxhodfso [place] VJAMYIVNYQRX0667-16-73 16:46:003.5[facility] PzbqeefPIZTNOCDIYAO8506-88-91 16:46:0016[facility] BwljrtbPMCZDFNHYGFH4699-17-20 16:46:000.81[facility] [place] QGPVLTIXNJAR2007-83-19 16:46:65888Pvsswlle QuebaqzQAWVMWWYOG8208-87-83 16:46:00 24.4[facility] SezuphmYXZWQDRETR4571-55-23 16:46:001.2[facility]annHEMATOLOGY 2016-02-09 16:46:006.2[facility] HeulgykOKJZHIBUPQ6038-23-43 16:46:0067.8[facility] SaabvibPCFZBFNZAU4022-05-91 16:46:008.6[facility] YbauvyaCKJEXQBHLR8015-00-10 16:46:000.4[facility] QhiiggeBPBPOSSPHW5012-42-00 16:46:000.8[facility] [place] AXQNDTWWUR5732-37-37 16:46:000.1[facility] RnqgbxmDKZQKPYACY3123-53-75 16:46:003.1 [facility] NtzwshfJZCWUWIGPR5513-31-39 16:46:000.0[facility]annHEMATOLOGY 2016-02-09 16:46:0012.7[facility] FljwxbrGRLHACDJFQ0399-14-98 16:46:004.69[facility] PlpnwoaSSCQABVOLD8864-00-76 16:46:0014.4[facility] LpkpkocGCYSWKHYXL4590-82-31 16:46:0043.1[facility] EuutzroQZMIKLPKJH2646-52-83 16:46:0092.0[facility] BYIKIBFWAL1025-16-71 16:46:0012.8[facility] WuzuajuRJUZDOKKTQ8801-94-07 16:46:00 8.6[facility] IfgdnhlELQOUHRJSE6784-05-32 16:46:57372Rlcoqisp HermannHEMATOLOGY 2016-02-09 16:46:00 Test Item Value Reference Range Interpretation Comments MCH (test code = MCH) 30.6 pg 27.0-31.0 [facility] JnxcbdjTOUQHQIYBP6873-22-65 16:46:0033.3[facility]annCHEMISTRY 2012-08-23 17:00:0085[facility] QzkgrwjLZLSBNQXC5160-26-99 17:00:00<0.02 [facility] XpxnxrvRGJIOQYWB8007-70-53 17:00:00<0.6[facility] HermannCHEMISTRY 2012-08-23 17:00:0083[facility] AodfchvKDFNBXYSA7418-12-17 17:00:004.0[facility] JmnuvjtSLJWIZPMA6516-19-11 17:00:003.9[facility] PprnxyrUOQHNPTII1686-33-25 17:00:89174Jymnnxqf UkghjmgTUQJMFMGV6864-26-45 17:00:001.0[facility] YUPOZNMWY0473-67-57 17:00:003.8[facility] UdhbdvqOPAJUQVJJ1788-92-46 17:00:0024 [facility] MezcgthRPIASMOTN8768-71-91 17:00:47187Erdslaes HermannCHEMISTRY 2012-08-23 17:00:007.7[facility] PvrbroyVMKRLCGWN5858-07-86 17:00:008.6[facility] AidwjffEMDILMVKX2428-43-33 17:00:0034[facility] LbinuvaHCILKVRSV5192-38-41 17:00:0012[facility] MrkhqhzLBEOSLHKL7784-79-78 17:00:000.4[facility] [place] SKTEGLIGB3713-37-86 17:00:0016.0[facility] SrjyrlyTXZXTILHB5902-32-38 17:00:0024 [facility] YmhrubpKZONOXGQB5241-74-82 17:00:0099[facility] HermannCHEMISTRY 2012-08-23 17:00:57116Akqzivlr XgyqrvmUJDOKXWKH4737-41-95 17:00:000.7[facility] TursoorJKLYGQRQH6170-72-45 17:00:0017[facility] KainhmgVBGTBGIVA3395-49-40 17:00:00<0.5[facility] FpypzepZRDTBDYVSG7522-84-64 17:00:000.7[facility] [place] ZCGZXNTWKY1927-06-51 17:00:000.0[facility] OuodadmCDPCZJGTTP6877-11-19 17:00:000.2 [facility] AynbdyyFZVMRBGUDS7861-42-06 17:00:0030.2[facility] 2012-08-23 17:00:005.8[facility] GecszkhAQCBJKISEL7707-17-43 17:00:0062.4[facility] TkkjsfaSRNZMNCJSB3582-55-70 17:00:003.8[facility] JeehmmnNLCRORGZXT7524-16-64 17:00:000.4[facility] IoriipsSPJCIHTQPI3831-39-96 17:00:007.9[facility] ZFPIGPLKNO4315-10-74 17:00:001.2[facility] LvhvdgvUJBNCCBGOH4814-87-54 17:00:008.5 [facility] YqxiljwUNEMUUSTSN4936-53-94 17:00:83578Jrrgvoog HermannHEMATOLOGY 2012-08-23 17:00:0012.9[facility] QltzvfhJKBHFXBLME0562-47-65 17:00:0094.9[facility] ZvvhvyvQPRVXNGJPV4867-76-48 17:00:00 Test Item Value Reference Range Interpretation Comments MCH (test code = MCH) 32.6 pg 27.0-31.0 H [facility] FkvhiqbLJNGJNBCRA9027-17-42 17:00:0015.1[facility] 2012-08-23 17:00:0044.0[facility] GcjdezbWCDYOVNOCZ1152-69-94 17:00:0034.4[facility] JxlyfvtVVPLUJYBHZ3065-16-46 17:00:004.64[facility] AftwkjnPJHZHGTBHA4936-67-66 17:00:0012.7[facility]
--- NOTE | 2021-07-29 21:44 | ER ---
Nurse's Notes [facility] Name: Williams Avila Jr Age: 40 yrs Sex: Male : 1980 Arrival Date: 07/29/2021 Time: 18:40 Bed Waiting Private MD: Diagnosis: Presentation: 07/29 18:57 Chief complaint: Patient states: States he has been doing cocaine for 1 week. Not ll1 eating well, not talking to friends. States he wants to kill himself by OD'ing on drugs. Wants help now. Has ZACARIAS and CP off/on. Coronavirus screen: Client denies travel out of the [place] in the last 14 days. At this time, the client does not indicate any symptoms associated with coronavirus-19. Ebola Screen: Patient denies travel to an Ebola-affected area in the 21 days before illness onset. Initial Sepsis Screen: Does the patient meet any 2 criteria? HR > 90 bpm. No. Patient's initial sepsis screen is negative. Does the patient have a suspected source of infection? No. Patient's initial sepsis screen is negative. Risk Assessment: Do you want to hurt yourself or someone else? Patient reports no desire to harm self or others. Onset of symptoms was July 23, 2021. 18:57 Method Of Arrival: Ambulatory ll1 18:57 Acuity: RADHA 2 ll1 Historical: - Allergies: 19:00 Codeine; ll1 - PMHx: 19:00 Hypertension; ll1 - PSHx: 19:00 Cholecystectomy; hand SX; ll1 - Immunization history:: Client reports having NOT received the Covid vaccine. Flu vaccine status is unknown. - Social history:: Smoking status: Patient reports the use of cigarette tobacco products, smokes two packs cigarettes per day. Vital Signs: 18:57 BP 165 / 127; Pulse 103; Resp 18; Temp 97.9; Pulse Ox 99% ; Height 5 ft. 6 in. (167.64 ll1 cm); Pain 8/10; ED Course: 18:40 Patient arrived in ED. ja2 19:00 Triage completed. ll1 19:02 Arm band placed on. ll1 21:12 Mitali Joe, LUIS EDUARDO is Primary Nurse. ch4 21:12 Drew Cox MD is Attending Physician. rn 21:27 Patient's name was called from ER lobby. No response. bb 21:43 Patient's name was called from ER lobby. No response. Unable to locate patient. Will kg disposition as left without being seen by a provider. Administered Medications: No medications were administered Outcome: 21:44 Patient left the ED. kg Signatures: Opal Dexter RN RN bb Drew Cox MD MD rn Lewis, Lynsay, RN RN [facility] Chloe Martinez RN RN Mitali Joe RN RN [facility] Shaye Tripp
--- NOTE | 2021-07-29 21:44 | EDPHYS ---
Physician Documentation [facility] Name: Williams Avila Jr Age: 40 yrs Sex: Male : 1980 Arrival Date: 07/29/2021 Time: 18:40 Bed Waiting Private MD: ED Physician Drew Cox Historical: - Allergies: 07/29 19:00 Codeine; ll1 - PMHx: 19:00 Hypertension; ll1 - PSHx: 19:00 Cholecystectomy; hand SX; ll1 - Immunization history:: Client reports having NOT received the Covid vaccine. Flu vaccine status is unknown. - Social history:: Smoking status: Patient reports the use of cigarette tobacco products, smokes two packs cigarettes per day. Vital Signs: 18:57 BP 165 / 127; Pulse 103; Resp 18; Temp 97.9; Pulse Ox 99% ; Height 5 ft. 6 in. (167.64 ll1 cm); Pain 8/10; MDM: 21:35 ED course: Patient called from the lobby, no answer. rn 07/29 21:19 Order name: Acetaminophen rn 07/29 21:19 Order name: Basic Metabolic Panel rn 07/29 21:19 Order name: EKG - Nurse/Tech rn 07/29 21:19 Order name: IV Saline Lock rn 07/29 21:19 Order name: Labs collected and sent rn 07/29 21:19 Order name: Suicide Precautions rn 07/29 21:19 Order name: Suicide Screening ([place]) rn 07/29 21:19 Order name: Urine Dipstick-Ancillary (obtain specimen) rn Administered Medications: No medications were administered Disposition Summary: 07/29/21 21:44 Eloped Disposition: post triage evaluation and consult kg Reason: unknown kg Signatures: Dispatcher [employer] EDDrew Coe MD MD rn Lewis, Lynsay, RN RN ll1 Chloe Martinez RN RN kg Corrections: (The following items were deleted from the chart) 21:35 21:12 Patient medically screened. rn rn
[2021-07-29 22:03] VITALS: BP 165/127; TEMP 97.9; O2SAT 99
== END 2021-07-29 21:44 | disposition left against medical advice (07) ==
LOC: ER 18:32
DX: Z53.21 Procedure and treatment not carried out due to patient leaving prior to being seen by health care provider (principal)
CPT/HCPCS: 99281

== ENCOUNTER 2021-07-31 14:27 | Emergency (ER) | payer SELFPAY ==
[~2021-07-31 14:27] MED LIST: DIAZEPAM 10 MG/2 ML INJ SYRINGE ONE; NA CHLORIDE 0.9% 1,000 ML ONE
--- OUTSIDE RECORDS SUMMARY | 2021-07-31 14:35 | XMS REPORT | Continuity of Care Document ---
:1980 Author Organization [facility] t Address [address] [place] [address] Care Team Providers Name Role Phone Guerrero DO Attending Clinician Doctor Unassigned, Name Attending Clinician Unavailable DR WILLIAM Attending Clinician Unavailable Jcarlos Pittman Attending Clinician Marco Antonio EASON Attending Clinician Jcarlos KING Attending Clinician Unavailable DR CHRISTA Attending Clinician Unavailable PILAR Attending Clinician Unavailable DR CORY Attending Clinician Unavailable DR IRMA Attending Clinician Unavailable Heath Kohli Attending Clinician King Palomo Attending Clinician Miguelito Kline Attending Clinician DR IDALIA Attending Clinician Unavailable Mariely Attending Clinician Maira Noble Attending Clinician DR WILLIAM Admitting Clinician Unavailable Jcarlos KING Admitting Clinician Unavailable DR CHRISTA Admitting Clinician Unavailable PILAR Admitting Clinician Unavailable DR CORY Admitting Clinician Unavailable DR IRMA Admitting Clinician Unavailable Miguelito Kline Admitting Clinician DR IDALIA Admitting Clinician Unavailable Problems Condition Condition Condition Status Onset Resolution Last Treating Co mments Source Name Details Category Date Date Treatment Clinician Date OTHER Diagnosis Active 2017-02-11 Mem oria 02-11 13:02:00 l OTHER 00:00: Royal 00 Active 02/11/2017 [place] PAIN IN Diagnosis Active 2017-02-07 Ne moria GROIN AREA 3-19 11:48:00 l PAIN IN 00:00: Royal GROIN AREA 00 Active 02/07/2017 [place] PAIN IN Diagnosis Active 2017-02-01 Me moria GROIN 3-13 11:19:00 l PAIN IN 00:00: Sandro GROIN 00 Active 02/01/2017 [place] PRIAPISM Diagnosis Active 2017-06-02 M emoria 3- 10:32:00 l PRIAPISM 00:00: Heath n 00 Active 01/28/2017 [facility] ABDOMINAL Diagnosis Active 2016-06-14 Memoria PAIN 06-14 11:14:00 l 00:00: Sandro ABDOMINAL 00 PAIN Active 06/14/2016 [place] GROIN PAIN Diagnosis Active 2016-06-08 Memoria 06-08 17:01:00 l GROIN 10:00: Sandro PAIN 00 Active 06/08/2016 [place] CHEST PAIN Diagnosis Active [id number] Memoria 0- 14:16:00 l CHEST 06:00: Sandro PAIN 00 Active 08/23/2012 [place] Hypertensi Problem Active 2017-02-14 M emoria ve 04:12:21 l disorder, Sandro systemic Hypertensi arterial ve (disorder) disorder, systemic arterial (disorder) Active Problem 02/14/2017 [facility] [place] Priapism Problem Active 2017-02-14 Mem oria (disorder) 04:12:21 l Priapism Heath n (disorder) Active Problem 02/14/2017 [facility] [place] History of Past Illness Condition Condition Condition Status Onset Resolution Last Treating Co mments Source Name Details Category Date Date Treatment Clinician Date Priapism, Problem 2017-02-14 2017-02-14 Memoria unspecifie 02-11 04:12:21 04:12:21 l d 05:00: Sandro Priapism, 00 unspecifie d 02/11/2017 02/14/2017 [place] Priapism Problem 2017-02-10 2017-02-10 Memoria 02-07 00:30:06 00:30:06 l Priapism 05:00: Heath n 00 02/07/2017 02/10/2017 [facility], [place] Discharge Problem 2016-06-17 2016-06-17 Memoria Diagnosis: 06-14 00:37:55 00:37:55 l Priapism, 05:00: Royal unspecifie Discharge 00 d Diagnosis: Priapism, unspecifie d 06/14/2016 06/17/2016 [place] Discharge Problem 2016-06-11 2016-06-11 Memoria Diagnosis: 06-08 02:43:56 02:43:56 l Priapism 05:00: Royal Discharge 00 Diagnosis: Priapism 6 06/11/2016 [place] Discharge Problem 2016-06-11 2016-06-11 Memoria Diagnosis: 06-08 02:43:56 02:43:56 l Benign 05:00: Royal hypertensi Discharge 00 on Diagnosis: Benign hypertensi on 06/08/2016 06/11/2016 [place] Discharge Problem 2016-02-21 2016-02-21 Memoria Diagnosis: 02-17 04:42:59 04:42:59 l HTN 05:00: Royal (hypertens Discharge 00 ion) Diagnosis: HTN (hypertens ion) 02/18/2016 02/21/2016 [place] Allergies, Adverse Reactions, Alerts This patient has no known allergies or adverse reactions. Social History Smoking Status Start Date Stop Date Source Social History 2017-02-11 17:24:47 [facility] Medications Ordered Filled Start Stop Current Ordering Indication Dosage Frequency Signature Comments Components Source Medication Medication Date Date Medication? Clinician (SIG) Name Name Morphine 2016- No Notes: Memoria 3- (Same l 19:27: as:MORPhin Royal 00 e Sulfate) Morphine 2016- No Notes: Memoria 3-23 (Same l 19:27: as:MORPhin Royal 00 e Sulfate) Morphine 2016-0 No 2 mg, Memoria 3-23 Route: l 18:55: IVP, ONCE, Sandro 00 Dosing Weight 89.091, kg, Priority: STAT, Start date: 02/11/17 13:55:00 CDT, Stop date: 02/11/17 13:55:00 CDT Morphine 2016-0 No 2 mg, Memoria 3-23 Route: l 18:55: IVP, ONCE, Dosing Weight 89.091, kg, Priority: STAT, Start date: 02/11/17 13:55:00 CDT, Stop date: 02/11/17 13:55:00 CDT phenylephri No Notes: Chapo ame ne 10 mg/mL 3-23 Same as: l injectable 18:20: Naeem-Syneph H ermann solution 00 rine phenylephri No Notes: Chap[place] ame ne 10 mg/mL 3-23 Same as: l injectable 18:20: Naeem-Syneph H ermann solution 00 rine Terbutaline No Notes: Chapo ame 3-23 DO NOT l 18:13: USE IN Royal STOCK BROKER AREA (Same As: Lamarthine) Terbutaline No Notes: Chapo ame 3-23 DO NOT l 18:13: USE IN Royal STOCK BROKER AREA (Same As: Lamarthine) Sodium No 1,000 mL, Memori a Chloride 3-23 1,000 l 0.154 18:09: ml/hr, Royal MEQ/ML 00 Infuse Injectable Over: 1 Solution hr, Route: IV, 1,000, Drug form: INJ, ONCE, Priority: STAT, Dosing Weight 89.091 kg, Start date: 02/11/17 13:09:00 CDT, Duration: 1 doses or times, Stop date: 02/11/17 13:09:00 CDT Sodium 2016-0 No 1,000 mL, Memori a Chloride 3-23 1,000 l 0.154 18:09: ml/hr, Royal MEQ/ML 00 Infuse Injectable Over: 1 Solution hr, Route: IV, 1,000, Drug form: INJ, ONCE, Priority: STAT, Dosing Weight 89.091 kg, Start date: 02/11/17 13:09:00 CDT, Duration: 1 doses or times, Stop date: 02/11/17 13:09:00 CDT Zofran ODT No 4 mg, Memori a 3-23 Route: PO, l 18:00: Drug form: Sandro 00 TABDIS, ONCE, Dosing Weight 89.091, kg, Priority: STAT, Start date: 02/11/17 13:00:00 CDT, Stop date: 02/11/17 13:00:00 CDT Morphine 2017-0 No 4 mg, Memoria 02-11 Route: IM, l 18:00: ONCE, Dosing Weight 89.091, kg, Priority: STAT, Start date: 02/11/17 13:00:00 CDT, Stop date: 02/11/17 13:00:00 CDT Zofran ODT 2016-0 No 4 mg, Memori a 02-11 Route: PO, l 18:00: Drug form: TABDIS, ONCE, Dosing Weight 89.091, kg, Priority: STAT, Start date: 02/11/17 13:00:00 CDT, Stop date: 02/11/17 13:00:00 CDT Morphine 2016-0 No 4 mg, Memoria 02-11 Route: IM, l 18:00: ONCE, Dosing Weight 89.091, kg, Priority: STAT, Start date: 02/11/17 13:00:00 CDT, Stop date: 02/11/17 13:00:00 CDT Acetaminoph Yes 1 tab, PO, Memoria en 325 MG / 3-19 Q6H, PRN l Hydrocodone 17:47: Pain Score Royal Bitartrate 6-10, do [address] Tablet or operate [[place] heavy 5/325] machinery while taking this medication not to exceed 8 tablets/da y, # 15 tab, 0 Refill(s) Amlodipine Yes 10 mg = 1 Me moria 10 MG Oral 3-19 tab, PO, l Tablet 17:47: Daily, # Royal [Norvasc] 00 30 tab, 0 Refill(s) Acetaminoph Yes 1 tab, PO, Memoria en 325 MG / 3-19 Q6H, PRN l Hydrocodone 17:47: Pain Score Sandro Bitartrate 00 6-10, do [address] Tablet or operate [[place] heavy 5/325] machinery while taking this medication not to exceed 8 tablets/da y, # 15 tab, 0 Refill(s) Amlodipine Yes 10 mg = 1 Me moria 10 MG Oral 3-19 tab, PO, l Tablet 17:47: Daily, # Sandro [[facility]] 00 30 tab, 0 Refill(s) Labetalol 2017-0 No 20 mg, Memori a 3-19 Route: l 17:25: IVP, Drug Royal 00 form: INJ, ONCE, Dosing Weight 85.909, kg, Start date: 02/07/17 12:25:00 CDT, Stop date: 02/07/17 12:25:00 CDT Labetalol 2017-0 No 20 mg, Memori a 3-19 Route: l 17:25: IVP, Drug Sandro 00 form: INJ, ONCE, Dosing Weight 85.909, kg, Start date: 02/07/17 12:25:00 CDT, Stop date: 02/07/17 12:25:00 CDT Clonidine 2017-0 No 0.2 mg, Memor ia Hydrochlori 3-19 Route: PO, l de 0.2 MG 16:45: Drug form: Hugh rmann Oral Tablet 00 TAB, ONCE, Dosing Weight 85.909, kg, Priority: STAT, Start date: 02/07/17 11:45:00 CDT, Stop date: 02/07/17 11:45:00 CDT Clonidine 2017-0 No 0.2 mg, Memor ia Hydrochlori - Route: PO, l de 0.2 MG 16:45: [...] 11:41:00 CDT, Stop date: 02/07/17 11:41:00 CDT Labetalol 2017-0 No 20 mg, Memori a 3-19 Route: l 16:41: IVP, Drug Sandro 00 form: INJ, ONCE, Dosing Weight 85.909, kg, Priority: STAT, Start date: 02/07/17 11:41:00 CDT, Stop date: 02/07/17 11:41:00 CDT Morphine 2017-0 No 4 mg, Memoria 3-19 Route: IM, l 16:31: ONCE, Dosing Weight 85.909, kg, Priority: STAT, Start date: 02/07/17 11:31:00 CDT, Stop date: 02/07/17 11:31:00 CDT Morphine 2017-0 No 4 mg, Memoria 3-19 Route: IM, l 16:31: ONCE, Dosing Weight [...] 3-19 Route: PO, l 15:40: Drug form: Royal TABDIS, ONCE, Dosing Weight 85.909, kg, Priority: STAT, Start date: 02/07/17 10:40:00 CDT, Stop date: 02/07/17 10:40:00 CDT Morphine 2017-0 No 4 mg, Memoria [...] 3-19 Route: PO, l 15:39: Drug form: Royal 00 TABDIS, ONCE, Dosing Weight 85.909, kg, Priority: STAT, Start date: 02/07/17 10:39:00 CDT, Stop date: 02/07/17 10:39:00 CDT Morphine 2017-0 No 4 mg, Memoria 3-19 Route: IM, l 15:39: ONCE, Sandro 00 Dosing Weight 85.909, kg, Priority: STAT, Start date: 02/07/17 10:39:00 CDT, Stop date: 02/07/17 10:39:00 CDT Zofran ODT 2017-0 No 4 mg, [...] CDT, Stop date: 02/07/17 10:39:00 CDT Naeem-Synephr 2017-0 No Notes: Chapo ame ine 3-19 Same as: l 15:34: Naeem-Syneph Sandro 00 rine Naeem-Synephr 2017-0 No Notes: Chapo ame ine 3-19 Same as: l 15:34: Naeem-Syneph Royal 00 rine Phenylephri 2017-0 No 10 mg, Chapo ame ne 3-19 Route: l 15:26: INJ, Sandro 00 Q15Min, Dosing Weight 85.909, kg, PRN, Start date: 02/07/17 10:26:00 CDT, Duration: 30 day, Stop date: 03/09/17 10:25:00 CDT, pripism Phenylephri 2017-0 No 10 mg, Chapo ame ne 3-19 Route: l 15:26: INJ, Sandro 00 Q15Min, Dosing Weight 85.909, kg, PRN, Start date: 02/07/17 10:26:00 CDT, Duration: 30 day, Stop date: 03/09/17 10:25:00 CDT, pripism Lidocaine 2017-0 No Notes: Memori a Hydrochlori 3-19 (Same as: l de 10 MG/ML 15:21: Xylocaine) Royal Injectable 00 Solution Lidocaine 2017-0 No Notes: Memori a Hydrochlori 3-19 (Same as: l de 10 MG/ML 15:21: Xylocaine) Sandro Injectable 00 Solution Dilaudid 2017-0 No 0.5 mg, Memori a 3-13 Route: IM, l 16:03: ONCE, Dosing Weight 89.091, kg, Priority: STAT, Start date: 02/01/17 11:03:00 CDT, Stop date: 02/01/17 11:03:00 CDT Dilaudid 2017-0 No 0.5 mg, Memori a 3-13 Route: IM, l 16:03: ONCE, Dosing Weight 89.091, kg, Priority: STAT, Start date: 02/01/17 11:03:00 CDT, Stop date: 02/01/17 11:03:00 CDT Zofran 2017-0 No 4 mg, Memoria 3-13 Route: IM, l 15:08: Drug form: Sandro 00 INJ, ONCE, Dosing Weight 89.091, kg, Priority: STAT, Start date: 02/01/17 10:08:00 CDT, Stop date: 02/01/17 10:08:00 CDT Zofran 2017-0 No 4 mg, Memoria 3-13 Route: IM, l 15:08: Drug form: Sandro 00 INJ, ONCE, Dosing Weight 89.091, kg, Priority: STAT, Start date: 02/01/17 10:08:00 CDT, Stop date: 02/01/17 10:08:00 CDT Zofran ODT 2017-0 No Notes: Memor ia 3-13 (Same as: l 15:01: Zofran ODT) Dilaudid 2017-0 No 0.5 mg, Memori a 3-13 Route: IM, l 15:01: ONCE, Dosing Weight 89.091, kg, Priority: STAT, Start date: 02/01/17 10:01:00 CDT, Stop date: 02/01/17 10:01:00 CDT Zofran ODT 2017-0 No Notes: Memor ia 3-13 (Same as: l 15:01: Zofran ODT) Dilaudid 2017-0 No 0.5 mg, Memori a 3-13 Route: IM, l 15:01: ONCE, Dosing Weight 89.091, kg, Priority: STAT, Start date: 02/01/17 10:01:00 CDT, Stop date: 02/01/17 10:01:00 CDT Phenylephri 2017-0 No 1 mg, Memor ia ne 02-01 Route: l 14:55: SUB-Q, Sandro ONCE, Dosing Weight 89.091, kg, Start date: 02/01/17 9:55:00 CDT, Stop date: 02/01/17 9:55:00 CDT Phenylephri 2017-0 No 1 mg, Memor ia ne 02-01 Route: l 14:55: SUB-Q, Sandro ONCE, Dosing Weight 89.091, kg, Start date: 02/01/17 9:55:00 CDT, Stop date: 02/01/17 9:55:00 CDT Dilaudid 2017-0 No 1 mg, Memoria 3-13 Route: l 14:54: IVP, ONCE, Dosing Weight 89.091, kg, Priority: STAT, Start date: 02/01/17 9:54:00 CDT, Stop date: 02/01/17 9:54:00 CDT Dilaudid 2017-0 No 1 mg, Memoria 3-13 Route: l 14:54: IVP, ONCE, Dosing Weight 89.091, kg, Priority: STAT, Start date: 02/01/17 9:54:00 CDT, Stop date: 02/01/17 9:54:00 CDT Amlodipine 2017-0 No 10 mg, Memor ia 01-28 Route: PO, l 20:15: Drug form: TAB, ONCE, Dosing Weight 100.909, kg, Start date: 01/28/17 14:15:00 PLUMBER ASSISTANT, Stop date: 01/28/17 14:15:00 PLUMBER ASSISTANT Amlodipine 2017-0 No 10 mg, Memor ia 01-28 Route: PO, l 20:15: Drug form: Sandro 00 TAB, ONCE, Dosing Weight 100.909, kg, Start date: 01/28/17 14:15:00 PLUMBER ASSISTANT, Stop date: 01/28/17 14:15:00 PLUMBER ASSISTANT Dilaudid 2017-0 No 0.5 mg, Memori a 01-28 Route: l 19:39: IVP, ONCE, Dosing Weight 100.909, kg, Priority: STAT, Start date: 01/28/17 13:39:00 PLUMBER ASSISTANT, Stop date: 01/28/17 13:39:00 PLUMBER ASSISTANT Dilaudid 2017-0 No 0.5 mg, Memori a 01-28 Route: l 19:39: IVP, ONCE, Dosing Weight 100.909, kg, Priority: STAT, Start date: 01/28/17 13:39:00 PLUMBER ASSISTANT, Stop date: 01/28/17 13:39:00 PLUMBER ASSISTANT phenylephri 2017-0 No 100 Memori a ne 3-09 microgram, l 19:09: 1 mL, Royal 00 Route: intraCAVER NOSAL, Drug form: INJ, PRN, PRN Other -See Comment, Start date: 01/28/17 13:09:00 PLUMBER ASSISTANT, Duration: 5 doses or times, Stop date: Limited # of times phenylephri 2017-0 No 100 Memori a ne 3-09 microgram, l 19:09: 1 mL, Royal Route: intraCAVER NOSAL, Drug form: INJ, PRN, PRN Other -See Comment, Start date: 01/28/17 13:09:00 PLUMBER ASSISTANT, Duration: 5 doses or times, Stop date: Limited # of times Lidocaine 2016-0 No Notes: Memori a Hydrochlori 3-09 (Same as: l de 10 MG/ML 18:57: Xylocaine) Sandro Injectable 00 Solution Lidocaine 2017-0 No Notes: Memori a Hydrochlori 3-09 (Same as: l de 10 MG/ML 18:57: Xylocaine) [place]ro Injectable 00 Solution phenylephri 2017-0 No 1 mL, Memor ia ne 10 mg/mL 01-28 Route: l injectable 18:55: intraCAVER H ermann solution 00 NOSAL, ONCE, Dosing Weight 100.909, kg, Start date: 01/28/17 12:55:00 PLUMBER ASSISTANT, Stop date: 01/28/17 12:55:00 PLUMBER ASSISTANT phenylephri No 1 mL, Memor ia ne 10 mg/mL 01-28 Route: l injectable 18:55: intraCAVER H ermann solution 00 NOSAL, ONCE, Dosing Weight 100.909, kg, Start date: 01/28/17 12:55:00 PLUMBER ASSISTANT, Stop date: 01/28/17 12:55:00 PLUMBER ASSISTANT Morphine No Notes: Memoria 01-28 (Same l 18:42: as:MORPhin Sandro 00 e Sulfate) Ondansetron No Notes: Chapo ame 01-28 (Same as: l 18:42: Zofran) Royal 00 MEDICATION WASTE Product Size: 4 mg Product Wasted: _0__ mg Morphine No Notes: Memoria 01-28 (Same l 18:42: as:MORPhin Sandro 00 e Sulfate) Ondansetron No Notes: Chapo ame 01-28 (Same as: l 18:42: Zofran) Royal 00 MEDICATION WASTE Product Size: 4 mg Product Wasted: _0__ mg Zofran No 4 mg, Memoria 06-14 Route: l 18:33: IVP, Drug Sandro 00 form: INJ, ONCE, Dosing Weight 93.182, kg, Priority: STAT, Start date: 06/14/16 13:33:00 CDT, Stop date: 06/14/16 13:33:00 CDT Dilaudid 0 No 0.5 mg, Memori a 06-14 Route: l 18:33: IVP, ONCE, Sandro 00 Dosing Weight 93.182, kg, Priority: STAT, Start date: 06/14/16 13:33:00 CDT, Stop date: 06/14/16 13:33:00 CDT Zofran 0 No 4 mg, Memoria 06-14 Route: l 18:33: IVP, Drug Sandro 00 form: INJ, ONCE, Dosing Weight 93.182, kg, Priority: STAT, Start date: 06/14/16 13:33:00 CDT, Stop date: 07/24/16 13:33:00 CDT Dilaudid 2016-0 No 0.5 mg, Memori a 7-24 Route: l 18:33: IVP, ONCE, Sandro 00 Dosing Weight 93.182, kg, Priority: STAT, Start date: 06/14/16 13:33:00 CDT, Stop date: 06/14/16 13:33:00 CDT Sodium 2016-0 No 1,000 mL, Memori a Chloride 7-24 1000 l 0.154 18:27: ml/hr, Royal MEQ/ML 00 Infuse Injectable Over: 1 Solution hr, Route: IV, 1,000, Drug form: INJ, ONCE, Priority: STAT, Dosing Weight 93.182 kg, Start date: 06/14/16 13:27:00 CDT, Duration: 1 doses or times, Stop date: 06/14/16 13:27:00 CDT Sodium 2016-0 No 1,000 mL, Memori a Chloride 7-24 1000 l 0.154 18:27: ml/hr, Sandro MEQ/ML 00 Infuse Injectable Over: 1 Solution hr, Route: IV, 1,000, Drug form: INJ, ONCE, Priority: STAT, Dosing Weight 93.182 kg, Start date: 06/14/16 13:27:00 CDT, Duration: 1 doses or times, Stop date: 06/14/16 13:27:00 CDT Morphine 2016-0 No 2 mg, Memoria 7-24 Route: IM, l 17:11: Drug form: Royal 00 INJ, ONCE, Dosing Weight 93.182, kg, Priority: STAT, Start date: 06/14/16 12:11:00 CDT, Stop date: 06/14/16 12:11:00 CDT Morphine 2016-0 No 2 mg, Memoria 7-24 Route: IM, l 17:11: Drug form: Royal 00 INJ, ONCE, Dosing Weight 93.182, kg, Priority: STAT, Start date: 06/14/16 12:11:00 CDT, Stop date: 06/14/16 12:11:00 CDT Phenylephri 2015-0 No Notes: Chapo ame ne -24 (Same as: l 16:08: Naeem-Syneph Sandro 00 rine) Phenylephri 2015-0 No Notes: Chapo ame ne 7-24 (Same as: l 16:08: Naeem-Syneph Royal 00 rine) Morphine No Notes: Memoria - (Same l 16:05: as:MORPhin Sandro 00 e Sulfate) Zofran ODT No Notes: Memor ia - (Same as: l 16:05: Zofran Royal 00 ODT) Morphine No Notes: Memoria -24 (Same l 16:05: as:MORPhin Sandro 00 e Sulfate) Zofran ODT No Notes: Memor ia -24 (Same as: l 16:05: Zofran Royal 00 ODT) bupivacaine No 1 inj, Chapo ame 0.5% 06-14 Route: l 16:03: SUB-Q, Sandro 00 Dosing Weight 93.182, kg, ONCE, STAT, Start date: 06/14/16 11:03:00 CDT, Stop date: 06/14/16 11:03:00 CDT bupivacaine No 1 inj, Chapo ame 0.5% 24 Route: l 16:03: SUB-Q, Sandro 00 Dosing Weight 93.182, kg, ONCE, STAT, Start date: 06/14/16 11:03:00 CDT, Stop date: 06/14/16 11:03:00 CDT lidocaine No 1 inj, Memori a 2% -24 Route: l 16:02: SUB-Q, Sandro 00 Dosing Weight 93.182, kg, ONCE, STAT, Start date: 06/14/16 11:02:00 CDT, Stop date: 06/14/16 11:02:00 CDT lidocaine No 1 inj, Memori a 2% 7-24 Route: l 16:02: SUB-Q, Sandro 00 Dosing Weight 93.182, kg, ONCE, STAT, Start date: 06/14/16 11:02:00 CDT, Stop date: 06/14/16 11:02:00 CDT Acetaminoph Yes 1-2 tab, Me moria en 325 MG / 7-18 PO, Q4-6H, l Hydrocodone 19:29: PRN Pain, H ermann Bitartrate 00 X 5 day, # 5 MG Oral 15 tab, 0 Tablet Refill(s) [[place] 5/325] Acetaminoph 2016 Yes 1-2 tab, Me moria en 325 MG / 7-18 PO, Q4-6H, l Hydrocodone 19:29: PRN Pain, H ermann Bitartrate 00 X 5 day, # 5 MG Oral 15 tab, 0 Tablet Refill(s) [[place] 5/325] Dilaudid No Notes: Memoria 7-18 (Same as: l 19:08: Dilaudid) Dilaudid 0 No Notes: Memoria 7-18 (Same as: l 19:08: Dilaudid) Morphine 2015-0 No 4 mg, Memoria 7-18 [...] 7-18 Route: IM, l 18:26: Drug form: Royal 00 INJ, ONCE, Dosing Weight 88.636, kg, Priority: STAT, Start date: 06/08/16 13:26:00 CDT, Stop date: 06/08/16 13:26:00 CDT Morphine 2015-0 No 4 mg, Memoria 7-18 Route: IM, l 18:26: Drug form: Sandro 00 INJ, ONCE, Dosing Weight 88.636, kg, Priority: STAT, Start date: 06/08/16 13:26:00 CDT, Stop date: 06/08/16 13:26:00 CDT Phenylephri No Route: Chapo ame ne 7-18 SUB-Q, l 18:23: ONCE, Dosing Weight 88.636, kg, Start date: 06/08/16 13:23:00 CDT, Stop date: 06/08/16 13:23:00 CDT Phenylephri 2016-0 No Route: Chapo ame ne 7-18 SUB-Q, l 18:23: ONCE, Dosing Weight 88.636, kg, Start date: 06/08/16 13:23:00 CDT, Stop date: 06/08/16 13:23:00 CDT Marcaine 2016-0 No 10 mL, Memoria HCl 7-18 Route: l 18:22: SUB-Q, Dosing Weight 88.636, kg, ONCE, Start date: 06/08/16 13:22:00 CDT, Stop date: 06/08/16 13:22:00 CDT Marcaine 2016-0 No 10 mL, Memoria HCl 7-18 Route: l 18:22: SUB-Q, Dosing Weight 88.636, kg, ONCE, Start date: 06/08/16 13:22:00 CDT, Stop date: 06/08/16 13:22:00 CDT Amlodipine 2016-0 No 10 mg, Memor ia 5-01 Route: PO, l 19:16: Drug form: Royal 00 TAB, ONCE, Dosing Weight 91.818, kg, Start date: 03/22/16 14:16:00 CDT, Stop date: 03/22/16 14:16:00 CDT Amlodipine 2016-0 No 10 mg, Memor ia 5-01 Route: PO, l 19:16: Drug form: Royal 00 TAB, ONCE, Dosing Weight 91.818, kg, Start date: 03/22/16 14:16:00 CDT, Stop date: 03/22/16 14:16:00 CDT Morphine 2016-0 No 4 mg, Memoria 5-01 Route: l 18:33: IVP, ONCE, Dosing Weight 91.818, kg, Priority: STAT, Start date: 03/22/16 13:33:00 CDT, Stop date: 03/22/16 13:33:00 CDT Morphine 2016-0 No 4 mg, Memoria 5-01 Route: l 18:33: IVP, ONCE, Dosing Weight 91.818, kg, Priority: STAT, Start date: 03/22/16 13:33:00 CDT, Stop date: 03/22/16 13:33:00 CDT Hydralazine No Notes: Chapo ame 5-01 (Same as: l 17:46: Apresoline Sandro 00 ) Push over 5 minutes Hydralazine No Notes: Chapo ame 5-01 (Same as: l 17:46: Apresoline Sandro 00 ) Push over 5 minutes Morphine No Notes: Memoria 5-01 (Same l 17:45: as:MORPhin Sandro 00 e Sulfate) Ondansetron No Notes: Chapo ame 5-01 (Same as: l 17:45: Zofran) Sandro 00 MEDICATION WASTE Product Size: 4 mg Product Wasted: ___ mg Morphine No Notes: Memoria 5-01 (Same l 17:45: as:MORPhin Sandro 00 e Sulfate) Ondansetron No Notes: Chapo ame 5-01 (Same as: l 17:45: Zofran) Royal 00 MEDICATION WASTE Product Size: 4 mg Product Wasted: ___ mg Phenylephri No Notes: Chapo ame ne 5- Same as: l 17:42: Naeem-Syneph Royal 00 rine Phenylephri No Notes: Chapo ame ne 5-01 Same as: l 17:42: Naeem-Syneph Royal 00 rine Hydrochloro No Notes: Chapo ame thiazide 3-29 (Same as: l 21:44: Hydrodiuri Sandro 00 l) With food. Hydrochloro No Notes: Chapo ame thiazide 3-29 (Same as: l 21:44: Hydrodiuri Royal 00 l) With food. hydrochloro Yes 12.5 mg = M emoria thiazide 3-29 1 tab, PO, l 12.5 mg 21:42: Daily, # Heath n oral tablet 00 30 tab, 0 Refill(s) hydrochloro Yes 12.5 mg = M emoria thiazide 3-29 1 tab, PO, l 12.5 mg 21:42: Daily, # Heath n oral tablet 00 30 tab, 0 Refill(s) amLODIPine Yes 10 mg = 1 Me moria 10 mg oral 3-29 tab, PO, l tablet 21:41: Daily, # Royal 00 30 tab, 0 Refill(s) amLODIPine 2016-0 Yes 10 mg = 1 Me moria 10 mg oral 3-29 tab, PO, l tablet 21:41: Daily, # Royal 00 30 tab, 0 Refill(s) Ondansetron 2015-0 No 4 mg, Memor ia 02-17 Route: l 20:02: IVP, ONCE, Dosing Weight 90.136, kg, Priority: STAT, Start date: 02/18/16 15:02:00, Stop date: 02/18/16 15:02:00 Hydromorpho 2015-0 No 1 mg, Memor ia ne 02-17 Route: l 20:02: IVP, ONCE, Dosing Weight 90.136, kg, Priority: STAT, Start date: 02/18/16 15:02:00, Stop date: 02/18/16 15:02:00 Ondansetron 2015-0 No 4 mg, Memor ia 02-17 Route: l 20:02: IVP, ONCE, Dosing Weight 90.136, kg, Priority: STAT, Start date: 02/18/16 15:02:00, Stop date: 02/18/16 15:02:00 Hydromorpho 2015-0 No 1 mg, Memor ia ne 02-17 Route: l 20:02: IVP, ONCE, Dosing Weight 90.136, kg, Priority: STAT, Start date: 02/18/16 15:02:00, Stop date: 02/18/16 15:02:00 Phenylephri 2015-0 No Notes: [place] ame ne 02-17 (Same as: l 19:54: Naeem-Syneph rine) Labetalol 2015-0 No 20 mg, Memori a 02-17 Route: l 19:54: IVP, ONCE, Dosing Weight 90.136, kg, Priority: STAT, Start date: 02/18/16 14:54:00, Stop date: 02/18/16 14:54:00 Saline 2015-0 No Notes: Memoria Flush 0.9% 02-17 (Same as: l 19:54: BD Posiflush) Phenylephri No Notes: Chapo ame ne 02-17 [...] MG Oral 15 tab, 0 Tablet Refill(s) [[place] 5/325] Acetaminoph Yes 1-2 tab, Me moria en 325 MG / 3-20 PO, Q4-6H, l Hydrocodone 21:05: PRN Pain, H ermann Bitartrate 00 X 5 day, # 5 MG Oral 15 tab, 0 Tablet Refill(s) [[place] 5/325] amLODIPine Yes 5 mg = 1 Mem oria 5 mg oral 3-20 tab, PO, l tablet 21:04: Daily, # [place] 00 30 tab, 0 Refill(s) amLODIPine Yes 5 mg = 1 Mem oria 5 mg oral 3-20 tab, PO, l tablet 21:04: Daily, # [place] 00 30 tab, 0 Refill(s) Marcaine No Notes: Memoria HCl 3-20 Preservati l 19:16: ve free. (Same As: Yadira ) Marcaine No Notes: Memoria HCl 3-20 Preservati l 19:16: ve free. (Same As: Yadira ) Terbutaline No Notes: Chapo ame 3-20 DO NOT l 19:14: USE IN STOCK BROKER AREA (Same As: Brethine) Non-Formul crystal Terbutaline No Notes: [place] am[place] 3-20 DO NOT l 19:14: USE IN [place] 00 STOCK BROKER AREA (Same As: Brethine) Non-Formul crystal Dilaudid 2015-0 No 1 mg, Memoria 3-20 Route: l 19:06: IVP, ONCE, Dosing Weight 93.636, kg, Priority: STAT, Start date: 02/09/16 14:06:00, Stop date: 02/09/16 14:06:00 Labetalol 2016-0 No 20 mg, Memori a 3-20 Route: l 19:06: IVP, Drug form: INJ, ONCE, Dosing Weight 93.636, kg, Priority: STAT, Start date: 02/09/16 14:06:00, Stop date: 02/09/16 14:06:00 Dilaudid 2015-0 No 1 mg, Memoria 3-20 Route: l [...] 18:45: Naeem-Syneph H ermann solution 00 rine) phenylephri No Notes: [place] am[place] ne 10 mg/mL 3-20 (Same as: l injectable 18:45: Naeem-Syneph H ermann solution 00 rine) Unknown Yes Refill(s) Memor ia Home 3-20 0 l Medication 17:03: Royal 00 Unknown Yes Refill(s) [facility] 3-20 0 l Medication 17:03: Phenylephri 0 No 1 mg, [facility] ne 3-20 Route: l 16:15: SUB-Q, Sandro 00 ONCE, Dosing Weight 93.636, kg, Start date: 02/09/16 11:15:00, Stop date: 02/09/16 11:15:00 Phenylephri 2016-0 No 1 mg, [facility] ne 3-20 Route: l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 UPMGWETKCM4235-03-80 18:31:000.5[facility] XlafrrdYPWSZWKVQO8583-65-13 18:31:00 22.5[facility] OmrqsffTXFZREPMGH0390-95-80 18:31:006.2[facility]annHEMATOLOGY 2017-02-11 18:31:0069.5[facility] KbjzvclZXZUMYGRXA6509-99-87 18:31:001.3[facility] SjdocafOZHEZECRHB3162-15-10 18:31:00Negative (02/11/17 1:31 PM)[facility] RWWKUZRZFD9338-60-36 18:31:00Negative (02/11/17 1:31 PM)[facility] XWGNCIEIMAFQ1494-91-00 19:37:000.88[facility] SuzafdrTFFZHZHQWVHI1936-31-94 19:37:008[facility] WgnkjhqTNVDAMKLKQZY0335-00-72 19:37:76253Tnmnymic [facility] ONMEDJJNVZ4558-80-46 19:37:006.6[facility] KsfcxreMPWKRRYNKH0339-86-27 19:37:00 61.5[facility] HarjayyEEUKNFBALR6759-76-10 19:37:0029.4[facility]annHEMATOLOGY 2017-01-28 19:37:000.5[facility] IbonvuxBEWJMJHYSH7381-47-81 19:37:007.4[facility] KqtjntaMCXQHTCEBL5245-42-56 19:37:003.5[facility] JosqlshZOBEZFODNG1588-06-01 19:37:000.8[facility] WpbdfahDXPVWVKIDO8932-66-21 19:37:002.0[facility] DMACJNJDMM9145-32-48 19:37:000.1[facility] GdexjjsGDQOYXHWZF4731-19-23 19:37:000.2 [facility] NpjzzpxZXEELWYWJH2536-01-31 19:37:0093.3[facility]annHEMATOLOGY 2017-01-28 19:37:0034.0[facility] PttypdtMODIBDYTRY4053-57-80 19:37:00 Test Item Value Reference Range Interpretation Comments MCH (test code = MCH) 31.7 pg 27.0-31.0 [facility] RksckanMQJWZSTSAI1099-85-40 19:37:0014.1[facility]annHEMATOLOGY 2017-01-28 19:37:15439Grnyeqfv DsacwivKODRCSYHNI9334-96-21 19:37:008.2[facility] LxinerjLFKLQUOZMP0177-63-43 19:37:0012.0[facility] YveejuwKITZTPSMTN9736-89-85 19:37:0041.8[facility] FygecsiHMIWJZCQPH2836-93-90 19:37:004.48[facility] LJQRRYKYBQ1962-63-12 19:37:0014.2[facility] MfeuijaWCMRWOGXWVII1392-27-65 19:37:00 14.8[facility] ZshnizsEASWYGQVFNSO7346-71-24 19:37:79349Ckvperfl [facility] YDSJPEMTQLIN0059-78-63 19:37:68456Utvxymou WttpuajLFKVJBIIUNUL3806-11-91 19:37:0025[facility] MbiiigkFZKGIYLRVRDW3770-74-03 19:37:003.8[facility] RFLWXBXANTPA1419-70-09 19:37:008.4[facility] FvdgmxnOQDQKWETBFBS6584-85-71 19:37:82690Wyfblehz ObhwpceACCVGFPSPVUX7096-61-19 19:37:000.88[facility] LXBFJPMFHEFD5278-21-61 19:37:008[facility] ImpgheqFPLJPTOPOZIY3493-47-35 19:37:00 106[facility] CxrdiyxFXQBLYCCDE3702-44-86 19:37:006.6[facility]annHEMATOLOGY 2017-01-28 19:37:0061.5[facility] XcpobcrEMTLXCHHKD1124-66-87 19:37:0029.4[facility] PkjhstsBUHSFNKYVT9379-74-34 19:37:000.5[facility] QmxjhbtLEPDZXAORY1360-87-08 19:37:007.4[facility] XmxdtrkFZKQGXMVPS2442-86-60 19:37:003.5[facility] HNIDCBMSIF6313-43-04 19:37:000.8[facility] WhdaypdPWEYGTDWRL7704-89-65 19:37:002.0 [facility] GhlmwljGVECTVOWOV5972-59-59 19:37:000.1[facility]annHEMATOLOGY 2017-01-28 19:37:000.2[facility] OlyyaiiVMWMVTYWIA2298-65-98 19:37:0093.3[facility] ItznlnxWSUWMZZXBD1967-42-74 19:37:0034.0[facility] YphgebqVCUXFPDUFI5835-16-95 19:37:00 Test Item Value Reference Range Interpretation Comments MCH (test code = MCH) 31.7 pg 27.0-31.0 [facility] DhihibyURFODVMDNKOK4649-15-04 19:37:0014.8[facility]annHEMATOLOGY 2017-01-28 19:37:0014.1[facility] WomspfwUVCLEXUVZA1267-45-59 19:37:85130Zdupznyi KcfvtlwSBYSVPXKDA5882-95-47 19:37:008.2[facility] OknkfpkXTHHKMTGES8715-54-02 19:37:0012.0[facility] EuqbzrjBJGUHGZJTI2275-82-11 19:37:0041.8[facility] PECOCMCCJQ2798-49-08 19:37:004.48[facility] FsqkknnGKHYWCSLBE5183-45-40 19:37:00 14.2[facility] MevreadNQPNRDBTDDXE1197-92-22 19:37:61595Vtxvuwdl [facility] OXLQBCUKFRJX4405-04-32 19:37:39490Aersbwip LfzzukgGMQAQFVXMXWI6170-53-93 19:37:0025[facility] MrrktaoNLYQLTXIZFCE0548-46-93 19:37:003.8[facility] RINPILCXJOFR8240-46-76 19:37:008.4[facility] BeasdzvKVRFRFSDVOAN6966-85-20 19:37:45864Yjkcavfc HermannURINALYSIS WITH MIOLH2141-89-17 10:03:00 Test Item Value Reference Range Interpretation [...] code = USPERM) /HPF NONE COMPREHENSIVE METABOLIC OFT0953-06-82 10:03:00 Test Item Value Reference Range Interpretation [...] = 31A) 22 IU/L <=78 DRUGS OF FARAE0345-38-45 10:00:00 Test Item Value Reference Range Interpretation [...] ng/mL Opiates 2000 ng/mL PRO TIME AND QWA8770-92-74 09:56:00 Test Item Value Reference Range Interpretation [...] (test code = RBCMOR) NORMAL URINE AND FVBSU6646-78-06 19:33:00Negative (06/14/16 2:33 PM)[facility] URINE AND HEBIA8042-67-50 19:33:00Negative (06/14/16 2:33 PM)[facility] URINE AND QECJI3672-07-34 19:33:000.2[facility] DSHPS1088-00-24 19:33:00Negative (06/14/16 2:33 PM)[facility] OULAY5243-86-46 19:33:00Clear (06/14/16 2:33 PM)[facility] IQJSY0212-05-73 19:33:00 Test Item Value Reference Range Interpretation Comments UA Spec Grav (test code = UA Spec 1.020 1 Grav) [facility] WBZZO7643-51-93 19:33:00Negative *NA*(06/14/16 2:33 PM) [facility] BVHLB5931-34-52 19:33:00 Test Item Value Reference Range Interpretation Comments UA pH (test code = UA pH) 5.5 1 5.0-8.0 [facility] HSCKP4222-81-96 19:33:00Yellow *NA*(06/14/16 2:33 PM) [facility] RQQWT6374-90-02 19:33:00Negative (06/14/16 2:33 PM) [facility] EHLPF1334-06-58 19:33:00Negative (06/14/16 2:33 PM) [facility] XDSYG7857-21-58 19:33:000.2[facility] PPNBP8242-74-75 19:33:00Negative (06/14/16 2:33 PM)[facility] HTWMN6879-68-62 19:33:00Clear (06/14/16 2:33 PM)[facility] STOOL 2016-06-14 19:33:00 Test Item Value Reference Range Interpretation Comments UA Spec Grav (test code = UA Spec 1.020 1 Grav) [facility] QGIAD9724-68-12 19:33:00Negative *NA*(06/14/16 2:33 PM) [facility] FUYBL4833-27-54 19:33:00 Test Item Value Reference Range Interpretation Comments UA pH (test code = UA pH) 5.5 1 5.0-8.0 [facility] RTTXQ5088-61-55 19:33:00Yellow *NA*(06/14/16 2:33 PM) [facility] ACNUCJ7345-65-51 19:32:00Negative *NA*(06/14/16 2:32 PM) [facility] WQHKOZ8309-45-03 19:32:00See Note (06/14/16 2:32 PM)[facility] PSKEXU0824-08-51 19:32:00Negative *NA*(06/14/16 2:32 PM)[facility] HMZGDO9622-80-21 19:32:00Negative *NA*(06/14/16 2:32 PM)[facility] EYWIBM9926-17-50 19:32:00Negative *NA*(06/14/16 2:32 PM)[facility] YWBTIQ1048-36-68 19:32:00Positive *ABN*(06/14/16 2:32 PM)[facility] MUWUCM3008-99-61 19:32:00Positive *ABN*(06/14/16 2:32 PM)[facility] VPEOQP0860-12-86 19:32:00Negative *NA*(06/14/16 2:32 PM)[facility] SCGUAQ1832-50-28 19:32:00Negative *NA*(06/14/16 2:32 PM)[facility] OETVNR1472-86-43 19:32:00See Note (06/14/16 2:32 PM)[facility] AHPSPP4226-90-53 19:32:00Negative *NA*(06/14/16 2:32 PM)[facility] IHGOZU3661-57-25 19:32:00Negative *NA*(06/14/16 2:32 PM)[facility] LRAGGW6694-51-94 19:32:00Negative *NA*(06/14/16 2:32 PM)[facility] RPJJCS1350-27-19 19:32:00Positive *ABN*(06/14/16 2:32 PM)[facility] TJXXKC5741-60-91 19:32:00Positive *ABN*(06/14/16 2:32 PM)[facility] JTKRAJ3618-73-63 19:32:00Negative *NA*(06/14/16 2:32 PM)[facility] LLYJSURHEVBC4650-16-18 19:16:14830Qtcmhgww ApxgmmaFUREUYSIBAIB4709-14-36 19:16:0026[facility] UlmtblbAUWXUKVFZZTH8315-47-23 19:16:007.7[facility] VPUKCCNQIUTN5081-94-46 19:16:45315Kocrumju IxsejbhWSWXOJINTVNI5134-98-99 19:16:003.7[facility] FhgqiijCTACJHHLXSOM0690-37-65 19:16:000.74[facility] MGWKJCUYSEZS7008-82-50 19:16:41700Orrgkhba EqkjwtkORBWMIDCNQPI8418-81-16 19:16:0097[facility] UwznpdmFUKAFEWBBKRH3901-02-77 19:16:0012[facility] ZXFBVCHSEKOI1680-77-49 19:16:0011.7[facility] JcdaxjiQUWRBDTCYS9035-73-20 19:16:00 1.1[facility] ApyxaqkFGADHODWPL6857-35-37 19:16:005.6[facility]annHEMATOLOGY 2016-06-14 19:16:0069.2[facility] DhvdqcpNUQWWIRMJL8307-12-28 19:16:0023.7[facility] GhftpoqWBBEOOVKNL8305-29-89 19:16:000.4[facility] VficlntZCIOSUZHAZ8527-17-09 19:16:000.6[facility] PbxtrskXTPCJBSUHO1711-97-99 19:16:008.0[facility] VDHWNIJIIL1271-76-30 19:16:002.7[facility] NcwiqcgNWJGQHDXPC9660-88-63 19:16:000.0 [facility] JkvtomxVSTTOADJNS0753-97-40 19:16:000.1[facility]annHEMATOLOGY 2016-06-14 19:16:0013.9[facility] EzkvocnFVRTZYGEMK5110-56-73 19:16:0093.7[facility] HtdygsdAFYMPFKESY6384-54-79 19:16:59587Bqlnuxei HxuiddrEDNTICELZE8166-20-66 19:16:008.2[facility] ZnrcttgRIUYIPVIAR1434-70-85 19:16:00 Test Item Value Reference Range Interpretation Comments MCH (test code = MCH) 31.3 pg 27.0-31.0 [facility] MiytwkeGNJOOGIPVO7571-22-73 19:16:0033.4[facility]annHEMATOLOGY 2016-06-14 19:16:0013.5[facility] XtlmliaDNOPYZCKPB4333-58-63 19:16:004.30[facility] PsusjpcJHNHNPYUOM9061-41-99 19:16:0011.6[facility] YemclujPULXZENQNQ9399-34-19 19:16:0040.3[facility] JtyllppGQCHRCNCMKMZ0943-61-09 19:16:47327Dgcrdiwi [facility] YTWNQENYUPBX1777-08-91 19:16:0026[facility] KslwxwiAFJSLEYSEOJF3152-73-13 19:16:00 7.7[facility] AbboncfMCMIYSDAINJX2825-00-04 19:16:99554Fajlrzcg [facility] LKUVDJOFWNHC9903-59-05 19:16:003.7[facility] ObxhhnnRVPMKJRHCAHN9461-21-29 19:16:000.74[facility] FrrxiewZCOKNHQXFOIJ5690-67-34 19:16:60867Rqguycqa [facility] RXCNAOXKWRBU6171-86-18 19:16:0097[facility] ZliegjmUCOEQFNJFHFC9324-17-47 19:16:00 12[facility] ArliqndPIFJRORFRFBD6952-61-24 19:16:0011.7[facility]annHEMATOLOGY 2016-06-14 19:16:001.1[facility] ZuudsqtBDXPUHYNMU8931-54-24 19:16:005.6[facility] EujpdnxOIOYLSLQAJ0557-46-52 19:16:0069.2[facility] LccxyyvFALSZCTFBM3189-76-43 19:16:0023.7[facility] PwbolxtSYKXJNFRWI5757-72-24 19:16:000.4[facility] EJYFELEJBL1060-75-73 19:16:000.6[facility] IvrtakqGPJDLGNUEQ4583-28-38 19:16:008.0 [facility] OzpurnjODVOHECKVM7008-19-84 19:16:002.7[facility]annHEMATOLOGY 2016-06-14 19:16:000.0[facility] MevliynZVLJDKBHBL2482-83-80 19:16:000.1[facility] QuqljxuZYKEVILQDY3302-11-72 19:16:0013.9[facility] ZudjjsnBMODGVFBVU9099-77-91 19:16:0093.7[facility] ShkpwedVJSVHQDXMS4337-71-12 19:16:62630Wyrfkfcs [facility] YJNUFVNSIC1883-26-24 19:16:008.2[facility] QmijyfnQZZNYVKCBX9027-67-78 19:16:00 Test Item Value Reference Range Interpretation Comments MCH (test code = MCH) 31.3 pg 27.0-31.0 [facility] EpyvyraBLOPHURJKE7762-51-50 19:16:0033.4[facility]annHEMATOLOGY 2016-06-14 19:16:0013.5[facility] MxueevtPFSTJLYMZK3313-91-16 19:16:004.30[facility] UpyotnuRJYTTXTZDG9736-52-07 19:16:0011.6[facility] EpdymicXJOFABYGAG7139-50-96 19:16:0040.3[facility] HermannCHEM GXBIB9637-42-51 18:35:14966Tdsvdkcj HermannCHEM HHBZM6645-84-03 18:35:86867Jytbblnx HermannCHEM BTYCT4520-67-37 18:35:000.80 [facility]annCHEM GVUAT0970-47-72 18:35:0013[facility]annCHEM PANEL 2016-03-22 18:35:84367Soqneyxp HermannCHEM QQLIP4271-31-76 18:35:008.1[facility] HermannCHEM XSQOZ4458-77-48 18:35:0026[facility]annCHEM RKBRR3883-53-94 18:35:77007Skvujhrl HermannCHEM FHXQB3530-02-29 18:35:003.7[facility] HermannCHEM KMEMA8762-59-96 18:35:0010.7[facility] DkyvkexOVHXLBMKQN1179-14-34 18:35:00 Test Item Value Reference Range Interpretation Comments MCH (test code = MCH) 31.2 pg 27.0-31.0 [facility] QvdgrtiOHXUEJSBAW4724-01-11 18:35:0092.1[facility]annHEMATOLOGY 2016-03-22 18:35:0041.0[facility] ZaepwmpJHIXSNMYOJ8670-50-80 18:35:0013.9[facility] UfysyuaAHPYZODLAU6595-42-66 18:35:0012.8[facility] YqspjrzNKSJRQYKUA1592-66-33 18:35:004.45[facility] BksizluCUHEUDUGVZ2602-72-49 18:35:80977Eejcihoz [facility] FZWINPVBZZ7918-06-14 18:35:0013.8[facility] TpggtseKHQGJGQVFK9661-27-52 18:35:00 33.9[facility] VicygbhLKGOVYNQVK6779-50-87 18:35:008.7[facility]annHEMATOLOGY 2016-03-22 18:35:0067.1[facility] EjjlfwdIBOSMWZKUD1233-37-54 18:35:0023.6[facility] NethnmmZUSMWTLCUB6859-80-87 18:35:000.0[facility] GwmsmqpGXUDKKSQSO8511-58-65 18:35:001.0[facility] YkmfdueMXRRPERCSI4519-79-34 18:35:000.2[facility] VSTTXWULFS6565-73-12 18:35:008.6[facility] GvlvjeqIASKAEPBUJ8362-99-89 18:35:003.0 [facility] DifqudaCVFTXMJRPS7186-59-30 18:35:007.6[facility]annHEMATOLOGY 2016-03-22 18:35:001.4[facility] BwhtvjiKVAPKAEZYI4901-60-22 18:35:000.3[facility] HermannCHEM CCMJS8918-50-98 18:35:29105Cmnewsdh HermannCHEM UFNLS9676-20-84 18:35:36328Ezfedmkr HermannCHEM TCSEM7203-40-61 18:35:000.80[facility]annCHEM BSSTZ1177-29-64 18:35:0013[facility] HermannCHEM WLMQJ0465-39-83 18:35:12279 [facility]annCHEM BTNJB3579-31-42 18:35:008.1[facility]annCHEM PANEL 2016-03-22 18:35:0026[facility] HermannCHEM WSJDD0313-75-77 18:35:98808Kwzzewtc HermannCHEM RTPPP3375-06-71 18:35:003.7[facility] HermannCHEM TTEMR7596-56-89 18:35:0010.7[facility] EvbfpqsZGGQPRQWUO6902-10-10 18:35:00 Test Item Value Reference Range Interpretation Comments MCH (test code = MCH) 31.2 pg 27.0-31.0 [facility] KowviarFMQRDZLTRN9991-42-79 18:35:0092.1[facility]annHEMATOLOGY 2016-03-22 18:35:0041.0[facility] KxnghlgBMRATFYBTV7780-29-84 18:35:0013.9[facility] VdnuovfJQILGPUVWV5942-09-94 18:35:0012.8[facility] EtilasfIYPSLQDMKZ4071-93-99 18:35:004.45[facility] OfwhdnlHUQTXVIYSR4914-01-65 18:35:41177Gndqcrbf [facility] UIDHSUCQLN0981-00-93 18:35:0013.8[facility] WzoeqqxPQFMCPTICV4882-98-96 18:35:00 33.9[facility] MtitmisDOLKEUUGQY9685-43-66 18:35:008.7[facility]annHEMATOLOGY 2016-03-22 18:35:0067.1[facility] LetydwrJXZUHWVLMQ3801-02-95 18:35:0023.6[facility] YtixrhjSTZWMKUFYJ8203-14-33 18:35:000.0[facility] MtbebwlGCSUYRNZCH8637-64-62 18:35:001.0[facility] XjfchccWCTKAXLMVJ0810-49-87 18:35:000.2[facility] TEPRLYRFFR0093-97-04 18:35:008.6[facility] YizlkskQILTBBRSAS4462-52-06 18:35:003.0 [facility] WxoekckUVNMXISNAG4267-03-00 18:35:007.6[facility]annHEMATOLOGY 2016-03-22 18:35:001.4[facility] BowegfkNVTFIYSIHB5452-93-33 18:35:000.3[facility] HermannCARDIAC DMKNPBO7928-89-67 20:19:00<0.02[facility] HermannCARDIAC ENZYMES 2016-02-18 20:19:000.7[facility] HermannCARDIAC DGLZLZB8262-16-52 20:19:65527 [facility]annCARDIAC NQAYMHL8131-70-77 20:19:000.6[facility] HermannCHEM PANEL 2016-02-18 20:19:94918Gzrslkmi HermannCHEM FXFAK6274-37-96 20:19:0017[facility]annCHEM ZOMFC1013-62-61 20:19:004.2[facility] HermannCHEM PSXNO9454-43-06 20:19:001.0[facility]annCHEM KQHWL7703-34-12 20:19:0011.7[facility] HermannCHEM ZZDXE3093-71-95 20:19:0022[facility]annCHEM TPJHI5510-32-61 20:19:000.4 [facility]annCHEM IYLBS9351-51-09 20:19:31743Recrmtlx HermannCHEM PANEL 2016-02-18 20:19:000.95[facility]annCHEM SXVVH7274-35-13 20:19:20677Enxnegce HermannCHEM XHMZM4959-43-83 20:19:0016[facility] HermannCHEM SBQUP2513-09-87 20:19:97260Axqgaznd HermannCHEM LORXG8684-91-84 20:19:004.1[facility]annCHEM IIJPF3732-81-85 20:19:008.3[facility]annCHEM RWZSI7985-04-61 20:19:0051 [facility]annCHEM UKDUB4382-00-35 20:19:008.5[facility]annCHEM PANEL 2016-02-18 20:19:32987Yhwyduce HermannCHEM EIZUQ0734-24-39 20:19:003.7[facility] HermannCHEM LIZYH0402-78-60 20:19:0028[facility] KipcuciVGIUPMNUSD9700-43-90 20:19:0033.6[facility] PjmsppnUVAGVUSSGU6508-83-77 20:19:48845Kdtonfbf [facility] PKSKPJSLJH7902-93-43 20:19:008.4[facility] LviejnhQPVGJADSSG4228-23-31 20:19:00 13.2[facility] StcsuyrRBRGQVXHOW5635-49-76 20:19:0011.9[facility]annHEMATOLOGY 2016-02-18 20:19:004.84[facility] XcnnrhwJVTRARIXFM5654-68-20 20:19:0014.9[facility] MeikowpWUWNNROGPB4114-63-02 20:19:00 Test Item Value Reference Range Interpretation Comments MCH (test code = MCH) 30.9 pg 27.0-31.0 [facility] DbkjmilOJHCKFVAEL0710-70-41 20:19:0044.5[facility]annHEMATOLOGY 2016-02-18 20:19:0091.9[facility] GxmrqxsVRBHFZYPCB8318-31-88 20:19:00 Test Item Value Reference Range Interpretation Comments PT (test code = PT) 12.2 s 12.0-14.7 [facility] HekaimjFQMBOXPCXC9575-57-25 20:19:000.88[facility]annHEMATOLOGY 2016-02-18 20:19:00 Test Item Value Reference Range Interpretation Comments PTT (test code = PTT) 30.2 s 22.9-35.8 [facility] WvclvijUFPYICOPDW5846-87-59 20:19:000.5[facility]annHEMATOLOGY 2016-02-18 20:19:000.1[facility] RlbhflvBCLNLPVKKR5344-25-13 20:19:002.5[facility] YhhvhmzIDXWTRSYNH5473-81-70 20:19:000.0[facility] DqsbayhPTKLVTIGGU9122-26-98 20:19:004.4[facility] JpxcbsfDEGHDZCLZT9618-06-52 20:19:0021.1[facility] NJZKDGPYDT7318-93-66 20:19:008.7[facility] MtamqxoCXVORWWQPK2836-69-33 20:19:000.4 [facility] KiraqodMYVTNMNVJE1461-47-99 20:19:000.9[facility] 2016-02-18 20:19:0073.2[facility] KspzogiSLLSQRAHWP0747-17-55 20:19:00Negative (02/18/16 3:19 PM)[facility]annCARDIAC IKWLPMY6926-17-22 20:19:00<0.02 [facility] GVTEANX9042-64-53 20:19:000.7[facility]annC[facility]AC BTBHECV9726-52-79 20:19:18595Diebhmiu HermannCARDIAC GOOEZAW2839-44-65 20:19:00 0.6[facility]annCHEM YZBQQ3007-21-24 20:19:93395Opbpwrjp HermannCHEM PANEL 2016-02-18 20:19:0017[facility]annCHEM EXNBM6596-98-88 20:19:004.2[facility]annCHE[facility] IARTU9501-44-04 20:19:001.0[facility]annCHE[facility] VZEGA0429-34-13 20:19:0011.7[facility]annCHE[facility] NIOIO6845-71-13 20:19:0022[facility]annCHE[facility] JUVPR0110-64-41 20:19:000.4[facility]annCHEM TEIBG6162-55-50 20:19:52689 [facility] XDRPH5969-56-83 20:19:000.95[facility]annCHEM PANEL 2016-02-18 20:19:04735Jcmpflzk HermannCHEM BVIQL5881-07-02 20:19:0016[facility]annCHEM HFFJA7806-84-76 20:19:98060Kihnuzzb HermannCHEM SLCBO1015-77-47 20:19:004.1[facility]annCHE[facility] YXMQK5530-12-51 20:19:008.3[facility]annCHE[facility] ZVWVK4930-29-94 20:19:0051[facility]annCHE[facility] TRQHV6616-98-25 20:19:008.5 [facility]annCHE[facility] OUKBF3948-39-46 20:19:84641Kujwjuys HermannCHEM PANEL 2016-02-18 20:19:003.7[facility]annCHEM RHJIB5778-80-05 20:19:0028[facility] IehlcfzOUIQHHVMOQ2783-89-33 20:19:0033.6[facility] VehaenqJOECLXXPLX1831-85-62 20:19:81076Sqqmdqdt VvhxwkkARLLCAYZBY9368-14-08 20:19:008.4[facility] WIZXUPTHMT6861-18-50 20:19:0013.2[facility] AvddhycHCGCIBDRXD8875-21-36 20:19:00 11.9[facility] DmomiwnRRYMSRWFHF6635-26-89 20:19:004.84[facility]HE[facility] 2016-02-18 20:19:0014.9[facility] UhebaflLZMWLKPKSE7321-52-78 20:19:00 Test Item Value Reference Range Interpretation Comments MCH (test code = MCH) 30.9 pg 27.0-31.0 [facility] ThqbaqqYKQBOROTRV7217-34-71 20:19:0044.5[facility] 2016-02-18 20:19:0091.9[facility] NrrkkeaREXKMEBTQZ0770-05-43 20:19:00 Test Item Value Reference Range Interpretation Comments PT (test code = PT) 12.2 s 12.0-14.7 [facility] UeahulqWGPBHIPSKZ9138-15-97 20:19:000.88[facility] 2016-02-18 20:19:00 Test Item Value Reference Range Interpretation Comments PTT (test code = PTT) 30.2 s 22.9-35.8 [facility] SzfopabAMDLRXQTFZ5465-45-55 20:19:000.5[facility] 2016-02-18 20:19:000.1[facility] QfyahybVMEPKVBQSC1981 20:19:002.5[facility] HupuhehICHNYDDIPY4932-60-85 20:19:000.0[facility] WfmewbwRRUQZBRXFJ6569-57-94 20:19:004.4[facility] AmwvmxsHPDTPAZFON6519-03-30 20:19:0021.1[facility] YEAMTELAYK8981-49-82 20:19:008.7[facility] TfvpbrcMKLMVGSDFJ1315-08-32 20:19:000.4 [facility] SglzxwuLDAXCXMXAM0096-52-35 20:19:000.9[facility]annHEMATOLOGY 2016-02-18 20:19:0073.2[facility] GartiuqEFPOCIVOXS0185-52-66 20:19:00Negative (02/18/16 3:19 PM)[facility]annDR[facility] ZUSJSB8012-75-45 20:07:00See Note (02/09/16 3:07 PM)[facility] SNZMHJ7731-82-41 20:07:00Positive *ABN*(02/09/16 3:07 PM)[facility] WNRQRQ0850-24-18 20:07:00Negative *NA*(02/09/16 3:07 PM)[facility] LHKRRP0816-92-85 20:07:00Positive *ABN*(02/09/16 3:07 PM) [facility] PGVSWY3019-78-51 20:07:00Negative *NA*(02/09/16 3:07 PM) [facility] OHFNPV0193-17-12 20:07:00Negative *NA*(02/09/16 3:07 PM) [facility] TQWVFE6439-67-31 20:07:00Negative *NA*(02/09/16 3:07 PM) [facility] NEGQKT7002-69-05 20:07:00Negative *NA*(02/09/16 3:07 PM) [facility] LGMEKM9018-40-98 20:07:00See Note (02/09/16 3:07 PM)[facility] UPASJD0994-21-73 20:07:00Positive *ABN*(02/09/16 3:07 PM)[facility] YOIVKM3966-33-39 20:07:00Negative *NA*(02/09/16 3:07 PM)[facility] FQDVUW1095-17-25 20:07:00Positive *ABN*(02/09/16 3:07 PM)[facility] DRZAMZ3042-55-05 20:07:00Negative *NA*(02/09/16 3:07 PM)[facility] WFKNTO4396-86-49 20:07:00Negative *NA*(02/09/16 3:07 PM)[facility] CTISNS2323-67-04 20:07:00Negative *NA*(02/09/16 3:07 PM)[facility] EVHENB8750-67-23 20:07:00Negative *NA*(02/09/16 3:07 PM)[facility] QrqltjaLRPFCKHFCE2318-58-12 16:46:0092.0[facility] ImdjkmnVSWCCVCGCQ4492-50-90 16:46:0012.8[facility] IanbweuELYDUVPDDI5547-20-93 16:46:008.6[facility] UXMJNUSSTC3252-96-96 16:46:21127Bcsjstik MjbncsyCKDIZFJGDF8061-24-54 16:46:00 Test Item Value Reference Range Interpretation Comments MCH (test code = MCH) 30.6 pg 27.0-31.0 [facility] QplowseNHHLCCSXKB2658-76-80 16:46:0033.3[facility] HermannELECTROLYTES 2016-02-09 16:46:0010.5[facility] JqbxhojIDUWKMXNHBHQ6287-76-65 16:46:61980 [facility] RzekxezYNXHLVBEVSMZ7952-28-20 16:46:008.1[facility] HermannELECTROLYTES 2016-02-09 16:46:50681Lwmzbtmn NehzgjwUBZWRTAYFKFO9361-14-19 16:46:0028[facility] EbvbuonJQZHNGSGYTES4342-41-55 16:46:45731Mzticbin DfaqdndOWVWNXULXBCR6465-22-77 16:46:003.5[facility] IydxzzoYKAYTCMFPLWZ3742-16-77 16:46:0016[facility] MRDUPIXFKGDX9900-22-75 16:46:000.81[facility] MuyqsliMJSRQEGSEQXR1536-90-53 16:46:78378Tvunfdru BebkrdkFRYVNSISUT1046-18-27 16:46:0024.4[facility] JNTJDBKLMH3692-11-73 16:46:001.2[facility] ItuzbcrHEPTEOBPOW1874-25-77 16:46:006.2 [facility] FejtvxxDTSZRLLXPW2272-72-97 16:46:0067.8[facility]annHEMATOLOGY 2016-02-09 16:46:008.6[facility] TceipfgBQWYNFIUJS7349-48-23 16:46:000.4[facility] QttvrocCVCEZJWFZC0506-34-84 16:46:000.8[facility] BsgmiqrVTWQJANYNC9174-65-06 16:46:000.1[facility] FwsquubLZJEDIQZUD2222-56-39 16:46:003.1[facility] LQFALZFBOH3124-47-90 16:46:000.0[facility] LyegyeoGPGVEQKVZC3142-04-26 16:46:00 12.7[facility] JkfmzgoFQEQMNNZBQ9980-69-76 16:46:004.69[facility]annHEMATOLOGY 2016-02-09 16:46:0014.4[facility] WkfamvtBIEGXHMWNU1738-04-91 16:46:0043.1[facility] PjgesjiMBZBTZYBVY9052-98-71 16:46:0092.0[facility] XbluhymEXBDICBKDU5148-08-26 16:46:0012.8[facility] SrcykqgDRPXVEUEQW8343-59-55 16:46:008.6[facility] OIPVVWWLCH1582-05-29 16:46:90242Jlvfnxgu RrempyyHISNADOTFE3174-17-45 16:46:00 Test Item Value Reference Range Interpretation Comments MCH (test code = MCH) 30.6 pg 27.0-31.0 [facility] BzblnmbJBXFBCFIWB6118-34-16 16:46:0033.3[facility] HermannELECTROLYTES 2016-02-09 16:46:0010.5[facility] ZwcekmbSQVIXDDENGNW0283-76-79 16:46:54516 [facility] UzaailqNXKDDWZYOPKP7582-84-19 16:46:008.1[facility]annELECTROLYTES 2016-02-09 16:46:23155Xidpbzjg JstbdnrFWWYLGJGJDOA4725-91-14 16:46:0028[facility] GmcpxwiUDDSYVQJRIWR6820-10-18 16:46:70197Gevkwzff ZmhgyuiMNGEAAUTHHHV3484-76-60 16:46:003.5[facility] JlflvpsDOGSUFQSAFMU9992-65-97 16:46:0016[facility] IGZPPJFLHAUE3756-72-67 16:46:000.81[facility] QiwdrtoHNZZVLRABHYJ3689-90-08 16:46:06006Dexnodgc UbdrbiiHYTPHKQFMI9629-93-05 16:46:0024.4[facility] KOGTOHDPSQ2024-29-53 16:46:001.2[facility] NufcngnIYALJHLKTD4191-46-96 16:46:006.2 [facility] WmjqvsjVITSOZXMYK2382-97-18 16:46:0067.8[facility]annHEMATOLOGY 2016-02-09 16:46:008.6[facility] HfyuaxqDONNVBYZTE2054-71-02 16:46:000.4[facility] VthrfywKSXAGXQJBF0972-73-04 16:46:000.8[facility] ZfjhfsqVIKCMGIJKE5378-02-59 16:46:000.1[facility] VdvgcfmPTQIHVRGMA1217-57-43 16:46:003.1[facility] WQIZYSRIEY6355-39-25 16:46:000.0[facility] AirvnaoMMFLCTLSJB6631-23-04 16:46:00 12.7[facility] ZdtdddgVKYDKMNVPO6804-23-24 16:46:004.69[facility]annHEMATOLOGY 2016-02-09 16:46:0014.4[facility] EibmeksXMGOGKTEFD4138-67-83 16:46:0043.1[facility] SptdtzkWQRKKKPET8101-41-56 17:00:0085[facility] YcodvsjZUPMGNJAY9491-49-18 17:00:00<0.02[facility] WjwhgezNTLQQVWYW4042-23-22 17:00:00<0.6[facility] UqlhuioLSIFXRXQJ0925-02-96 17:00:0083[facility] YlsoqivRXHQRJYET6330-69-54 17:00:004.0[facility] KudemgsBLTXMXWMQ6125-36-57 17:00:003.9[facility] LIMXLJMHI9183-77-17 17:00:36226Ifnvmrge CytwfvkNSKMKDMGF0449-81-20 17:00:001.0 [facility] UruumhoJHKRGZSGD0426-38-75 17:00:003.8[facility]annCHEMISTRY 2012-08-23 17:00:0024[facility] OjaalyvDYTVZEKBG5635-27-29 17:00:52999Satieylx SrfvetsFMSRBADNS5123-82-31 17:00:007.7[facility] MikctxaOHQGHUQHI7543-51-74 17:00:008.6[facility] QzmtryhBAYLDREIA4657-96-77 17:00:0034[facility] GJIJGFKPH5629-31-02 17:00:0012[facility] XsrlxceKJFDWAYWO5609-51-62 17:00:000.4 [facility] UhmitjeACNQYLLCV2385-09-97 17:00:0016.0[facility]annCHEMISTRY 2012-08-23 17:00:0024[facility] RniaonjKTBARIIMV0014-66-90 17:00:0099[facility] UxbpxznANIRGGPBO4431-90-81 17:00:83247Gipepddt RqozxgdKLJRQYAXU6693-83-93 17:00:000.7[facility] GnrflmbXPWVOJSGI8757-77-29 17:00:0017[facility] DAWCGMMGM7919-35-63 17:00:00<0.5[facility] AjqbbxyIGBJUPTMIE8904-00-31 17:00:00 0.7[facility] LjkzxfwYNMDYTPEQM4180-63-21 17:00:000.0[facility]annHEMATOLOGY 2012-08-23 17:00:000.2[facility] KnovkgqHTGODRUAVG9716-60-65 17:00:0030.2[facility] HzdojzzPQCTVLNJHD2267-01-74 17:00:005.8[facility] GtebpgfEEBJSZFQMJ6988-10-70 17:00:0062.4[facility] DsfkobyWWGJURDHAX9017-13-67 17:00:003.8[facility] VIZBBLXKIH6187-26-84 17:00:000.4[facility] GuwyywzINZDKJNXQX9406-78-50 17:00:007.9 [facility] DhffyxrLCCJKOIOWW9298-29-10 17:00:001.2[facility]annHEMATOLOGY 2012-08-23 17:00:008.5[facility] AtxvgcjYVJAFZOTVW9713-87-29 17:00:80128Hyjngymt HajlehsBFSSVOYWXI6723-07-01 17:00:0012.9[facility] SxxjwbvQENEUVXDUP2968-72-88 17:00:0094.9[facility] VoyruqmACQVPDMKYP2006-90-36 17:00:00 Test Item Value Reference Range Interpretation Comments MCH (test code = MCH) 32.6 pg 27.0-31.0 H [facility] PjavwyrNXHPIUVVVA3397-85-75 17:00:0015.1[facility]annHEMATOLOGY 2012-08-23 17:00:0044.0[facility] AlhipofGDUWHPFUJW5906-59-43 17:00:0034.4[facility] DwzjeciNMJTHXUGPJ7397-58-40 17:00:004.64[facility] XnaulssHPEECHYYBY9702-25-25 17:00:0012.7[facility] QtyxphaVDKMOWBIS3125-75-60 17:00:0085[facility] VFOTMIXLX8880-33-89 17:00:00<0.02[facility] FjmtfeuSHCLTUFOB2962-89-38 17:00:00 <0.6[facility] SfriehzHGGZYWROF4742-88-00 17:00:0083[facility]annCHEMISTRY 2012-08-23 17:00:004.0[facility] BxkpymiYERZNKEPI9627-75-46 17:00:003.9[facility] BgnxpnsCUXXPSXRV0363-54-37 17:00:90372Zzzjqqlo SzcgujbPWUFUJICA4187-71-52 17:00:001.0[facility] RxlkxgySGRVGQHDV7328-57-54 17:00:003.8[facility] QUNAOYLNC4192-23-78 17:00:0024[facility] KynhpqaLUKMREQJS5394-30-92 17:00:46094 [facility] BztylxqWZCBKMGOH9938-82-61 17:00:007.7[facility]annCHEMISTRY 2012-08-23 17:00:008.6[facility] JncvdasBQWWNKHXX6912-92-50 17:00:0034[facility] MtvcmxnVKVQWCOEB0366-72-98 17:00:0012[facility] PlmzldwBJSCAHQMH3199-34-90 17:00:000.4[facility] CbgwcvnHFFRICXAX1938-79-74 17:00:0016.0[facility] XAZZHYEAC6900-81-13 17:00:0024[facility] JdybzcmCEIEFYUDZ2381-50-96 17:00:0099 [facility] DzbcpfvOIXHDCEWN2041-45-40 17:00:91315Ahrzaclc HermannCHEMISTRY 2012-08-23 17:00:000.7[facility] JavmgkpOFWGHFKPK7768-96-96 17:00:0017[facility] SrvgrpqFFVUILRFX0615-08-97 17:00:00<0.5[facility] LlxggltDLLXAMWIJF4352-76-31 17:00:000.7[facility] RbswvupMXGJOTUYYL5364-58-79 17:00:000.0[facility] XMXZQQNNLZ3889-62-79 17:00:000.2[facility] NsxssbgLGEZDFJHOW1997-77-59 17:00:00 30.2[facility] AjdpusmOJUSYAYMIR6769-49-73 17:00:005.8[facility]annHEMATOLOGY 2012-08-23 17:00:0062.4[facility] TxkgiwuAUAEJDHQZS1645-18-93 17:00:003.8[facility] VjcpybvXMQGXOJDJT0410-69-55 17:00:000.4[facility] LsxybolLURFRZOBAT2969-70-91 17:00:007.9[facility] OjbniuxWWEQGDJFKP0439-03-55 17:00:001.2[facility] SUPIVLULTQ5350-11-62 17:00:008.5[facility] NzkcxunJQWGGJUUWA9334-36-37 17:00:84285 [facility] TcdnozaBVGKAYPRVO0996-86-96 17:00:0012.9[facility]annHEMATOLOGY 2012-08-23 17:00:0094.9[facility] AxnbynhBCCALKVIMW2583-12-11 17:00:00 Test Item Value Reference Range Interpretation Comments MCH (test code = MCH) 32.6 pg 27.0-31.0 H [facility] QsznyaoLLTOWGBIVX6168-49-71 17:00:0015.1[facility]annHEMATOLOGY 2012-08-23 17:00:0044.0[facility] DzadgakJQWPEJXRDW0647-95-72 17:00:0034.4[facility] OhwjipsEBOCSOHELX9640-11-84 17:00:004.64[facility] RciucerVHAIJLPOJA6806-37-99 17:00:0012.7[facility]
[2021-07-31 15:46] LABS: Absolute Lymphocytes (CBC) 2.4 K/uL (0.7-4.9); Basophils % 0.6 % (0-1.3); Hematocrit 41.6 % (39.6-49.0); Lymphocytes % 27.1 % (15.3-44.8); MPV 8.3 fL (7.6-11.3); RBC Red Blood Cell Count 4.47 M/uL (4.33-5.43)
[2021-07-31 15:54] LABS: Urine Blood Negative (Negative); Urine Glucose Negative (Negative); Urine Protein Negative (Negative); Urine pH 5.5 (5.0-7.0)
[2021-07-31] MEDS ORDERED: ONDANSETRON 4 MG/2 ML VIAL ONE (16:04)
[2021-07-31] MEDS ORDERED: NA CHLORIDE 0.9% 1,000 ML ONE (16:04)
[2021-07-31 16:16] LABS: Protime INR 0.93
[2021-07-31 16:21] LABS: ALT/SGPT 28 U/L (12-78); AST/SGOT 15 U/L (15-37); Albumin 3.5 g/dL (3.4-5.0); Alkaline Phosphatase 134 U/L (45-117); BUN Blood Urea Nitrogen 24 mg/dL (7-18); Bicarbonate 30 mmol/L (21-32); Bilirubin Direct 0.1 mg/dL (0-0.2); Bilirubin Total 0.6 mg/dL (0.2-1.0); Creatine Phosphokinase 66 U/L (39-308); Glucose Level 95 mg/dL (74-106); Potassium 3.5 mmol/L (3.5-5.1); Protein, Total 7.3 g/dL (6.4-8.2); Sodium Level 139 mmol/L (136-145); Troponin (Emerg Dept Use Only) < 0.02 ng/mL (0.0-0.045)
[2021-07-31 16:48] LABS: Barbiturates NEGATIVE (NEGATIVE); Benzodiazepines NEGATIVE (NEGATIVE); Cocaine POSITIVE (NEGATIVE); METHAMPHETAM POSITIVE (NEGATIVE); Methadone NEGATIVE (NEGATIVE); Opiates NEGATIVE (NEGATIVE); Phencyclidine NEGATIVE (NEGATIVE); THC Cannibis POSITIVE (NEGATIVE)
--- NOTE | 2021-07-31 19:47 | ER ---
Nurse's Notes [facility] Name: Williams Avila Jr Age: 40 yrs Sex: Male : 1980 Arrival Date: 07/31/2021 Time: 14:28 Bed 30 Private MD: Diagnosis: Chest pain, unspecified Presentation: 07/31 14:31 Chief complaint: Patient states: last week i started feeling bad. i havent been feeling tw2 like eating. i dont know what is going on with my stomach. i was on substances that i was doing with my depression. i was using the drugs to help with the depression. i used ectasy and cocaine 2 days ago. and right now i feel dry and dehydrated. Coronavirus screen: chills, congestion, cough unrelated to allergies, fatigue, Client presents with at least one sign or symptom that may indicate coronavirus-19. Standard/surgical mask placed on the client. Provider contacted for isolation considerations. Ebola Screen: Patient denies travel to an Ebola-affected area in the 21 days before illness onset. Initial Sepsis Screen: Does the patient meet any 2 criteria? No. Patient's initial sepsis screen is negative. Does the patient have a suspected source of infection? No. Patient's initial sepsis screen is negative. Risk Assessment: Do you want to hurt yourself or someone else? Patient reports no desire to harm self or others. Onset of symptoms was July 31, 2021. 14:31 Method Of Arrival: Ambulatory tw2 14:31 Acuity: RADHA 3 tw2 Triage Assessment: 14:38 General: Appears in no apparent distress. Behavior is cooperative, appropriate for age, tw2 anxious. Pain: Complains of pain in chest. Cardiovascular: Reports chest pain. Historical: - Allergies: 14:37 Codeine; tw2 - Home Meds: 14:37 amlodipine oral (Last Dose: 07/23/2021 08:00) [Active]; losartan Oral (Last Dose: tw2 07/23/2021 08:00) [Active]; - PMHx: 14:37 Hypertension; tw2 - PSHx: 14:37 Cholecystectomy; hand SX; tw2 - Immunization history:: Adult Immunizations unknown. - Social history:: Smoking status: Patient reports the use of cigarette tobacco products, smokes two packs cigarettes per day. Patient uses street drugs, cocaine, ectasy and cocaine last use 2 days ago. it was for a while like since a year or so. i started using the drugs in September. - Family history:: not pertinent. - Code Status:: Full code. Screenin:49 Abuse screen: Denies threats or abuse. Nutritional screening: No deficits noted. tw2 Tuberculosis screening: No symptoms or risk factors identified. Fall Risk None identified. 14:56 Pneumonia Screening: Shortness of Breath (3pts), Fever (3pts). Exposure risk/Travel kh1 Screening: None identified. Assessment: 14:56 General: Appears in no apparent distress. uncomfortable, Behavior is calm, cooperative. kh1 Pain: Complains of pain in abdomen Pain radiates to back Pain currently is 8 out of 10 on a pain scale. Quality of pain is described as Pain began gradually, 2-3 days ago. 15:00 Reassessment: pt c/o abd pain radiating to left side of saloni times 3 days after using kh1 cocaine and ecstasy. also c/o sob and cp. 17:00 Reassessment: Patient appears in no apparent distress at this time. No changes from [facility] previously documented assessment. Patient and/or family updated on plan of care and expected duration. Pain level reassessed. Patient is alert, oriented x 3, equal unlabored respirations, skin warm/dry/pink. 18:00 Reassessment: Patient appears in no apparent distress at this time. No changes from [facility] previously documented assessment. Patient and/or family updated on plan of care and expected duration. Pain level reassessed. Patient is alert, oriented x 3, equal unlabored respirations, skin warm/dry/pink. Vital Signs: 14:31 BP 135 / 103; Pulse 78; Resp 19; Temp 97.9(TE); Pulse Ox 99% on R/A; tw2 14:41 Weight 79.06 kg (M); tw2 14:58 BP 146 / 76; Pulse 73; Resp 16; Temp 97.2; Pulse Ox 98% on R/A; kh1 16:00 BP 128 / 70; Pulse 58; Resp 16; Temp 97.0; Pulse Ox 100% on R/A; kh1 17:00 BP 136 / 83; Pulse 54; Resp 15; Pulse Ox 99% on R/A; kh1 18:00 BP 130 / 76; Pulse 56; Resp 18; Pulse Ox 100% on R/A; kh1 Vitals: 14:58 Cardiac Rhythm Assessment Regular Sinus rhythm. 1 ED Course: 14:28 Patient arrived in ED. am2 14:34 Triage completed. tw2 14:35 Arm band placed on. tw2 14:38 EKG completed in triage. Results shown to MD. tw2 14:38 Bed in low position. Call light in reach. tw2 14:49 Patient maintains SpO2 saturation greater than 95% on room air. tw2 14:55 Shayla Lorenzo is Primary Nurse. kh1 14:56 physician office rep on. Pulse ox on. NIBP on. kh1 14:56 No provider procedures requiring assistance completed. 1 15:04 Dewey Ruiz PA is PHCP. [facility] 15:04 Behzad Storey MD is Attending Physician. [facility] 15:38 Acetaminophen Level Sent. 1 15:38 Basic Metabolic Panel Sent. 1 15:38 Troponin (emerg Dept Use Only) Sent. kh1 15:38 CPK Sent. kh1 15:38 Acetaminophen Sent. kh1 15:38 Basic Metabolic Panel Sent. kh1 15:38 CBC with Diff Sent. kh1 15:38 ETOH Level Sent. kh1 15:38 Hepatic Function Sent. kh1 15:38 PT-INR Sent. kh1 15:39 Ptt, Activated Sent. kh1 15:39 Salicylate Sent. kh1 17:40 Urine Dipstick-Ancillary Sent. kh1 20:13 IV discontinued, intact, bleeding controlled, No redness/swelling at site. Pressure em dressing applied. Administered Medications: 15:20 Drug: NS 0.9% 1000 ml Route: IV; Rate: 1 bolus; Site: right antecubital; kh1 15:20 Drug: Zofran (Ondansetron) 4 mg Route: IVP; Site: right antecubital; [facility] Outcome: 19:47 Discharge ordered by . [facility] 20:13 Discharged to home ambulatory. em 20:13 Condition: stable 20:13 Discharge instructions given to patient, Instructed on discharge instructions, follow up and referral plans. Demonstrated understanding of instructions, follow-up care. 20:14 Patient left the ED. em Signatures: Dewey Ruiz PA PA jmm Munoz, Edgar, RN RN em Lelia Hoffmana, RN RN tw2 Bethany Curiel am2 Shayla Lorenzo 1 Corrections: (The following items were deleted from the chart) 15:38 15:38 CORONAVIRUS+ drawn and sent. 1 EDMS 18:48 18:44 BP 128 / 70; Pulse 58bpm; Resp 18bpm; Pulse Ox 100% RA; Temp 97.0F Temporal; kh1 kh1
--- NOTE | 2021-07-31 19:48 | EDPHYS ---
Physician Documentation [facility] Name: Williams Avila Jr Age: 40 yrs Sex: Male : 1980 Arrival Date: 07/31/2021 Time: 14:28 Bed 30 Private MD: ED Physician Behzad Storey HPI: 07/31 15:18 This 40 yrs old Male presents to ER via Ambulatory with complaints of Chest jm Pain, Back Pain, Decreased Appetite, weight loss. 15:18 The patient or guardian reports chest pain that is located primarily in the substernal [facility] area. The pain radiates to left back. Associated signs and symptoms: Pertinent positives: cough, Pertinent negatives: abdominal pain. The chest pain is described as aching. Duration: The patient or guardian reports multiple episodes, that are intermittent, that wax and wane. Modifying factors: The symptoms are alleviated by nothing. the symptoms are aggravated by emotionally stressful situations. The patient has not experienced similar symptoms in the past. 15:21 Patient is a 40-year-old male with history of hypertension that presents emerged [facility] department with complaints of left-sided chest pain which is intermittent, patient states symptoms been ongoing for the past 3 days after ingesting cocaine and ecstasy. Patient also complains of some left flank pain as well along with cough.. Historical: - Allergies: 14:37 Codeine; tw2 - Home Meds: 14:37 amlodipine oral (Last Dose: 07/23/2021 08:00) [Active]; losartan Oral (Last Dose: tw2 07/23/2021 08:00) [Active]; - PMHx: 14:37 Hypertension; tw2 - PSHx: 14:37 Cholecystectomy; hand SX; tw2 - Immunization history:: Adult Immunizations unknown. - Social history:: Smoking status: Patient reports the use of cigarette tobacco products, smokes two packs cigarettes per day. Patient uses street drugs, cocaine, ectasy and cocaine last use 2 days ago. it was for a while like since a year or so. i started using the drugs in September. - Family history:: not pertinent. - Code Status:: Full code. ROS: 15:21 Constitutional: Negative for fever, chills, and weight loss. [facility] 15:21 Cardiovascular: Positive for chest pain. 15:21 Respiratory: Positive for cough. 15:21 All other systems are negative. Exam: 15:22 Head/Face: atraumatic. Eyes: EOMI, no conjunctival erythema appreciated ENT: Moist corrina Mucus Membranes Neck: Trachea midline, Supple Chest/axilla: Normal chest wall appearance and motion. Cardiovascular: Regular rate and rhythm. No edema appreciated Respiratory: Normal respirations, no respiratory distress appreciated Abdomen/GI: Non distended, soft Back: Normal ROM Skin: General appearance color normal MS/ Extremity: Moves all extremities, no obvious deformities appreciated, no edema noted to the lower extremities Neuro: Awake and alert, normal gait Psych: Behavior is normal, Mood is normal, Patient is cooperative and pleasant 15:22 Constitutional: The patient appears alert, awake, anxious, uncomfortable. Vital Signs: 14:31 BP 135 / 103; Pulse 78; Resp 19; Temp 97.9(TE); Pulse Ox 99% on R/A; tw2 14:41 Weight 79.06 kg (M); tw2 14:58 BP 146 / 76; Pulse 73; Resp 16; Temp 97.2; Pulse Ox 98% on R/A; kh1 16:00 BP 128 / 70; Pulse 58; Resp 16; Temp 97.0; Pulse Ox 100% on R/A; kh1 17:00 BP 136 / 83; Pulse 54; Resp 15; Pulse Ox 99% on R/A; kh1 18:00 BP 130 / 76; Pulse 56; Resp 18; Pulse Ox 100% on R/A; kh1 MDM: 15:16 Patient medically screened. [facility] 19:44 Data reviewed: vital signs, nurses notes. Counseling: I had a detailed discussion with dat the patient and/or guardian regarding: the historical points, exam findings, and any diagnostic results supporting the discharge/admit diagnosis, lab results, radiology results, the need for outpatient follow up, to return to the emergency department if symptoms worsen or persist or if there are any questions or concerns that arise at home. ED course: Patient's pain is decreased in the ER. Cardiac enzymes are negative. Vital signs otherwise unremarkable. Patient is PERC negative. Advised to follow-up PCP and otherwise given strict return precautions. Patient understood and agrees plan of care.. 07/31 15:17 Order name: Acetaminophen [facility] 07/31 15:17 Order name: Basic Metabolic Panel [facility] 07/31 15:17 Order name: CBC with Diff; Complete Time: 15:56 [facility] 07/31 15:17 Order name: ETOH Level; Complete Time: 16:22 [facility] 07/31 15:17 Order name: Hepatic Function; Complete Time: 16:22 [facility] 07/31 15:17 Order name: PT-INR; Complete Time: 16:38 [facility] 07/31 15:17 Order name: Ptt, Activated; Complete Time: 16:38 [facility] 07/31 15:17 Order name: Salicylate; Complete Time: 16:21 [facility] 07/31 15:17 Order name: Urine Drug Screen; Complete Time: 16:55 [facility] 07/31 15:17 Order name: Troponin (emerg Dept Use Only); Complete Time: 16:22 [facility] 07/31 15:17 Order name: CPK; Complete Time: 16:22 [facility] 07/31 15:17 Order name: Basic Metabolic Panel; Complete Time: 16:22 [facility] 07/31 15:17 Order name: Acetaminophen Level; Complete Time: 16:22 [facility] 07/31 14:49 Order name: EKG; Complete Time: 14:49 tw2 07/31 14:49 Order name: EKG - Nurse/Tech; Complete Time: 14:49 tw2 07/31 15:17 Order name: IV Saline Lock; Complete Time: 15:38 [facility] 07/31 15:17 Order name: Labs collected and sent; Complete Time: 15:38 [facility] 07/31 15:17 Order name: Suicide Screening ([place]); Complete Time: 17:55 [facility] 07/31 15:17 Order name: Urine Dipstick-Ancillary (obtain specimen); Complete Time: 17:55 [facility] 07/31 15:54 Order name: Urine Dipstick-Ancillary [facility] 07/31 17:23 Order name: SARS-COV-2 RT PCR; Complete Time: 17:23 EDMS Administered Medications: 15:20 Drug: NS 0.9% 1000 ml Route: IV; Rate: 1 bolus; Site: right antecubital; kh1 15:20 Drug: Zofran (Ondansetron) 4 mg Route: IVP; Site: right antecubital; kh1 Disposition: 08/01 04:48 Co-signature as Attending Physician, Behzad Storey MD I agree with the assessment and kdr plan of care. Disposition Summary: 07/31/21 19:47 Discharge Ordered Location: Home jm Condition: Stable jmm Diagnosis - Chest pain, unspecified jmm Followup: jmm - With: Private Physician - When: 2 - 3 days - Reason: Recheck today's complaints, Continuance of care, Re-evaluation by your physician Discharge Instructions: - Discharge Summary Sheet jmm - Nonspecific Chest Pain, Adult jmm Forms: - Medication Reconciliation Form jmm - Thank You Letter jmm - Antibiotic Education jmm - Prescription Opioid Use jmm Signatures: Dispatcher [employer] EDMS Behzad Storey MD MD [facility] Dewey Ruiz PA PA m Yusra Hoffman RN RN tw2 Shayla Lorenzo [facility] Corrections: (The following items were deleted from the chart) 07/31 15:38 15:19 CORONAVIRUS+Z ordered. [facility] EDIN
[2021-07-31 20:28] VITALS: TEMP 97
[2021-07-31 20:30] VITALS: BP 130/76; O2SAT 100
== END 2021-07-31 20:14 | disposition home or self-care (01) ==
LOC: ER 14:27
DX: R07.9 Chest pain, unspecified (principal); I10 Essential (primary) hypertension; F17.210 Nicotine dependence, cigarettes, uncomplicated; Z20.822 Contact with and (suspected) exposure to COVID-19; Z88.5 Allergy status to narcotic agent
CPT/HCPCS: 36415; 80048; 80076; 80307; 80320; 80329; 81003; 82550; 84484; 85025; 85610; 85730; 93005; 96374; 99285; J2405; J3360; J7030; U0003